=== PATIENT | male | born 1960 | race Two or more races ===

== ENCOUNTER 2019-07-19 23:07 | Inpatient (IN) | payer MEDICAID, OTHER ==
[~2019-07-19] VITALS: Ht 177.8 cm; Wt 88.0 kg
[2019-07-19 23:49] LABS: APPEARANCE,URINE Cloudy (CLEAR); BILIRUBIN,URINE SMALL (NEGATIVE); BLOOD, URINE Large Ery/uL (NEGATIVE); COLOR,URINE Amber (YELLOW); KETONES,URINE Trace (NEGATIVE); LEUKOCYTE ESTERASE ,URINE Negative (NEGATIVE); NITRITE, URINE Negative (NEGATIVE); PROTEIN,URINE >=300 mg/dl (NEGATIVE); UGLUCOSE Negative (NEGATIVE)
[2019-07-19 23:56] LABS: BASOPHILS # (AUTO) 0.1 /CMM (0.0-0.2); BASOPHILS % (AUTO) 0.9 % (0.0-2.0); EOSINOPHILS % (AUTO) 2.3 % (0.0-6.0); HEMATOCRIT 44 % (39-51); HEMOGLOBIN 15.1 g/dL (13.5-17.5); LYMPHOCYTES # (AUTO) 2.4 /CMM (0.8-4.8); LYMPHOCYTES % (AUTO) 23.4 % (20.0-44.0); MEAN CORPUSCULAR HGB CONC 34 g/dl (31.0-36.0); MEAN CORPUSCULAR VOLUME 81 fL (80-96); MONOCYTES % (AUTO) 9.7 % (2.0-12.0); NEUTROPHILS # (AUTO) 6.4 /CMM (1.8-8.9); NEUTROPHILS % (AUTO) 63.7 % (43.0-81.0); PLATELET COUNT (AUTO) 269 /CMM (150-450); RED BLOOD CELL COUNT(AUTO) 5.49 MIL/uL (4.5-6.0); WHITE BLOOD COUNT (AUTO) 10.1 K/uL (4.3-11.0)
[2019-07-20] MEDS ORDERED: LIDOCAINE 2% JEL UROJET 10 ML MM ONE
--- NOTE | 2019-07-20 00:04 | NUR ---
f/c was flushed w/ 100cc of NS. f/c patent . draining pink urine .,
[2019-07-20 00:05] LABS: CALCIUM, SERUM 10.1 mg/dL (8.5-10.1); CARBON DIOXIDE 28 mmol/L (21-32); CHLORIDE 103 mmol/L (98-107); CREATININE 0.9 mg/dL (0.6-1.3); GLUCOSE 121 mg/dL (74-106); POTASSIUM 3.7 mmol/L (3.5-5.1); SODIUM SERUM 139 mmol/L (136-145); UREA NITROGEN, BLOOD 11 mg/dL (7-18)
[2019-07-20 00:22] LABS: ALANINE AMINOTRANSFERASE 22 U/L (12-78); ALBUMIN 3.7 g/dL (3.4-5.0); ALKALINE PHOSPHATASE 120 U/L (46-116); ASPARTATE AMINOTRANSFERASE 16 U/L (15-37); BILIRUBIN,DIRECT 0.1 mg/dL (0.0-0.2); BILIRUBIN,TOTAL 0.6 mg/dL (0.2-1.0); LIPASE 66 U/L (73-393)
[2019-07-20 00:26] LABS: BACTERIA,URINE Few /HPF (None Seen); RBC,URINE TOO NUMEROUS TO COUN /HPF (0-2); SQUAMOUS EPITHELIAL CELL,UR Rare /HPF (None Seen)
[2019-07-20] MEDS ORDERED: CT SWABBABLE VALVE TRANS SET 1 EA INFUS.SET MC ONE (00:28)
[2019-07-20] MEDS ORDERED: IOHEXOL-300 100 ML VIAL IV ONE (00:28)
[2019-07-20] MEDS ORDERED: IV NS 0.9% 500 ML BAG IV ONE (00:30)
--- NOTE | 2019-07-20 03:22 | NUR ---
Patient is resting comfortably in bed with eyes closed. Easily aroused. VSS
[2019-07-20] MEDS ORDERED: ONDANSETRON HCL/PF 4 MG/2 ML VIAL IVP PRN (04:00)
[2019-07-20] MEDS ORDERED: ACETAMINOPHEN 325 MG TABLET PO PRN (04:00)
[2019-07-20] MEDS ORDERED: Z GUARD REMEDY 2 OZ OINT TP PRN (04:00)
[2019-07-20] MEDS ORDERED: HYDROCODONE/APAP 5/325MG 1 EACH TABLET PO PRN (04:00)
[2019-07-20] MEDS ORDERED: MAG HYDROX/AL HYDROX/SIMETH 30 ML UDC PO PRN (04:00)
[2019-07-20] MEDS ORDERED: MORPHINE SULFATE INJ 2 MG/ML DISP.SYRIN IV PRN (04:00)
[2019-07-20] MEDS ORDERED: MAGNESIUM HYDROXIDE 30 ML UDC PO PRN (04:00)
[2019-07-20] MEDS ORDERED: ZOLPIDEM TARTRATE 5 MG TABLET PO PRN (04:00)
[2019-07-20] MEDS ORDERED: ASPI-1152 PO (04:02)
[2019-07-20] MEDS ORDERED: ATOR40TA PO (04:03)
[2019-07-20] MEDS ORDERED: APIX5TAB PO (04:03)
[2019-07-20] MEDS ORDERED: FAMO20TA8 PO (04:04)
[2019-07-20] MEDS ORDERED: MULT1TAB73 PO (04:04)
[2019-07-20] MEDS ORDERED: GABA-534 PO (04:04)
[2019-07-20] MEDS ORDERED: TAMS-12 PO (04:05)
[2019-07-20] MEDS ORDERED: BISA-79 PO (04:05)
[2019-07-20] MEDS ORDERED: NAPR-1192 PO (04:06)
--- NOTE | 2019-07-20 04:06 | NUR ---
PT IS GOING TO [facility] 326-2.
--- NOTE | 2019-07-20 04:25 | NUR ---
report given to paul on third floor
[2019-07-20 05:50] VITALS: BP 106/75
--- NOTE | 2019-07-20 05:57 | NUR ---
pt was transferred to third floor in stable condition.
[2019-07-20] MEDS: IV D5/0.45 NACL 1,000 ML IV PRN (06:00)
--- NOTE | 2019-07-20 06:00 | NUR ---
MS BILL RECAPITULATION CLERK NOTES RECEIVED PATIENT VIA GURNEY ACCOMPANIED BY 2 ER STAFF. ADMITTED TO MS 326-2 DUE TO HEMATURIA. ADMISSION ROUTINE DONE. PATIENT'S BELONGINGS INVENTORY COMPLETED BY THE ASSIGNED TIN FLIPPER. PERINEAL CARE DONE. INDWELLING CATHETER ATTACHED TO URINARY BAG, 225 BRIGHT RED URINE WITH SOME CLOTS NOTED. KEPT PATIENT CLEAN, DRY AND COMFORTABLE. CALL LIGHT WITHIN EASY REACH. ON FALL AND ASPIRATION PRECAUTIONS. WILL CONTINUE TO MONITOR ACCORDINGLY.
--- NOTE | 2019-07-20 07:24 | NUR ---
RN NOTES ALL NEEDS ANTICIPATED, KEPT CLEAN DRY AND COMFORTABLE. INITIAL ADMISSION PROCESS DONE, ENDORSED TO AM NURSE FOR FOR CONTINUITY OF CARE. NO SIGNS OF ACUTE DISTRESS. NPO MAINTAINED.
[2019-07-20 08:00] VITALS: BP 113/56
--- NOTE | 2019-07-20 08:00 | NUR ---
m/s french binder: initial assessment received pt in bed awake, a/ox3. f/c draining well to gravity, still with hematuria (pink). no c/o pain or any discomfort. in no apparent distress noted. will continue to monitor.
[2019-07-20] MEDS: PANTOPRAZOLE 40 MG VIAL IV SCH (08:30)
--- NOTE | 2019-07-20 09:30 | NUR ---
m/s ore feeder: md visit seen by dr. stern and received verbal order to start pt on puree diet. order read back and carried out.
--- NOTE | 2019-07-20 12:56 | NUR ---
m/s flight operations engineer: notes dr. stern notified re: home medications with orders to continue home meds and to hold aspirin, eliquis, and naproxen. orders read back and carried out.
[2019-07-20] MEDS ORDERED: BISACODYL (5 MG) 5 MG TABLET.DR PO PRN (13:00)
--- NOTE | 2019-07-20 14:00 | NUR ---
m/s support associate: notes resting comfortable in bed. no distress noted. will monitor.
[2019-07-20] MEDS: GABAPENTIN 300 MG CAPSULE PO SCH ×2 (14:11→17:20)
[2019-07-20 16:00] VITALS: BP 112/50
[2019-07-20] MEDS: FAMOTIDINE (20 MG) 20 MG TABLET PO SCH (17:20)
[2019-07-20] MEDS: ATORVASTATIN 40 MG TABLET PO SCH (17:20)
--- NOTE | 2019-07-20 18:00 | NUR ---
m/s barrel plater: notes having dinner with hob elevated. no distress noted. needs attended. instructed to call for assistance.
--- NOTE | 2019-07-20 19:25 | NUR ---
RN OPEN NOTES RECEIVED PATIENT AWAKE IN BED. A/OX3. NO SIGNS OF DISTRESS OR DISCOMFORT. BREATHING EVEN AND UNLABORED. IV ACCESS IN RAC WITH D51/2 NS INFUSING, PATENT AND INTACT, NO SIGNS OF REDNESS OR INFILTRATION. HAS F/C INTACT DRAINING PINKISH SEDIMENT FLUID. BED IN LOW LOCKED POSITION WITH SIDE RAILS X2. CALL LIGHT WITHIN REACH. WILL CONTINUE TO MONITOR.
[2019-07-20 20:00] VITALS: BP 118/70
[2019-07-20] MEDS: TAMSULOSIN 0.4 MG CAP.SR.24H PO SCH (21:56)
[2019-07-21] MEDS: IV D5/0.45 NACL 1,000 ML IV PRN ×2 (02:04→22:48)
[2019-07-21 06:46] LABS: BASOPHILS % (AUTO) 0.5 % (0.0-2.0); EOSINOPHILS % (AUTO) 4.2 % (0.0-6.0); HEMATOCRIT 40 % (39-51); HEMOGLOBIN 13.6 g/dL (13.5-17.5); LYMPHOCYTES # (AUTO) 2.1 /CMM (0.8-4.8); LYMPHOCYTES % (AUTO) 25.9 % (20.0-44.0); MEAN CORPUSCULAR HGB CONC 34 g/dl (31.0-36.0); MEAN CORPUSCULAR VOLUME 81 fL (80-96); MONOCYTES # (AUTO) 0.8 /CMM (0.1-1.30); MONOCYTES % (AUTO) 10.3 % (2.0-12.0); NEUTROPHILS # (AUTO) 4.7 /CMM (1.8-8.9); NEUTROPHILS % (AUTO) 59.1 % (43.0-81.0); PLATELET COUNT (AUTO) 220 /CMM (150-450); RED BLOOD CELL COUNT(AUTO) 4.94 MIL/uL (4.5-6.0)
--- NOTE | 2019-07-21 06:55 | NUR ---
RN CLOSING NOTES PATIENT RESTING COMFORTABLY IN BED, EASILY AROUSABLE. A/OX3. NO SIGNS OF DISTRESS OR DISCOMFORT. BREATHING EVEN AND UNLABORED. IV ACCESS IN RAC WITH D51/2 NS INFUSING, PATENT AND INTACT, NO SIGNS OF REDNESS OR INFILTRATION. HAS F/C INTACT DRAINING PINKISH SEDIMENT FLUID. ALL NEEDS MET. NO SIGNIFICANT CHANGES THROUGH THE NIGHT. BED IN LOW LOCKED POSITION WITH SIDE RAILS X2. CALL LIGHT WITHIN REACH. WILL ENDORSE TO AM SHIFT FOR AMRIK.
[2019-07-21 06:56] LABS: CALCIUM, SERUM 9.1 mg/dL (8.5-10.1); CREATININE 0.8 mg/dL (0.6-1.3); MAGNESIUM 2.1 mg/dL (1.8-2.4); PHOSPHORUS 3.9 mg/dL (2.5-4.9); POTASSIUM 3.7 mmol/L (3.5-5.1)
[2019-07-21 07:10] LABS: THYROID STIMULATING HORMONE 1.838 uIU/mL (0.358-3.74)
--- NOTE | 2019-07-21 07:30 | NUR ---
MS/RN Opening note Patient received resting in bed A/O x3, showing no signs of acute distress or SOB, saturating well on RA. Michael catheter noted with output light pink colored. IV on the RAC 18g is clean and running at 75ml/hr. Patient complains of no pain at this time. Bed is in lowest position, side rails x2 in upright position, safety and aspiration precautions initiated. Will continue with current plan of care.
[2019-07-21 08:00] VITALS: BP 96/66
[2019-07-21] MEDS: GABAPENTIN 300 MG CAPSULE PO SCH ×3 (08:11→16:17)
[2019-07-21] MEDS: FAMOTIDINE (20 MG) 20 MG TABLET PO SCH ×2 (08:12→16:17)
[2019-07-21] MEDS: PANTOPRAZOLE 40 MG VIAL IV SCH (08:12)
--- NOTE | 2019-07-21 10:44 | NUR ---
WOUND CARE CONSULT: PT PRESENTS WITH MURRAY CATH AND BLANCHABLE REDNESS TO SACRAL AREA, PRESENT ON ADMISSION. RECOMMENDATIONS MADE FOR SKIN PROTECTION. DISCUSSED WITH NURSING STAFF. WILL SEE PRN. CAIN IN AGREEMENT WITH PLAN OF CARE. Addendum: 07/21/19 at 1045 by DOMITILA PLUNKETT WNDNU Amended: Links added.
[2019-07-21 16:00] VITALS: BP 116/73
[2019-07-21] MEDS: ATORVASTATIN 40 MG TABLET PO SCH (17:00)
--- NOTE | 2019-07-21 18:02 | NUR ---
MS/RN Closing note Patient is resting in bed, A/O x3, showing no signs of acute distress or SOB. Vital signs WNL and is saturating well on RA. Iv line on the RAC 18g is running at 75ml/hr. All patient needs met, all due meds given. Bed is in lowest position, side rails x2 in upright position, call light is within reach and patient is aware of how to call for assistance when needed. Fall, safety, and aspiration precautions enforced. Will endorse to rx specialist.
--- NOTE | 2019-07-21 19:30 | NUR ---
MS RN NOTES: RECEIVED PATIENT IN BED, RESTING AND ALERT. PATIENT IS A/OX3, VERBALLY RESPONSIVE AND ABLE TO MAKE NEEDS KNOWN. NO SOB NOTED, NO S/S OF ACUTE DISTRESS. ON ROOM AIR. BREATHING EVEN AND UNLABORED. PATIENT HAS NO COMPLAINS OF PAIN AT THIS TIME. MURRAY CATHETER NOTED WITH LIGHT PINK COLORED OUTPUT. IV ACCESS ON THE RIGHT AC #18G INTACT AND PATENT. SAFETY AND ASPIRATION PRECAUTION ARE IN PLACE. BED IS IN LOW LOCKED POSITION WITH SIDE RAILS UP X2. WILL CONTINUE TO MONITOR ACCORDINGLY.
[2019-07-21 20:00] VITALS: BP 108/70
[2019-07-21] MEDS: TAMSULOSIN 0.4 MG CAP.SR.24H PO SCH (21:53)
--- NOTE | 2019-07-22 06:23 | NUR ---
MS RN CLOSING NOTES: PATIENT IS AWAKE IN BED. STABLE AND VERBALLY RESPONSIVE. ABLE TO MAKE NEEDS KNOWN. A/O X 3. NO SOB NOTED. NO S/S OF ACUTE DISTRESS. ON ROOM AIR, BREATHING EVEN AND UNLABORED. NO COMPLAINS OF PAIN OR DISCOMFORT AT THIS TIME. VITAL SIGNS WITHIN NORMAL LIMITS. IV LINE ON RIGHT RIGHT AC #18G IS RUNNING AT 75ML/HR. INTACT AND PATENT. MURRAY CATHETER IN PLACE NOTED WITH OUTPUT OF 1450 LIGHT PINK IN COLOR. ALL DUE MEDICATION GIVEN ORDERED. TOLERATED WELL. KEPT PATIENT CLEAN AND DRY AT ALL TIMES. ALL NURSING NEEDS MET AND PROVIDED. FALL AND ASPIRATION PRECAUTIONS ENFORCED. SAFETY MEASURES KEPT IN PLACE. BED IS IN LOW LOCKED POSITION WITH SIDE RAILS UP X2. CALL LIGHT WITHIN EASY REACH OF THE PATIENT. WILL ENDORSE TO DAY SHIFT NURSE FOR AMRIK.
[2019-07-22 07:03] LABS: BASOPHILS % (AUTO) 0.6 % (0.0-2.0); HEMATOCRIT 41 % (39-51); HEMOGLOBIN 13.4 g/dL (13.5-17.5); LYMPHOCYTES # (AUTO) 2.2 /CMM (0.8-4.8); LYMPHOCYTES % (AUTO) 28.9 % (20.0-44.0); MEAN CORPUSCULAR HGB CONC 33 g/dl (31.0-36.0); MEAN CORPUSCULAR VOLUME 82 fL (80-96); MONOCYTES # (AUTO) 0.8 /CMM (0.1-1.30); MONOCYTES % (AUTO) 10.7 % (2.0-12.0); NEUTROPHILS # (AUTO) 4.3 /CMM (1.8-8.9); NEUTROPHILS % (AUTO) 55.8 % (43.0-81.0); PLATELET COUNT (AUTO) 208 /CMM (150-450); RED BLOOD CELL COUNT(AUTO) 4.94 MIL/uL (4.5-6.0); WHITE BLOOD COUNT (AUTO) 7.7 K/uL (4.3-11.0)
[2019-07-22 07:18] LABS: CALCIUM, SERUM 9.2 mg/dL (8.5-10.1); CREATININE 0.8 mg/dL (0.6-1.3); MAGNESIUM 2.1 mg/dL (1.8-2.4); PHOSPHORUS 3.7 mg/dL (2.5-4.9); POTASSIUM 3.8 mmol/L (3.5-5.1)
--- NOTE | 2019-07-22 07:48 | NUR ---
M/S RN OPENING NOTES PATIENT CURRENTLY RESTING IN BED A/O x3. ABLE TO RESPOND AND LISTEN TO COMMANDS. NO SIGNS OF ACUTE DISTRESS AND NO CURRENT COMPLAINTS OF PAIN. IV LOCATED ON R AC #18 INTACT AND PATENT RUNNING D5. MURRAY IN PLACE WITH SLIGHT LIGHT PINK/ YELLOW OUTPUT. SAFETY PRECAUTIONS ARE IN PLACE WITH BED IN LOWEST POSITION, BREAKS ON, AND CALL LIGHT WITHIN REACH. WILL CONTINUE TO MONITOR.
[2019-07-22 08:00] VITALS: BP 108/74
[2019-07-22] MEDS: GABAPENTIN 300 MG CAPSULE PO SCH ×3 (08:11→17:08)
[2019-07-22] MEDS: PANTOPRAZOLE 40 MG VIAL IV SCH (08:11)
[2019-07-22] MEDS: FAMOTIDINE (20 MG) 20 MG TABLET PO SCH ×2 (08:11→17:08)
[2019-07-22] MEDS ORDERED: TAMSULOSIN 0.4 MG CAP.SR.24H PO SCH (11:30)
--- NOTE | 2019-07-22 13:40 | NUR ---
M/S MEDICAL RECORDS MEDICAL RECORDS FROM [facility].
[2019-07-22] MEDS: IV D5/0.45 NACL 1,000 ML IV PRN (14:49)
--- NOTE | 2019-07-22 15:02 | NUR ---
Jennifer NAGEL MURRAY CATH MURRAY CATHETER REMOVED. 1200 CC OF YELLOW CLEAR URINE. Addendum: 07/22/19 at 1744 by EMELI GANDARA RN CORRECTION TO ABOVE NOTE MURRAY CATHETER REMOVED ORDERED. TOTAL URINE OUTPUT 2100 OF YELLOW, SLIGHTLY PINK URINE OUTPUT. PATIENT DENIES PAIN UPON REMOVAL. TRIAL VOID INITIATED.
[2019-07-22 16:00] VITALS: BP 124/73
[2019-07-22] MEDS: ATORVASTATIN 40 MG TABLET PO SCH (17:09)
--- NOTE | 2019-07-22 17:44 | NUR ---
M/S RN CLOSING NOTES PATIENT CURRENTLY RESTING IN BED, A/O x3. ABLE TO MAKE NEEDS KNOWN. NO SIGNS OF ACUTE DISTRESS AND NO CURRENT COMPLAINTS OF PAIN. PATIENT DENIES BLADDER PAIN. NO BLADDER FULLNESS NOTED. BLADDER SCAN TO BE PERFORMED AROUND 0800 PM ORDERED. PATIENT KEPT CLEAN AND DRY THROUGHOUT SHIFT. IV LOCATED ON R AC #18 RUNNING D5 1/2 NS @ 7ML/HR. SAFETY PRECAUTIONS IN PLACE WITH BED IN LOWEST POSITION, BREAKS ON, SIDE RAILS UP x2, AND CALL LIGHT WITHIN REACH. WILL ENDORSE TO ONCOMING SHIFT ABOUT AMRIK.
--- NOTE | 2019-07-22 19:35 | NUR ---
MS RN OPENING NOTES: RECEIVED PATIENT AWAKE IN BED. A/O X3. VERBALLY RESPONSIVE AND ABLE TO MAKE NEEDS KNOWN. NO SOB NOTED. ON ROOM AIR. BREATHING EVEN AND UNLABORED. NO S/S OF ACUTE DISTRESS. IV ACCESS LOCATED ON THE RIGHT AC #18G INTACT AND PATENT, RUNNING D5 1/2 NS @ 75 MLS/HR. NO BLADDER FULLNESS NOTED, BLADDER SCAN TO BE DONE AT 2000 ORDERED. PATIENT DENIES BLADDER PAIN. NO COMPLAINS OF PAIN OR DISCOMFORT AT THIS TIME. SAFETY PRECAUTIONS ARE IN PLACE. BED IS IN LOW, LOCKED POSITION WITH SIDE RAILS UP X2. CALL LIGHT WITHIN REACH. WILL CONTINUE TO MONITOR ACCORDINGLY.
[2019-07-22 20:00] VITALS: BP 99/64
--- NOTE | 2019-07-22 20:00 | NUR ---
MS RN NOTES: BLADDER SCAN PERFORMED AT [address] HARPER. PVR READING OF 240 ML. TO BE ASSESSED [id number]. PATIENT STATED HE URINATED 4X. NO COMPLAINS OF BLADDER PAIN AT THIS TIME. WILL CONTINUE TO MONITOR PATIENT FOR CHANGES.
[2019-07-22] MEDS: TAMSULOSIN 0.4 MG CAP.SR.24H PO SCH (21:10)
--- NOTE | 2019-07-23 02:00 | NUR ---
MS RN NOTES: BLADDER SCAN PERFORMED AT 0200. PVR READING OF 194 ML APPEARING IN LIGHT YELLOW COLOR. TO BE ASSESSED [id number]. PATIENT STATED HE IS URINATING WELL WITH NO BLADDER PAIN. WILL CONTINUE TO MONITOR PATIENT FOR CHANGES.
[2019-07-23] MEDS: IV D5/0.45 NACL 1,000 ML IV PRN (04:36)
--- NOTE | 2019-07-23 06:45 | NUR ---
MS RN CLOSING NOTES: PATIENT IS AWAKE IN BED. STABLE AND VERBALLY RESPONSIVE. ABLE TO MAKE NEEDS KNOWN. A/O X 3. NO SOB NOTED. NO S/S OF ACUTE DISTRESS. ON ROOM AIR, BREATHING EVEN AND UNLABORED. NO COMPLAINS OF PAIN OR DISCOMFORT AT THIS TIME. VITAL SIGNS WITHIN NORMAL LIMITS. IV LINE ON RIGHT RIGHT AC #18G IS RUNNING AT 75ML/HR. INTACT AND PATENT. BLADDER SCAN ORDER [id number]. PVR OF 240ML AT 2000, AND PVR OF 194ML AT 0200. NO STRAIGHT CATH NEEDED. PATIENT URINATED TWICE DURING SHIFT WITH NO COMPLAINS OF BLADDER PAIN. URINE APPEARING IN YELLOW COLOR. ALL DUE MEDICATION GIVEN ORDERED. TOLERATED WELL. KEPT PATIENT CLEAN AND DRY AT ALL TIMES. ALL NURSING NEEDS MET AND PROVIDED. KEPT PT WARM AND COMFORTABLE THROUGHOUT THE SHIFT. FALL AND ASPIRATION PRECAUTIONS ENFORCED. SAFETY MEASURES KEPT IN PLACE. HOB ELEVATED. BED IS IN LOW LOCKED POSITION WITH SIDE RAILS UP X2. CALL LIGHT WITHIN EASY REACH OF THE PATIENT. WILL ENDORSE TO DAY SHIFT NURSE FOR AMRIK.
--- NOTE | 2019-07-23 07:31 | NUR ---
MS RN NOTES PATIENT IS IN BED AWAKE, ALERT AND ORIENTED X 4. PATIENT IS STABLE AND VERBALLY RESPONSIVE. DENIES PAIN, AND DENIES ACUTE DISTRESS. BREATHING EVENLY WITH UNLABORED RESPIRATIONS. IV IS RAC #18G RUNNING 75ML/HR D5 1/2 NS. THE IV IS CLEAN, DRY AND INTACT. SHOWS NO SIGNS OF INFILTRATION, AND NO REDNESS. SAFETY PRECAUTIONS IN PLACE. BED IN LOWEST POSITION, LOCKED, AND CALL LIGHT KEPT WITHIN REACH. WILL CONTINUE TO MONITOR.
[2019-07-23 08:00] VITALS: BP 113/73
[2019-07-23 08:09] LABS: BASOPHILS % (AUTO) 0.5 % (0.0-2.0); EOSINOPHILS % (AUTO) 3.8 % (0.0-6.0); HEMATOCRIT 39 % (39-51); LYMPHOCYTES % (AUTO) 27.1 % (20.0-44.0); MEAN CORPUSCULAR HGB CONC 34 g/dl (31.0-36.0); MEAN CORPUSCULAR VOLUME 81 fL (80-96); MONOCYTES # (AUTO) 0.7 /CMM (0.1-1.30); MONOCYTES % (AUTO) 10.2 % (2.0-12.0); NEUTROPHILS # (AUTO) 4.3 /CMM (1.8-8.9); NEUTROPHILS % (AUTO) 58.4 % (43.0-81.0); PLATELET COUNT (AUTO) 215 /CMM (150-450); RED BLOOD CELL COUNT(AUTO) 4.82 MIL/uL (4.5-6.0); WHITE BLOOD COUNT (AUTO) 7.4 K/uL (4.3-11.0)
[2019-07-23 08:36] LABS: CALCIUM, SERUM 9.1 mg/dL (8.5-10.1); CREATININE 0.8 mg/dL (0.6-1.3); POTASSIUM 3.7 mmol/L (3.5-5.1)
[2019-07-23] MEDS: PANTOPRAZOLE 40 MG VIAL IV SCH (09:12)
[2019-07-23] MEDS: FAMOTIDINE (20 MG) 20 MG TABLET PO SCH (09:12)
[2019-07-23] MEDS: GABAPENTIN 300 MG CAPSULE PO SCH ×3 (09:12→12:40)
--- NOTE | 2019-07-23 16:00 | NUR ---
MS RN NOTES PATIENT IS MEDICALLY STABLE. PATIENT SHOWS NO SIGNS OF ACUTE DISTRESS, NO ACUTE PAIN. BREATHING EVEN AND UNLABORED. IV IS CLEAN, DRY AND INTACT. TAKEN OUT WITH CATHETER INTACT. ID TAKEN OFF. PATIENT LEFT WITH AMBULANCE TO NURSING CARE FACILITY. PATIENT TAUGHT DISCHARGE INSTRUCTORS AND DEMONSTRATED UNDERSTANDING. NO NEW SKIN BREAKDOWNS. NO MISSING BELONGINGS. DOC IS AWARE OF DISCHARGE.
== END 2019-07-23 16:15 | DRG 468 ==
LOC: ER 23:08 → MED 07-20 05:32
DX: R31.9 Hematuria, unspecified (principal); I31.3 Pericardial effusion (noninflammatory); N40.1 Benign prostatic hyperplasia with lower urinary tract symptoms; R33.8 Other retention of urine; I69.354 Hemiplegia and hemiparesis following cerebral infarction affecting left non-dominant side; E78.5 Hyperlipidemia, unspecified; N40.0 Benign prostatic hyperplasia without lower urinary tract symptoms; K59.00 Constipation, unspecified; I10 Essential (primary) hypertension
CPT/HCPCS: 36415; 80048-TC; 80061-TC; 80076-TC; 81000-TC; 83690-TC; 83735-TC; 84100-TC; 84443-TC; 84484-TC; 85025-TC; 87081-TC; 87086-TC; 97112-TC; 97530-TC; C9113; G0378; J3490; J7040; Q9967

== ENCOUNTER 2020-03-27 09:56 | Emergency (ER) | payer MEDICAID, OTHER ==
[~2020-03-27] VITALS: Ht 177.8 cm; Wt 91.2 kg
[~2020-03-27 09:56] MED LIST: APIX5TAB PO; ASPI-1152 PO; ATOR40TA PO; BISA-79 PO; FAMO20TA8 PO; GABA-534 PO; MULT-754 PO; NAPR-1192 PO; TAMS-12 PO
--- NOTE | 2020-03-27 10:05 | NUR ---
patient bibra from care facility. c/o bloody drainage from the castro. On room, air, breathing evenly and unlabored. connected to the monitor and pulse ox. kept comfortable, will continue to monitor accordingly.
[2020-03-27] MEDS ORDERED: LIDOCAINE 2% JEL UROJET 10 ML MM ONE (10:12)
[2020-03-27 10:19] LABS: BASOPHILS # (AUTO) 0.1 /CMM (0.0-0.2); BASOPHILS % (AUTO) 0.8 % (0.0-2.0); EOSINOPHILS % (AUTO) 3.9 % (0.0-6.0); HEMATOCRIT 45 % (39-51); HEMOGLOBIN 14.8 g/dL (13.5-17.5); LYMPHOCYTES # (AUTO) 1.6 /CMM (0.8-4.8); LYMPHOCYTES % (AUTO) 19.5 % (20.0-44.0); MEAN CORPUSCULAR HGB CONC 33 g/dl (31.0-36.0); MEAN CORPUSCULAR VOLUME 83 fL (80-96); MONOCYTES # (AUTO) 0.6 /CMM (0.1-1.30); MONOCYTES % (AUTO) 7.6 % (2.0-12.0); NEUTROPHILS # (AUTO) 5.7 /CMM (1.8-8.9); NEUTROPHILS % (AUTO) 68.2 % (43.0-81.0); PLATELET COUNT (AUTO) 209 /CMM (150-450); RED BLOOD CELL COUNT(AUTO) 5.44 MIL/uL (4.5-6.0); WHITE BLOOD COUNT (AUTO) 8.3 K/uL (4.3-11.0)
[2020-03-27] MEDS ORDERED: IV NS 0.9% 500 ML BAG IV ONE (10:30)
[2020-03-27 10:33] LABS: APPEARANCE,URINE Turbid (CLEAR); BILIRUBIN,URINE SMALL (NEGATIVE); BLOOD, URINE Large Ery/uL (NEGATIVE); COLOR,URINE Amber (YELLOW); KETONES,URINE Negative (NEGATIVE); LEUKOCYTE ESTERASE ,URINE Negative (NEGATIVE); NITRITE, URINE Negative (NEGATIVE); PH,URINE 5.5 (5.0-8.0); PROTEIN,URINE >=300 mg/dl (NEGATIVE); UGLUCOSE Negative (NEGATIVE)
[2020-03-27 10:34] LABS: ALBUMIN 3.6 g/dL (3.4-5.0); BILIRUBIN,DIRECT 0.1 mg/dL (0.0-0.2); BILIRUBIN,TOTAL 0.5 mg/dL (0.2-1.0); CALCIUM, SERUM 9.5 mg/dL (8.5-10.1); CREATININE 0.9 mg/dL (0.6-1.3); POTASSIUM 3.8 mmol/L (3.5-5.1); TOTAL PROTEIN, SERUM 7.9 g/dL (6.4-8.2)
[2020-03-27 10:36] LABS: RBC,URINE TOO NUMEROUS TO COUN /HPF (0-2)
[2020-03-27 10:38] LABS: BACTERIA,URINE Few /HPF (None Seen); SQUAMOUS EPITHELIAL CELL,UR Rare /HPF (None Seen)
--- NOTE | 2020-03-27 12:04 | NUR ---
CALLED TRANSPORT [phone]. ETA 1330 PER SILVA.
[2020-03-27 13:52] VITALS: BP 120/80
--- NOTE | 2020-03-27 13:53 | NUR ---
patient picked up by private ambulance in no distress. Denies any pain or discomfort.
[2020-03-28] MEDS ORDERED: SULF1TAB48 PO (11:32)
[2020-03-28] MEDS ORDERED: PANT40TA2 PO (11:32)
[2020-03-28] MEDS ORDERED: CEPH500C2 PO (11:32)
== END 2020-03-27 13:53 | disposition home or self-care (01) ==
LOC: ER 10:03
DX: R31.9 Hematuria, unspecified (principal); I10 Essential (primary) hypertension; E78.5 Hyperlipidemia, unspecified; Z86.73 Personal history of transient ischemic attack (TIA), and cerebral infarction without residual deficits; Z79.899 Other long term (current) drug therapy; Z79.82 Long term (current) use of aspirin
CPT/HCPCS: 36415; 51702; 74176; 80048; 80076; 81001; 85025; 85730; 87086; 99284; A4217 ×2; J3490; J7040; 81000-TC

== ENCOUNTER 2020-03-28 09:29 | Inpatient (IN) | payer MEDICAID ==
[~2020-03-28] VITALS: Ht 177.8 cm; Wt 95.7 kg
--- NOTE | 2020-03-28 10:00 | NUR ---
patient bibprivate ambulance, from [facility], c/o hematuria. On room air, breathing evenly and unlabored. connected to the monitor and pulse ox. kept comfortable, will continue to monitor accordingly.
[2020-03-28 10:07] LABS: BASOPHILS # (AUTO) 0.1 /CMM (0.0-0.2); BASOPHILS % (AUTO) 0.7 % (0.0-2.0); EOSINOPHILS % (AUTO) 3.4 % (0.0-6.0); HEMATOCRIT 44 % (39-51); HEMOGLOBIN 14.7 g/dL (13.5-17.5); LYMPHOCYTES # (AUTO) 1.7 /CMM (0.8-4.8); LYMPHOCYTES % (AUTO) 19.5 % (20.0-44.0); MEAN CORPUSCULAR HGB CONC 33 g/dl (31.0-36.0); MEAN CORPUSCULAR VOLUME 83 fL (80-96); MONOCYTES # (AUTO) 0.8 /CMM (0.1-1.30); NEUTROPHILS # (AUTO) 5.7 /CMM (1.8-8.9); NEUTROPHILS % (AUTO) 67.4 % (43.0-81.0); PLATELET COUNT (AUTO) 227 /CMM (150-450); RED BLOOD CELL COUNT(AUTO) 5.35 MIL/uL (4.5-6.0); WHITE BLOOD COUNT (AUTO) 8.5 K/uL (4.3-11.0)
[2020-03-28 10:13] LABS: CALCIUM, SERUM 9.4 mg/dL (8.5-10.1); CREATININE 0.8 mg/dL (0.6-1.3); POTASSIUM 3.9 mmol/L (3.5-5.1)
--- NOTE | 2020-03-28 10:23 | NUR ---
PAGED [facility].
--- NOTE | 2020-03-28 10:30 | NUR ---
CALLED NURSING SUP FOR M/S BED.
--- NOTE | 2020-03-28 10:53 | NUR ---
PAGED EPIC SECOND ATTEMPT.
[2020-03-28] MEDS ORDERED: CEPH500C2 PO (11:32)
[2020-03-28] MEDS ORDERED: SULF1TAB48 PO (11:32)
[2020-03-28] MEDS ORDERED: PANT40TA2 PO (11:32)
--- NOTE | 2020-03-28 11:40 | NUR ---
NURSING SUP GAVE [id number].
--- NOTE | 2020-03-28 11:43 | NUR ---
report given to Ghazal NAGEL for michael
--- NOTE | 2020-03-28 13:11 | NUR ---
COVID RESULT: NEGATIVE
--- NOTE | 2020-03-28 13:35 | NUR ---
wheeled patient via gurney accompanied by EMT in no distress. RN at bedside to assume care.
--- NOTE | 2020-03-28 14:12 | NUR ---
MS/sewer line repairer New admission from emergency room with diagnosis of hematuria. Fully admitted, skin assessment carried out. Patient noted to have rash/discoloration to buttocks, picture taken and placed in chart. 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 Awaiting admitting orders from Dr Pedraza.
[2020-03-28 16:00] VITALS: BP 143/95
[2020-03-28] MEDS ORDERED: Z GUARD REMEDY 2 OZ OINT TP PRN (16:30)
[2020-03-28] MEDS ORDERED: HYDROCODONE/APAP 5/325MG 1 EACH TABLET PO PRN (16:30)
[2020-03-28] MEDS ORDERED: ONDANSETRON HCL/PF 4 MG/2 ML VIAL IVP PRN (16:30)
[2020-03-28] MEDS ORDERED: MAG HYDROX/AL HYDROX/SIMETH 30 ML UDC PO PRN (16:30)
[2020-03-28] MEDS ORDERED: ZOLPIDEM TARTRATE 5 MG TABLET PO PRN (16:30)
[2020-03-28] MEDS ORDERED: ACETAMINOPHEN 325 MG TABLET PO PRN (16:30)
[2020-03-28] MEDS ORDERED: MAGNESIUM HYDROXIDE 30 ML UDC PO PRN (16:30)
--- NOTE | 2020-03-28 17:24 | NUR ---
MS/RN Orders Orders entered by Dr Pedraza. Urine ordered for UA and culture, specimen collected in ER on patient's visit yesterday.
--- NOTE | 2020-03-28 18:12 | NUR ---
MS/RN End note Patient remains in stable condition, all orders noted and carried out. Denies pain or discomfort, castro catheter remains with chase hematuria, no clots noted. All questions and concerns addressed. Call light within reach, bed in low setting, side rails X3 in upright position. Will continue to monitor and endorse to night monitor.
--- NOTE | 2020-03-28 19:23 | NUR ---
MS RN OPENING NOTES PATIENT AWAKE IN BED. A/OX3. ON RA. NO C/O SOB OR PAIN. BREATHING IS EVEN AND UNLABORED. IV PRESENT ON RIGHT AC, SIZE 18, INTACT & PATENT, HEP LOCKED. MURRAY CATH PRESENT, 50 CC URINE WITH HEMATURIA PRESENT. SAFETY MEASURES IN PLACE AND PATIENT'S NEEDS MET. BED LOCKED, ALARM ON, SIDE RAILS X2, CALL LIGHT WITHIN REACH. WILL CONTINUE TO MONITOR.
[2020-03-28 20:00] VITALS: BP 115/71
[2020-03-28 20:53] VITALS: BP 115/71
[2020-03-29 06:31] LABS: BASOPHILS # (AUTO) 0.1 /CMM (0.0-0.2); BASOPHILS % (AUTO) 0.8 % (0.0-2.0); EOSINOPHILS % (AUTO) 3.2 % (0.0-6.0); HEMATOCRIT 43 % (39-51); HEMOGLOBIN 14.2 g/dL (13.5-17.5); LYMPHOCYTES # (AUTO) 1.9 /CMM (0.8-4.8); LYMPHOCYTES % (AUTO) 20.4 % (20.0-44.0); MEAN CORPUSCULAR HGB CONC 33 g/dl (31.0-36.0); MEAN CORPUSCULAR VOLUME 81 fL (80-96); MONOCYTES % (AUTO) 10.4 % (2.0-12.0); NEUTROPHILS % (AUTO) 65.2 % (43.0-81.0); PLATELET COUNT (AUTO) 227 /CMM (150-450); WHITE BLOOD COUNT (AUTO) 9.3 K/uL (4.3-11.0)
[2020-03-29 06:38] LABS: CALCIUM, SERUM 9.2 mg/dL (8.5-10.1); CREATININE 0.8 mg/dL (0.6-1.3); MAGNESIUM 2.2 mg/dL (1.8-2.4); PHOSPHORUS 4.1 mg/dL (2.5-4.9); POTASSIUM 3.9 mmol/L (3.5-5.1)
[2020-03-29 06:48] LABS: THYROID STIMULATING HORMONE 1.261 uIU/mL (0.358-3.74)
--- NOTE | 2020-03-29 07:37 | NUR ---
MS RN CLOSING NOTES PATIENT AWAKE IN BED. REMAINED STABLE DURING SHIFT. NO C/O SOB OR PAIN. IV ON RIGHT AC, SIZE 18, INTACT & PATENT, HEP LOCKED. MURRAY CATH REMAINS INTACT & PATENT. SAFETY MEASURES IN PLACE AND PATIENT'S NEEDS MET. BED LOCKED, ALARM ON, SIDE RAILS X2, CALL LIGHT WITHIN REACH. ENDORSED TO DAY SHIFT RN PLAN OF CARE.
[2020-03-29 08:00] VITALS: BP 115/80
[2020-03-29] MEDS ORDERED: GABA600T12 PO (09:31)
--- NOTE | 2020-03-29 10:21 | NUR ---
WOUND CARE CONSULT; PT PRESENTS WITH LEFT BUTTOCK SCRATCHES/IRRITATION, PRESENT ON ADMISSION. PT ABLE TO ASSIST WITH TURNING AND REPOSITIONING IN BED. TERRI MCCOLLUM NOTED. RECOMMENDATIONS MADE FOR SKIN PROTECTION. DISCUSSED WITH NURSING STAFF. WILL SEE PRN. CAIN IN AGREEMENT WITH PLAN OF CARE. CURRENT JUSTIN SCORE IS 15. PT IS ON [facility]OST[facility] LOW AIRLOSS BED. Addendum: 03/29/20 at 1023 by DOMITILA PLUNKETT WNDNU Amended: Links added.
[2020-03-29] MEDS ORDERED: Medication Not On Formulary EA (Multivitamins 1 TAB) PO SCH (12:30)
[2020-03-29] MEDS: MULTIVITAMINS,THERAGRAN 1 UDTAB TABLET PO SCH (12:36)
[2020-03-29] MEDS: PANTOPRAZOLE 40 MG TABLET.DR PO SCH (12:36)
[2020-03-29] MEDS: GABAPENTIN 300 MG CAPSULE PO SCH ×3 (12:36→21:32)
[2020-03-29] MEDS ORDERED: Medication Not On Formulary EA (Gabapentin 600 MG) PO SCH (13:00)
--- NOTE | 2020-03-29 18:15 | NUR ---
RN END OF SHIFT SUMMARY PT IS A/OX4, AFEBRILE. NON-MONITORED, VSS. TOLERATING RA. RESPIRATIONS ARE EVEN AND UNLABORED, NOT IN ANY ACUTE DISTRESS NOTED. DENIES ANY CHEST PAIN, SOB, N/V. +FLATUS, BMX1. MURRAY CATH IN PLACE. IRRIGATED MURRAY 60CC X1. NO HEMATURIA NOTED. YELLOW URINE DRAINING W/ SEDIMENTS NOTED. DENIES ANY BLADDER DISCOMFORT. SKIN CDI. ALL NEEDS MET AND RENDERED. SAFETY MEASURES ARE IN PLACE. CALL LIGHT IS LEFT WITHIN REACH. WILL MONITOR AND CONTINUE POC.
--- NOTE | 2020-03-29 19:35 | NUR ---
MS RN OPENING NOTES PATIENT SLEEPING IN BED, EASY TO AWAKEN. A/OX3. ON RA. NO S/S OF ACUTE RESPIRATORY DISTRESS; BREATHING IS EVEN AND UNLABORED. NO S/S OF PAIN NOTED. IV PRESENT ON RIGHT AC, SIZE 18, INTACT & PATENT, HEP LOCKED. MURRAY CATH PRESENT AND DRAINING WELL WITH SLIGHT HEMATURIA PRESENT. SAFETY MEASURES IN PLACE AND PATIENT'S NEEDS MET. BED LOCKED, ALARM ON, SIDE RAILS X2, CALL LIGHT WITHIN REACH. WILL CONTINUE TO MONITOR.
[2020-03-29 21:30] VITALS: BP 97/69
[2020-03-29] MEDS: TAMSULOSIN 0.4 MG CAP.SR.24H PO SCH (21:32)
[2020-03-29] MEDS: ATORVASTATIN 40 MG TABLET PO SCH ×3 (21:32→22:00)
--- NOTE | 2020-03-29 22:09 | NUR ---
MS RN NOTES DUPLICATE SCHEDULED ATORVASTATIN 40MG PO HS NOTED ON EMAR FOR 2100 AND 2200. ADMINISTERED MEDICATION ONCE AT 2135 PER MD ORDERS.
[2020-03-30 06:26] LABS: BASOPHILS # (AUTO) 0.1 /CMM (0.0-0.2); BASOPHILS % (AUTO) 0.7 % (0.0-2.0); EOSINOPHILS % (AUTO) 4.1 % (0.0-6.0); HEMATOCRIT 45 % (39-51); HEMOGLOBIN 14.6 g/dL (13.5-17.5); LYMPHOCYTES # (AUTO) 2.1 /CMM (0.8-4.8); LYMPHOCYTES % (AUTO) 25.7 % (20.0-44.0); MEAN CORPUSCULAR HGB CONC 33 g/dl (31.0-36.0); MEAN CORPUSCULAR VOLUME 83 fL (80-96); MONOCYTES # (AUTO) 0.9 /CMM (0.1-1.30); MONOCYTES % (AUTO) 10.6 % (2.0-12.0); NEUTROPHILS # (AUTO) 4.8 /CMM (1.8-8.9); NEUTROPHILS % (AUTO) 58.9 % (43.0-81.0); PLATELET COUNT (AUTO) 220 /CMM (150-450); RED BLOOD CELL COUNT(AUTO) 5.41 MIL/uL (4.5-6.0); WHITE BLOOD COUNT (AUTO) 8.1 K/uL (4.3-11.0)
--- NOTE | 2020-03-30 06:30 | NUR ---
MS RN CLOSING NOTES PATIENT AWAKE IN BED. NO C/O SOB OR PAIN. IV ON RIGHT AC, SIZE 18, INTACT & PATENT, HEP LOCKED. MURRAY CATH REMAINS INTACT & PATENT; 700 CC OF CLEAR YELLOW URINE EMPTIED. SAFETY MEASURES IN PLACE AND PATIENT'S NEEDS MET. BED LOCKED, ALARM ON, SIDE RAILS X2, CALL LIGHT WITHIN REACH. WILL ENDORSE TO DAY SHIFT RN PLAN OF CARE.
[2020-03-30 06:37] LABS: CALCIUM, SERUM 9.3 mg/dL (8.5-10.1); CREATININE 0.8 mg/dL (0.6-1.3); MAGNESIUM 2.4 mg/dL (1.8-2.4); PHOSPHORUS 4.1 mg/dL (2.5-4.9); POTASSIUM 3.6 mmol/L (3.5-5.1)
[2020-03-30] MEDS: PANTOPRAZOLE 40 MG TABLET.DR PO SCH (07:30)
[2020-03-30 08:00] VITALS: BP 110/71
--- NOTE | 2020-03-30 08:00 | NUR ---
MS RN NOTES PATIENT IN BED RESTING NO SOB OR ACUTE DISTRESS NOTED. PATIENT ALERT, ORIENTED X3. BED IN LOW LOCKED POSITION. CALL LIGHT WITHIN REACH. MURRAY INTACT PATENT, DRAINING YELLOW URIN. WILL CONTINUE TO MONITOR.
[2020-03-30] MEDS: MULTIVITAMINS,THERAGRAN 1 UDTAB TABLET PO SCH (08:13)
[2020-03-30] MEDS: GABAPENTIN 300 MG CAPSULE PO SCH ×3 (08:13→16:29)
[2020-03-30] MEDS ORDERED: ASPIRIN EC 81 MG TABLET.DR PO SCH (09:00)
--- NOTE | 2020-03-30 15:00 | NUR ---
ORDERED MURRAY CATH REMOVED WILL MONITOR FOR RETENTION.
[2020-03-30 16:00] VITALS: BP 113/70
[2020-03-30] MEDS: TAMSULOSIN 0.4 MG CAP.SR.24H PO SCH (16:51)
--- NOTE | 2020-03-30 18:00 | NUR ---
MS RN NOTES TRANSFORATION HERE AT BEDSIDE PATIENT HAS NOT URINATED. DR. ELDRIDGE MADE AWARE ORDERS TO RESCHEDULE TRANSPORTATION FOR 9PM IF PATIENT HAS NOT URINATED REINSERT MURRAY AND DISCHARGE WITH MURRAY. ORDERS NOTED. CASE MANAGENT MADE AWARE TO RESCHEDULE TRANSPORTATION FOR 9PM.
--- NOTE | 2020-03-30 19:00 | NUR ---
MS RN NOTES RECEIVED PT IN BED AWAKE AND ABLE TO MAKE NEEDS KNOWN. PT A/O X3. RESPIRATIONS EVEN AND UNLABORED WITH NO S/S OF ACUTE DISTRESS OR SOB NOTED. NO COMPLAINTS OF PAIN AT THIS TIME. PT NOTED WITH RAC #18G PATENT AND INTACT AND SL. PT PENDING DC. SAFETY MEASURES IN PLACE WITH BED IN LOWEST LOCKED POSITION WITH SIDE RAILS UP X2. CALL LIGHT WITHIN REACH. WILL CONTINUE TO MONITOR.
--- NOTE | 2020-03-30 19:28 | NUR ---
MS RN NOTES PATIENT IN BED RESTING. NOTED 100ML OF URINE. ALL DUE MEDICATIONS ADMINISTERED. ALL NEEDS MET. ENDORSED DISCHARGE FOR PM SHIFT.
[2020-03-30 20:10] VITALS: BP 105/63
--- NOTE | 2020-03-30 21:30 | NUR ---
MS RN NOTES ATTEMPTED TO INSERT FC INTO PT PRIOR TO DISCHARGE, PT REFUSED. PT STATED "ILL URINATE WHEN I GET THERE, THIS HURTS." WILL CONTINUE TO MONITOR.
--- NOTE | 2020-03-30 21:45 | NUR ---
MS PIPE LAYER HELPER NOTES PT DC BACK TO FACILITY VIA AMBULANCE IN STABLE CONDITION. PT A/O X3. RESPIRATIONS EVEN AND UNLABORED WITH NO S/S OF ACUTE DISTRESS OR SOB NOTED. NO COMPLAINTS OF PAIN AT THIS TIME. PT RAC #18G REMOVED WELL ID BAND. DISCHARGE INSTRUCTIONS WENT OVER WITH PT AND PT VERBALIZED UNDERSTANDING. PT DC PAPERS GIVEN TO AMBULANCE. PT NOT DC WITH FC PT REFUSED.
== END 2020-03-30 21:40 | DRG 501 ==
LOC: ER 09:32 → MED 13:14
PROVIDERS: ADMIT Student in an Organized Health Care Education/Training Program; ATTEND Student in an Organized Health Care Education/Training Program
DX: N40.1 Benign prostatic hyperplasia with lower urinary tract symptoms (principal); N39.0 Urinary tract infection, site not specified; R31.9 Hematuria, unspecified; R33.8 Other retention of urine; I31.3 Pericardial effusion (noninflammatory); K59.00 Constipation, unspecified; E78.5 Hyperlipidemia, unspecified; I69.354 Hemiplegia and hemiparesis following cerebral infarction affecting left non-dominant side; D68.59 Other primary thrombophilia; I10 Essential (primary) hypertension; Z79.82 Long term (current) use of aspirin; Z79.899 Other long term (current) drug therapy
CPT/HCPCS: 36415; 80048-TC; 80061-TC; 83735-TC; 84100-TC; 84443-TC; 85025-TC; 87081-TC; G0378; J7030

== ENCOUNTER 2020-04-10 09:07 | Inpatient (IN) | payer MEDICAID ==
[~2020-04-10] VITALS: Ht 170.2 cm; Wt 87.5 kg
[~2020-04-10 09:07] MED LIST changes: -ASPI-1152 PO; +ASPI-1420 PO; -BISA-79 PO; -FAMO20TA8 PO; -GABA-534 PO; +GABA600T12 PO; -NAPR-1192 PO; +PANT40TA2 PO
--- NOTE | 2020-04-10 09:20 | NUR ---
BIB ems from home assisted living for hematuria. Resp is even and unlabored with nad noted. Awaiting md for eval.
[2020-04-10] MEDS ORDERED: LIDOCAINE 2% JEL UROJET 10 ML MM ONE (09:35)
[2020-04-10 09:39] LABS: BASOPHILS # (AUTO) 0.1 /CMM (0.0-0.2); BASOPHILS % (AUTO) 0.8 % (0.0-2.0); EOSINOPHILS % (AUTO) 4.2 % (0.0-6.0); HEMATOCRIT 44 % (39-51); HEMOGLOBIN 14.1 g/dL (13.5-17.5); LYMPHOCYTES # (AUTO) 1.7 /CMM (0.8-4.8); LYMPHOCYTES % (AUTO) 21.7 % (20.0-44.0); MEAN CORPUSCULAR HGB CONC 32 g/dl (31.0-36.0); MEAN CORPUSCULAR VOLUME 82 fL (80-96); MONOCYTES # (AUTO) 0.7 /CMM (0.1-1.30); MONOCYTES % (AUTO) 8.8 % (2.0-12.0); NEUTROPHILS # (AUTO) 5.1 /CMM (1.8-8.9); NEUTROPHILS % (AUTO) 64.5 % (43.0-81.0); PLATELET COUNT (AUTO) 212 /CMM (150-450); RED BLOOD CELL COUNT(AUTO) 5.29 MIL/uL (4.5-6.0); WHITE BLOOD COUNT (AUTO) 7.9 K/uL (4.3-11.0)
[2020-04-10 09:51] LABS: CALCIUM, SERUM 9.1 mg/dL (8.5-10.1); CREATININE 0.8 mg/dL (0.6-1.3); POTASSIUM 3.9 mmol/L (3.5-5.1)
[2020-04-10 10:12] LABS: APPEARANCE,URINE Turbid (CLEAR); BILIRUBIN,URINE LARGE (NEGATIVE); BLOOD, URINE Large Ery/uL (NEGATIVE); COLOR,URINE Red (YELLOW); KETONES,URINE 80 (NEGATIVE); LEUKOCYTE ESTERASE ,URINE Large (NEGATIVE); NITRITE, URINE Positive (NEGATIVE); PROTEIN,URINE >=300 mg/dl (NEGATIVE); UGLUCOSE 250 MG/DL mg/dL (NEGATIVE); UROBILINOGEN,URINE >=8.0 EU/dL (0.2)
[2020-04-10 10:14] LABS: PH,URINE >9.0 (5.0-8.0)
--- NOTE | 2020-04-10 10:17 | NUR ---
CALLED OFFICE OF KOMAL ROSE MD
[2020-04-10 10:22] LABS: BACTERIA,URINE Many /HPF (None Seen); RBC,URINE TOO NUMEROUS TO COUN /HPF (0-2); SQUAMOUS EPITHELIAL CELL,UR Few /HPF (None Seen); WBC,URINE TOO NUMEROUS TO COUN /HPF (0-3)
[2020-04-10] MEDS ORDERED: PIPERACILLIN /TAZOBACTAM 3.375 G in IV D5W 50 ML IV ONE (10:30)
--- NOTE | 2020-04-10 11:03 | NUR ---
called Dr. Ascencio's office for admission and awaiting to call back
--- NOTE | 2020-04-10 11:26 | NUR ---
DR MOCK PAGED THRU CELL AND OFFICE
--- NOTE | 2020-04-10 12:15 | NUR ---
COVID SWAB DONE AND SENT TO LAB
--- NOTE | 2020-04-10 15:35 | NUR ---
wheeled patient via gurney accompanied by EMT in no distress. RN at bedside to assume care.
[2020-04-10] MEDS ORDERED: IV NS 0.9% 1,000 ML IV PRN (16:25)
[2020-04-10] MEDS ORDERED: Z GUARD REMEDY 2 OZ OINT TP PRN (16:30)
[2020-04-10] MEDS ORDERED: CEFTRIAXONE 1 G in IV D5W 50 ML IV SCH (17:30)
[2020-04-10] MEDS: ATORVASTATIN 40 MG TABLET PO SCH (17:40)
[2020-04-10] MEDS: GABAPENTIN 300 MG CAPSULE PO SCH ×3 (17:40→21:00)
[2020-04-10] MEDS: APIXABAN 5 MG TABLET PO SCH (17:40)
--- NOTE | 2020-04-10 18:30 | NUR ---
RN Closing note Patient in bed, remains AO x 4, informed MD DVT score 3, but no new order at this time. Skin is warm to touch, keep clean/dry, intact IV site, no fever. Noticed blood in urine, provided castro catheter care, 1,300ml out put. Kept bed in locked in with elevated HOB, for ensure airway and aspiration precaution. Call light within reach, will endorse night nurse.
--- NOTE | 2020-04-10 19:40 | NUR ---
MS RN OPENING NOTES PATIENT RECEIVED RESTING IN BED COMFORTABLY; A/OX3; BREATHING EVEN AND UNLABORED; TOLERATING ROOM AIR WELL; NO SOB NOTED; R AC # 18 INTACT AND PATENT, INFUSING NS @ 75ML/HR; TOLERATING IVF WELL; NO S/S OF REDNESS OR INFILTRATION NOTED; MURRAY CATH IN PLACE, HEMATURIA NOTED; MD AWARE; PATIENT ABLE TO MAKE NEEDS KNOWN; SAFETY PRECAUTIONS IMPLEMENTED; BED LOCKED IN LOW POSITION; SIDE RAILSX2; CALL LIGHT WITHIN REACH; WILL CONT TO MONITOR
[2020-04-10 20:00] VITALS: BP 140/97
--- NOTE | 2020-04-10 20:45 | NUR ---
MS RN NOTES PATIENT COMPLAINING OF ABDOMINAL PAIN AND REQUESTING TYLENOL WITH DUE MEDICATION; VITALS 140/97; PATIENT A/OX3-4; WILL ADMINISTER TYLENOL PER MD ORDER; WILL CONT TO MONITOR
[2020-04-10] MEDS: ACETAMINOPHEN 325 MG TABLET PO PRN (20:54)
[2020-04-10] MEDS: TAMSULOSIN 0.4 MG CAP.SR.24H PO SCH (21:06)
[2020-04-10] MEDS: ONDANSETRON HCL/PF 4 MG/2 ML VIAL IVP PRN (23:26)
--- NOTE | 2020-04-10 23:38 | NUR ---
MS RN NOTES PATIENT MURRAY CLOGGED, CHARGE NURSE AWARE; MURRAY IRRIGATED, CHARGE NURSE AT BEDSIDE DURING IRRIGATION; MD MADE AWARE; DURING IRRIGATION PATIENT COMPLAINT OF NAUSEA; ADMINISTERED ZOFRAN PER MD ORDER; PATIENT ALSO COMPLAINING OF ABDOMINAL PAIN; MD MADE AWARE; AWAITING FOR ORDERS; CHARGE NURSE AWARE; R AC # 18 PULLED OUT ON ACCIDENT; NEW IV LINE OBTAINED; R HAND #20; PATIENT REFUSING IVF; RISKS AND BENEFITS DISCUSSED; PATIENT STILL REFUSING; WILL CONT TO MONITOR
--- NOTE | 2020-04-11 | NUR ---
MS RN NOTES ABDOMINAL DISTENTION NOTED; PER CHARGE NURSE, ULTRASOUND OF BLADDER SHOULD BE DONE; US BLADDER ORDERED; AWAITING RESULTS
--- NOTE | 2020-04-11 01:20 | NUR ---
MS RN NOTES US BLADDER SCAN DONE; 900ML FOUND IN ABDOMEN; CHARGE NURSE AWARE; IRRIGATED MURRAY; PATIENT COMPLAINED OF ABDOMINAL PAIN; MURRAY OUTPUT HEMATURIA STILL NOTED, MORE CLEAR COMPARED TO START OF SHIFT; WILL CONT TO MONITOR
--- NOTE | 2020-04-11 01:39 | NUR ---
MS RN NOTES PATIENT REQUESTING STRONGER PAIN MEDICATION OTHER THAN TYLENOL FOR ABDOMINAL PAIN; MD MADE AWARE; CHARGE NURSE AWARE; PER MD, NOR[place]IES 3/325 Q6HR FOR SEVERE (8-10) PAIN; PER PATIENT; PAIN IS 10/10 IN ABDOMINAL AREA; WILL ADMINISTER PAIN MED PER MD ORDER; WILL CONT TO MONITOR
[2020-04-11] MEDS: HYDROCODONE/APAP 5/325MG TABLET PO PRN ×4 (01:52→20:55)
--- NOTE | 2020-04-11 06:48 | NUR ---
MS RN CLOSING NOTES PATIENT RESTING IN BED COMFORTABLY; A/OX3, BREATHING EVEN AND UNLABORED; NO SOB NOTED; PATIENT TOLERATING ROOM AIR WELL; MURRAY IN PLACE, WITH HEMATURIA NOTED; IRRIGATED MURRAY THROUGHOUT SHIFT, MD AWARE; R HAND #20 INTACT AND PATENT, FLUSHING WELL; PATIENT DOES NOT WANT TO HAVE FLUIDS THROUGHOUT NIGHT D/T PAIN IN ABDOMEN AREA, PATIENT KEEPS MOVING IN BED, PATIENT AWARE OF IMPORTANCE AND WILL AGREE FOR FLUIDS IN AM; WILL INFORM DAY SHIFT; PATIENT ABLE TO MAKE NEEDS KNOWN; ALL NEEDS RENDERED; SAFETY PRECAUTIONS IMPLEMENTED; BED LOCKED IN LOW POSITION; SIDE RAILSX2; CALL LIGHT WITHIN REACH; WILL ENDORSE AMRIK TO ONCOMING SHIFT
--- NOTE | 2020-04-11 07:30 | NUR ---
RN MED/SURG OPENING NOTES Received patient alert and oriented x 3-4. Encouraged and able to make needs known. Respiration is even and easy with no SOB. F/C is intact but with hematuria noted. Awaiting for urine culture/sensitivity and possible recommendations from MD. Will continue to monitor for any changes.
[2020-04-11 08:00] VITALS: BP 124/88
[2020-04-11 08:14] LABS: BASOPHILS % (AUTO) 0.1 % (0.0-2.0); HEMATOCRIT 40 % (39-51); HEMOGLOBIN 12.9 g/dL (13.5-17.5); LYMPHOCYTES # (AUTO) 0.6 /CMM (0.8-4.8); LYMPHOCYTES % (AUTO) 2.8 % (20.0-44.0); MEAN CORPUSCULAR HGB CONC 32 g/dl (31.0-36.0); MEAN CORPUSCULAR VOLUME 82 fL (80-96); MONOCYTES # (AUTO) 0.6 /CMM (0.1-1.30); MONOCYTES % (AUTO) 3.2 % (2.0-12.0); NEUTROPHILS % (AUTO) 93.9 % (43.0-81.0); PLATELET COUNT (AUTO) 317 /CMM (150-450); RED BLOOD CELL COUNT(AUTO) 4.85 MIL/uL (4.5-6.0); WHITE BLOOD COUNT (AUTO) 20.2 K/uL (4.3-11.0)
[2020-04-11 08:37] LABS: ALBUMIN 3.7 g/dL (3.4-5.0); BILIRUBIN,TOTAL 0.3 mg/dL (0.2-1.0); CALCIUM, SERUM 9.1 mg/dL (8.5-10.1); CREATININE 1.1 mg/dL (0.6-1.3); MAGNESIUM 2.2 mg/dL (1.8-2.4); PHOSPHORUS 3.7 mg/dL (2.5-4.9); POTASSIUM 4.2 mmol/L (3.5-5.1); TOTAL PROTEIN, SERUM 7.8 g/dL (6.4-8.2)
[2020-04-11] MEDS: ASPIRIN EC 81 MG TABLET.DR PO SCH ×2 (08:52→09:00)
[2020-04-11] MEDS: PANTOPRAZOLE 40 MG TABLET.DR PO SCH (08:52)
[2020-04-11] MEDS: GABAPENTIN 300 MG CAPSULE PO SCH ×5 (08:53→20:54)
[2020-04-11] MEDS: APIXABAN 5 MG TABLET PO SCH ×2 (09:00→16:26)
[2020-04-11] MEDS: PIPERACILLIN /TAZOBACTAM 3.375 G in IV D5W 100 ML IV SCH ×2 (10:36→17:11)
[2020-04-11] MEDS ORDERED: PIPERACILLIN /TAZOBACTAM 3.375 G in IV D5W 50 ML IV SCH (12:00)
--- NOTE | 2020-04-11 13:00 | NUR ---
INDUSTRIAL ECOLOGIST NOTES Patient remains alert oriented x3-4. Patient refused Gabapentin medication despite of explanation of risk and benefits of not taking it. Respiration is even and easy with no shortness of breath. Able to tolerate current diet. Will continue to monitor.
[2020-04-11 16:00] VITALS: BP 108/78
[2020-04-11] MEDS: ATORVASTATIN 40 MG TABLET PO SCH (17:12)
--- NOTE | 2020-04-11 19:12 | NUR ---
CHIEF CLERK CLOSING NOTES Patient remains alert, oriented x 3-4. Verbally responsive, and able to make needs known. Dr Jade with orders to D/C 16F Castro Catheter and change to 20F, but unavailable at this time. stated OK to use 22F F/C, but when attempted to insert 22F F/C, patient was not able to tolerate it. Inserted new 2 way F/C 16F, and connected to drainage bag. Patient able to tolerate procedure. Central supply staff stated they will send tubing for continous bladder irrigation. Patient was able to tolerate castro catheter change. Respiration is even and easy with no shortness of breath. Kept safe and comfortable at all times.
--- NOTE | 2020-04-11 19:30 | NUR ---
ms rn opening note received patient in bed. a/ox3-4. tolerating room air. respirations are even and unlabored. no s/s sob noted. no c/o pain at this time. in no apparent distress. iv access in right hand #20 patent running zosyn @25ml/hr. castro catheter is present, draining to gravity, urine is hematuria. bed i slow and locked hob elevated in semi fowlers, side rials up x2. call light within reach. will continue to monitor.
[2020-04-11 20:00] VITALS: BP 109/68
[2020-04-11 20:22] VITALS: BP 109/68
[2020-04-11] MEDS: TAMSULOSIN 0.4 MG CAP.SR.24H PO SCH (21:11)
--- NOTE | 2020-04-11 21:15 | NUR ---
ms rn note retrieved a bladder irrigation tubing from ER. hand irrigation with 40ml and connected patient to continuos bladder irrigation with a 16Fr [address] castro. will continue to monitor.
[2020-04-12] MEDS: PIPERACILLIN /TAZOBACTAM 3.375 G in IV D5W 100 ML IV SCH ×3 (01:22→17:08)
--- NOTE | 2020-04-12 06:57 | NUR ---
ms rn closing note patient in bed. a/ox3-4. tolerating room air. no respiratory distress noted. managed pain with norco 5. iv access maintained in right hand #20 running ns@75ml/hr. castro catheter is maintained, continous bladder irrigation, draining to gravity, urine is hematuria, amoutnt in is 4500 out amount 4700. bed remains slow and locked hob elevated in semi fowlers, side rials up x2. call light within reach. will endorse to next shift
[2020-04-12 07:07] LABS: BASOPHILS % (AUTO) 0.1 % (0.0-2.0); HEMATOCRIT 38 % (39-51); HEMOGLOBIN 12.1 g/dL (13.5-17.5); LYMPHOCYTES # (AUTO) 1.6 /CMM (0.8-4.8); MEAN CORPUSCULAR HGB CONC 32 g/dl (31.0-36.0); MEAN CORPUSCULAR VOLUME 83 fL (80-96); MONOCYTES # (AUTO) 2.8 /CMM (0.1-1.30); MONOCYTES % (AUTO) 10.6 % (2.0-12.0); NEUTROPHILS % (AUTO) 83.3 % (43.0-81.0); PLATELET COUNT (AUTO) 294 /CMM (150-450); RED BLOOD CELL COUNT(AUTO) 4.57 MIL/uL (4.5-6.0); WHITE BLOOD COUNT (AUTO) 26.4 K/uL (4.3-11.0)
--- NOTE | 2020-04-12 07:17 | NUR ---
MS RN OPENING NOTES RECEIVED PT AWAKE IN BED IN NO ACUTE SIGNS OF DISTRESS. A/OX3. ABLE TO MAKE NEEDS KNOWN, DENIES PAIN OR ANY DISCOMFORTS AT THIS TIME. ON ROOM AIR, BREATHING EVEN AND UNLABORED. IV ACCESS ON LEFT HAND G#20 INTACT AND PATENT, INFUSING NS @ 75ML/HR, NO S/S OF REDNESS OR INFILTRATION NOTED. MURRAY CATH IN PLACE, REMAINS WITH HEMATURIA, CONTINUOUS BLADDER IRRIGATION IN PROGRESS AND DRAINING VIA GRAVITY. SAFETY PRECAUTIONS IN PLACE; BED LOCKED AND IN IN LOW POSITION, SIDE RAILS X2 AND CALL LIGHT WITHIN REACH. WILL CONT TO MONITOR PT ACCORDINGLY.
[2020-04-12 07:38] LABS: CALCIUM, SERUM 9.4 mg/dL (8.5-10.1); CREATININE 3.1 mg/dL (0.6-1.3); MAGNESIUM 2.4 mg/dL (1.8-2.4); PHOSPHORUS 4.2 mg/dL (2.5-4.9); POTASSIUM 4.7 mmol/L (3.5-5.1)
[2020-04-12 08:00] VITALS: BP 100/64
[2020-04-12] MEDS: GABAPENTIN 300 MG CAPSULE PO SCH ×4 (08:16→21:23)
[2020-04-12] MEDS: PANTOPRAZOLE 40 MG TABLET.DR PO SCH (08:16)
[2020-04-12] MEDS: ASPIRIN EC 81 MG TABLET.DR PO SCH (08:39)
[2020-04-12] MEDS: APIXABAN 5 MG TABLET PO SCH ×2 (08:39→17:00)
--- NOTE | 2020-04-12 11:50 | NUR ---
RN NOTES RECEIVED CALL FROM LAB THAT PT'S HAS HIGH LACTIC ACID 5.3. MICHA DANIEL NOTIFIED WITH ORDER TO INFUSED 1 L OF NS THEN RECHECK LACTIC ACID AFTER. WILL CARRY OUT ORDER AND CONTINUE TO MONITOR PT.
[2020-04-12] MEDS ORDERED: IV NS 0.9% 1,000 ML IV ONE (12:00)
[2020-04-12] MEDS: IV NS 0.9% 1,000 ML IV PRN (15:00)
[2020-04-12 16:00] VITALS: BP 123/80
--- NOTE | 2020-04-12 16:34 | NUR ---
RN NOTES INFORMED DR JOSE OF PT'S US KIDNEYS RESULTS. DR JOSE HE CAME TO UNIT AND SEEN PT WITH ORDER TO REMOVED MURRAY CATHETER AND RE-INSERT NEW ONE. PT REMAINS WITH HEMATURIA AND BLOOD CLOTS. MURRAY CATHETER STILL LEAKING FROM URETHRA/PENIS. CBI CONTINUES. WILL CONTINUE TO MONITOR.
[2020-04-12] MEDS: ATORVASTATIN 40 MG TABLET PO SCH (17:07)
--- NOTE | 2020-04-12 18:50 | NUR ---
MS RN CLOSING NOTES PT IN BED AWAKE AND RESTING @ MODERATE HIGH BACKREST POSITION. A/OX3. ABLE TO MAKE NEEDS KNOWN. ON ROOM AIR, TOLERATING WELL WITH NO SOB NOTED THROUGHOUT THE DAY. IV ACCESS ON LEFT HAND G#20 INTACT AND PATENT, INFUSING ATB SOZYN AT 25ML/HR AT THIS TIME, NO S/S OF REDNESS OR INFILTRATION NOTED. [address] WAY MURRAY CATH IN PLACE, HEMATURIA PERSIST, CONTINUOUS BLADDER IRRIGATION IN PROGRESS AND DRAINING VIA GRAVITY. DR SRINIVASAN ON UNIT AT THIS TIME WITH ORDER TO DO BLADDER SCAN, 999 ML RESIDUALS NOTED AND REPORTED TO HIM. SAFETY PRECAUTIONS IN PLACE; BED LOCKED AND IN IN LOW POSITION, SIDE RAILS X2 AND CALL LIGHT WITHIN REACH. ALL NEEDS AND CARE ATTENDED WELL. WILL ENDORSE TO NIGHT MONITOR NURSE FOR AMRIK. .
[2020-04-12] MEDS ORDERED: IV NS 0.9% 1,000 ML IV PRN (19:00)
--- NOTE | 2020-04-12 19:09 | NUR ---
MS RN NOTES PATIENT IN BED, AWAKE, ALERT AND ORIENTED X 3. BREATHING EVEN AND UNLABORED ON ROOM AIR. SHOWS NO SIGNS OF ACUTE RESPIRATORY DISTRESS, NO ACUTE PAIN. WITH 3 WAY MURRAY FLOWING RED TINGED URINE WITH CONTINUOUS BLADDER IRRIGATION BY GRAVITY. R HAND 20G RUNNING ZOSYN. SHOWS NO SIGNS OF INFILTRATION, NO REDNESS. SAFETY PRECAUTIONS IN PLACE. BED IN LOWEST POSITION, LOCKED, AND CALL LIGHT KEPT WITHIN REACH. WILL CONTINUE TO MONITOR.
[2020-04-12 20:00] VITALS: BP 100/59
[2020-04-12] MEDS: TAMSULOSIN 0.4 MG CAP.SR.24H PO SCH (21:23)
[2020-04-13] VITALS (32 sets, daily range): BP systolic 50–170; BP diastolic 28–117
[2020-04-13 00:50] LABS: URINE SODIUM, RANDOM 153 mmol/l (40-220); URINE TOTAL PROTEIN 93.8 mg/dL (0-11.9)
[2020-04-13 00:55] LABS: APPEARANCE,URINE TURBID (CLEAR); BLOOD, URINE 3+ Ery/uL (NEGATIVE); COLOR,URINE RED (YELLOW); PROTEIN,URINE 1+ mg/dl (NEGATIVE); UGLUCOSE NEGATIVE (NEGATIVE)
[2020-04-13 00:56] LABS: BACTERIA,URINE Few /HPF (None Seen); BILIRUBIN,URINE NEGATIVE (NEGATIVE); KETONES,URINE NEGATIVE (NEGATIVE); LEUKOCYTE ESTERASE ,URINE 1+ (NEGATIVE); NITRITE, URINE NEGATIVE (NEGATIVE); RBC,URINE TOO NUMEROUS TO COUN /HPF (0-2); SQUAMOUS EPITHELIAL CELL,UR Rare /HPF (None Seen); UROBILINOGEN,URINE 0.2 EU/dL (0.2)
[2020-04-13 01:22] LABS: EOSINOPHIL,URINE None Seen
[2020-04-13 01:31] LABS: CREATININE, URINE < 5.0 MG/DL (30.0-125.0)
[2020-04-13] MEDS: PIPERACILLIN /TAZOBACTAM 3.375 G in IV D5W 100 ML IV SCH ×2 (02:18→09:52)
--- NOTE | 2020-04-13 06:38 | NUR ---
MS RN NOTES PATIENT IN BED, ASLEEP, ALERT AND ORIENTED X 3. BREATHING EVEN AND UNLABORED ON ROOM AIR. SHOWS NO SIGNS OF ACUTE RESPIRATORY DISTRESS, NO ACUTE PAIN. WITH 3 WAY MURRAY FLOWING RED TINGED URINE WITH CONTINUOUS BLADDER IRRIGATION BY GRAVITY. R HAND 20G RUNNING NS AT 100ML/HR. SHOWS NO SIGNS OF INFILTRATION, NO REDNESS. ALL DUE MEDICATIONS GIVEN. SAFETY PRECAUTIONS IN PLACE. BED IN LOWEST POSITION, LOCKED, AND CALL LIGHT KEPT WITHIN REACH. WILL ENDORSE TO ONCOMING NURSE.
--- NOTE | 2020-04-13 07:20 | NUR ---
MS RN NOTES RECEIVED PATIENT IN BED, ALERT AND AWAKE ORIENTED X3. HOB ELEVATED. NO SOB. DENIES ANY C/O PAIN NOR DISCOMFORT AT THIS TIME. MURRAY CATH INTACT DRAINING FREELY VIA BED SIDE WITH HEMATURIA, CLOTS AND SEDIMENTS OBSERVED. REMAIN ON CONTINUOUS BLADDER IRRIGATION WITH LEAKING STILL NOTED ON PENILE OPENING. RIGHT HAND # 20 INTACT AND PATENT. BED IN LOWEST POSITION, LOCKED. BED ALARM ON. CALL LIGHT WITHIN REACH.
[2020-04-13] MEDS: APIXABAN 5 MG TABLET PO SCH (08:14)
[2020-04-13] MEDS: PANTOPRAZOLE 40 MG TABLET.DR PO SCH (08:14)
[2020-04-13] MEDS: GABAPENTIN 300 MG CAPSULE PO SCH ×5 (08:14→21:23)
[2020-04-13] MEDS: ASPIRIN EC 81 MG TABLET.DR PO SCH (08:15)
--- NOTE | 2020-04-13 08:15 | NUR ---
MS RN NOTES HELD ELIQUIS AND ASA D/T HEMATURIA.
[2020-04-13 08:24] LABS: HEMATOCRIT 29 % (39-51); HEMOGLOBIN 9.4 g/dL (13.5-17.5); LYMPHOCYTES # (AUTO) 1.1 /CMM (0.8-4.8); LYMPHOCYTES % (AUTO) 4.3 % (20.0-44.0); MEAN CORPUSCULAR HGB CONC 32 g/dl (31.0-36.0); MEAN CORPUSCULAR VOLUME 82 fL (80-96); MONOCYTES # (AUTO) 2.7 /CMM (0.1-1.30); MONOCYTES % (AUTO) 10.8 % (2.0-12.0); NEUTROPHILS % (AUTO) 84.9 % (43.0-81.0); PLATELET COUNT (AUTO) 268 /CMM (150-450); RED BLOOD CELL COUNT(AUTO) 3.55 MIL/uL (4.5-6.0); WHITE BLOOD COUNT (AUTO) 24.7 K/uL (4.3-11.0)
[2020-04-13 08:46] LABS: ALBUMIN 2.3 g/dL (3.4-5.0); BILIRUBIN,TOTAL 0.2 mg/dL (0.2-1.0); CALCIUM, SERUM 7.4 mg/dL (8.5-10.1); CREATININE 5.2 mg/dL (0.6-1.3); MAGNESIUM 1.9 mg/dL (1.8-2.4); PHOSPHORUS 4.3 mg/dL (2.5-4.9); POTASSIUM 3.9 mmol/L (3.5-5.1); TOTAL PROTEIN, SERUM 6.1 g/dL (6.4-8.2)
--- NOTE | 2020-04-13 13:02 | NUR ---
MS NAGEL NOTES NOTED PATIENT WITH CONGESTION AND EPISODE OF EMESIS X1. DR. GUZMAN MADE AWARE WITH ORDER FOR STAT CHEST X-RAY. Addendum: 04/13/20 at 1312 by CAIO WELLS RN [facility]
--- NOTE | 2020-04-13 13:44 | NUR ---
MS RN NOTE INFORMED DR. TAMAYO STILL AWAITING FOR DR. LEIGH AND PATIENT STILL LEAKS AROUND MURRAY CATHETER WITH BLOOD CLOTS PRESENT, DARK RED IN COLOR. PATIENT REMAINS ON CONTINUOUS BLADDER IRRIGATION.
--- NOTE | 2020-04-13 13:48 | NUR ---
MS RN NOTES INFORMED DR. TAMAYO THAT PATIENT'S BP TRENDING DOWN 79/52 WITH ORDER FOR NS 0.9% 1L BOLUS. ADMINISTERED.
[2020-04-13] MEDS ORDERED: IV NS 0.9% 1,000 ML IV ONE (14:00)
--- NOTE | 2020-04-13 14:00 | NUR ---
MS RN NOTES BP TRENDING UP 80/58.
--- NOTE | 2020-04-13 14:30 | NUR ---
MS RN NOTES BP 90/62. PATIENT TRANSFERRED TO ICU, BEDISDE REPORT GIVEN TO NOMAN.
--- NOTE | 2020-04-13 15:00 | NUR ---
RN/ICU RECEIVED PATIENT IN BED. PATIENT ALERT & ORIENTED X3, BUT SPEECH IS UNCLEAR. PATIENT HYPOTENSIVE WITH BLOOD PRESSURE OF 83/33. PATIENT ON 3L OXYGEN VIA NASAL CANNULA, SATURATING WELL AT 97%. PATIENT ON DATA PROCESSING EQUIPMENT REPAIRER, SINUS TACHYCARDIA NOTED. PATIENT RIGHT HAND IV ACCESS INTACT, PATENT, FLUSHED WELL. PATIENT 3-WAY MURRAY CATHETER IN PLACE FOR HEMATURIA, HOWEVER IT IS OCCLUDED. PATIENT SAFETY MAINTAINED. CALL LIGHT WITHIN REACH. WILL CONTINUE TO MONITOR CLOSELY.
--- NOTE | 2020-04-13 15:35 | NUR ---
RN/ICU DR. TAMAYO NOTIFIED REGARDING THIS PATIENT. PATIENT HYPOTENSIVE WITH BLOOD PRESSURE OF 83/33. PER DR. KOTHARI ORDERED, AND PICC LINE ORDER PLACED. DR. WOOD NOTIFIED REGARDING THIS PATIENT. PATIENT 3-WAY MURRAY CATHETER (16 AMHARIC) OCCLUDED. IRRIGATION NOT EFFECTIVE. DR. WOOD TO SEE PATIENT TO REPLACE 3-WAY MURRAY CATHETER.
[2020-04-13] MEDS ORDERED: IV NS 0.9% 500 ML IV ONE (16:00)
[2020-04-13] MEDS: ATORVASTATIN 40 MG TABLET PO SCH (17:38)
[2020-04-13] MEDS: PIPERACILLIN /TAZOBACTAM 2.25 G in IV D5W 50 ML IV SCH ×2 (17:38→20:17)
[2020-04-13] MEDS: IV NS 0.9% 1,000 ML IV PRN (17:48)
[2020-04-13] MEDS: NOREPINEPHRINE 8 MG in IV NS 0.9% 242 ML IV PRN (18:17)
--- NOTE | 2020-04-13 18:48 | NUR ---
RN/ICU PATIENT IN BED. PATIENT ALERT & ORIENTED X3, BUT SPEECH IS UNCLEAR. NO ACUTE DISTRESS NOTED. PATIENT ON 3L OXYGEN VIA NASAL CANNULA, SATURATING WELL AT 98%. PATIENT ON GENERATING PLANT SUPERINTENDENT, SINUS TACHYCARDIA NOTED. PATIENT RIGHT UPPER ARM PICC LINE IN PLACE, INTACT, PATENT, FLUSHED WELL. RIGHT HAND IV ACCESS INTACT, PATENT, FLUSHED WELL. PATIENT 3-WAY MURRAY CATHETER IN PLACE DRAINING TO GRAVITY (20 MONEGASQUE). PATIENT SAFETY MAINTAINED. CALL LIGHT WITHIN REACH. WILL ENDORSE PLAN OF CARE TO ONCOMING NURSE FOR CONTINUITY OF CARE
--- NOTE | 2020-04-13 19:15 | NUR ---
STORE CUSTODIAN NOTE RECEIVED PATIENT IN BED WITH HOB ELEVATED. PATIENT APPEARS DROWSY. BREATHING IS EVEN AND NON-LABORED. ON 02 2L VIA NC, O2 SAT IS 93% AT THIS TIME. ABLE TO MOVE EXTREMITIES WITH LIGHT PAIN STIMULATION. ABLE TO ANSWER YES OR NO QUESTIONS, SPEECH IS UNCLEAR. IV SITES ON RIGHT HAND GAUGE 20 AND RIGHT UPPER ARM PICC LINE ARE CLEAN, DRY, AND PATENT. IV FLUIDS RUNNING AT 100 ML/HR. ON LEVOPHED DRIP RUNNING AT 0.1 MCG/KG/MIN. NOTED PATIENT WITH SINUS TACHYCARDIA, HR IS >120 BPM VIA BEDSIDE MONITOR. PATIENT IS ON MURRAY CATH, URINE IS CLOUDY AND RED IN COLOR. ON MURRAY IRRIGATION S/P PROCEDURE. WILL CONTINUE TO MONITOR.
[2020-04-13] MEDS: TAMSULOSIN 0.4 MG CAP.SR.24H PO SCH (21:23)
[2020-04-14] VITALS (82 sets, daily range): BP systolic 83–132; BP diastolic 38–88
[2020-04-14] MEDS: NOREPINEPHRINE 8 MG in IV NS 0.9% 242 ML IV PRN ×3 (00:03→09:41)
[2020-04-14] MEDS: ACETAMINOPHEN 325 MG TABLET PO PRN (00:57)
--- NOTE | 2020-04-14 01:00 | NUR ---
TOOTH INSPECTOR NOTE PATIENT IS ASLEEP AT THIS TIME. VITALS WNL. STILL ON LEVOPHED @ 0.3 MCG/KG/MIN. FREQUENT VISUAL CHECKS IN PROGRESS. WILL CONTINUE TO MONITOR.
[2020-04-14] MEDS ORDERED: NOREPINEPHRINE 8MG/250ML RTU 250 ML IV ONE (03:49)
[2020-04-14] MEDS: PIPERACILLIN /TAZOBACTAM 2.25 G in IV D5W 50 ML IV SCH (04:34)
[2020-04-14 04:38] LABS: BASOPHILS % (AUTO) 0.1 % (0.0-2.0); HEMATOCRIT 25 % (39-51); HEMOGLOBIN 8.2 g/dL (13.5-17.5); LYMPHOCYTES # (AUTO) 1.7 /CMM (0.8-4.8); LYMPHOCYTES % (AUTO) 7.1 % (20.0-44.0); MEAN CORPUSCULAR HGB CONC 32 g/dl (31.0-36.0); MEAN CORPUSCULAR VOLUME 82 fL (80-96); MONOCYTES # (AUTO) 2.4 /CMM (0.1-1.30); MONOCYTES % (AUTO) 10.1 % (2.0-12.0); NEUTROPHILS # (AUTO) 19.5 /CMM (1.8-8.9); NEUTROPHILS % (AUTO) 82.7 % (43.0-81.0); PLATELET COUNT (AUTO) 300 /CMM (150-450); RED BLOOD CELL COUNT(AUTO) 3.11 MIL/uL (4.5-6.0); WHITE BLOOD COUNT (AUTO) 23.7 K/uL (4.3-11.0)
[2020-04-14] MEDS: IV NS 0.9% 1,000 ML IV PRN ×2 (05:15→15:32)
[2020-04-14 05:17] LABS: CALCIUM, SERUM 8.2 mg/dL (8.5-10.1); CREATININE 4.8 mg/dL (0.6-1.3); PHOSPHORUS 4.4 mg/dL (2.5-4.9); POTASSIUM 3.8 mmol/L (3.5-5.1)
--- NOTE | 2020-04-14 06:40 | NUR ---
STRAWHAT INSPECTOR AND PACKER NOTE PATIENT REMAINED STABLE THROUGHOUT THE NIGHT. NO SIGNIFICANT CHANGES NOTED. KEPT ON CONTINUOUS BLADDER IRRIGATION, OUTPUT STILL RED IN COLOR. ALL DUE MEDS GIVEN ORDERED AND TOLERATED WELL. LEVOPHED DRIP TITRATED PER PROTOCOL. PATIENT IS KEPT CLEAN, DRY, AND COMFORTABLE. NO BM NOTED. WILL ENDORSE TO AM SHIFT RN FOR CONTINUATION OF CARE.
[2020-04-14 08:07] LABS: PTH, INTACT 41 pg/mL (15-65)
[2020-04-14 08:38] LABS: FERRITIN 148 ng/mL (8-388)
[2020-04-14] MEDS: GABAPENTIN 300 MG CAPSULE PO SCH ×4 (08:55→21:17)
[2020-04-14] MEDS: HYDROCORTISONE SOD SUCCINATE 100 MG/2 ML VIAL IV SCH ×3 (08:56→21:17)
[2020-04-14] MEDS: PANTOPRAZOLE 40 MG TABLET.DR PO SCH (08:56)
[2020-04-14 12:47] LABS: IRON, SERUM 12 ug/dl (50-175); TOTAL IRON BINDING CAPACITY 336 ug/dl (250-450)
[2020-04-14] MEDS: PIPERACILLIN /TAZOBACTAM 3.375 G in IV D5W 100 ML IV SCH (15:24)
[2020-04-14] MEDS: ATORVASTATIN 40 MG TABLET PO SCH (17:31)
--- NOTE | 2020-04-14 19:37 | NUR ---
END OF SHIFT NOTE: PT HAD AN UNEVENTFUL SHIFT. LEVOPHED TITRATED OFF AT 1600 PER PROTOCOL. PT NEEDS PILLS CRUSHED IN APPLESAUCE. PER PT HE IS PARALYZED AND NEEDS HELP REPOSITIONING. NO BM THIS SHIFT. CONTINUOUS BLADDER IRRIGATION INFUSING AT 450ML/HR, URINE IS LIGHT DOWD WITH SMALL CLOTS. MURRAY NEEDED TO BE MANUALLY IRRIGATED X1 THIS SHIFT. AFTER RATE WAS INCREASED TO 450ML/HR MURRAY DRAINED WITHOUT DIFFICULTY. AFTER LUNCH PT HAD DIFFICULTY WITH DRINKING WATER. PT STARTED COUGHING AFTER DRINKING SMALL SIPS. ORDER FOR SPEECH THERAPY NOTED. PT INFORMED HE WILL PROBABLY NEED THICKENED LIQUIDS. PRIOR TO LUNCH PT HAD NO COUGHING NOTED AFTER DRINKING. PT CHECKED ON HOURLY AND PRN BY NURSING STAFF.
--- NOTE | 2020-04-14 19:45 | NUR ---
RN OPENING NOTE PT ALERT AND ORIENTED X 3 WITH PERIODS OF FORGETFULNESS. IN SEMI FOLWER'S POSITION ABLE TO MAKE NEEDS KNOWN. WITH CONTINUOUS BLADDER IRRIGATION IN PLACE NOTED TO BE LEAKING AROUND SITE. REMOVED AND REPLACED WITH NEW CATHETER DRAINING PINK TINGED URINE WITH MINIMAL AMOUNTS OF CLOTS. NS RUNNING VIA RIGHT UPPER ARM PICC LINE ORDERED AND WITHOUT COMPLICATIONS NOTED AT SITE. RESPIRATIONS EVEN AND UNLABORED WITH 4L OF O2 VIA NC. ALL NEEDS MET AND ATTENDED TO, CALL LIGHT WITHIN REACH, SAFETY MEASURES IN PLACE AT ALL TIMES, WILL MONITOR PATIENT.
[2020-04-14] MEDS: TAMSULOSIN 0.4 MG CAP.SR.24H PO SCH (21:17)
[2020-04-15] VITALS (23 sets, daily range): BP systolic 86–138; BP diastolic 54–78
[2020-04-15] MEDS: PIPERACILLIN /TAZOBACTAM 3.375 G in IV D5W 100 ML IV SCH ×2 (02:50→15:28)
[2020-04-15] MEDS: HYDROCORTISONE SOD SUCCINATE 100 MG/2 ML VIAL IV SCH ×3 (04:37→21:45)
[2020-04-15 05:18] LABS: CALCIUM, SERUM 8.1 mg/dL (8.5-10.1); CREATININE 2.1 mg/dL (0.6-1.3); MAGNESIUM 2.2 mg/dL (1.8-2.4); PHOSPHORUS 3.5 mg/dL (2.5-4.9); POTASSIUM 3.6 mmol/L (3.5-5.1)
--- NOTE | 2020-04-15 07:29 | NUR ---
RN CLOSING NOTE NO ACUTE CHANGES OBSERVED OVERNIGHT. ALL NEEDS MET AND ATTENDED TO. ONGOING BLADDER IRRIGATION IN PROGRESS, ENDORSED TO MORNING RN FOR CONTINUATION OF CARE.
[2020-04-15 08:25] LABS: BASOPHILS % (AUTO) 0.1 % (0.0-2.0); HEMATOCRIT 22 % (39-51); LYMPHOCYTES # (AUTO) 0.9 /CMM (0.8-4.8); LYMPHOCYTES % (AUTO) 5.4 % (20.0-44.0); MEAN CORPUSCULAR HGB CONC 33 g/dl (31.0-36.0); MEAN CORPUSCULAR VOLUME 82 fL (80-96); MONOCYTES # (AUTO) 1.3 /CMM (0.1-1.30); MONOCYTES % (AUTO) 7.7 % (2.0-12.0); NEUTROPHILS # (AUTO) 14.4 /CMM (1.8-8.9); NEUTROPHILS % (AUTO) 86.8 % (43.0-81.0); PLATELET COUNT (AUTO) 248 /CMM (150-450); RED BLOOD CELL COUNT(AUTO) 2.62 MIL/uL (4.5-6.0); WHITE BLOOD COUNT (AUTO) 16.6 K/uL (4.3-11.0)
[2020-04-15] MEDS: PANTOPRAZOLE 40 MG TABLET.DR PO SCH (08:54)
[2020-04-15] MEDS: GABAPENTIN 300 MG CAPSULE PO SCH ×4 (08:55→21:45)
[2020-04-15] MEDS ORDERED: ACETAMINOPHEN 325 MG TABLET PO PRN (09:30)
[2020-04-15] MEDS ORDERED: ACETAMINOPHEN 325 MG TABLET PO ONE (09:30)
[2020-04-15] MEDS: IV NS 0.9% 1,000 ML IV PRN (12:09)
[2020-04-15] MEDS: ATORVASTATIN 40 MG TABLET PO SCH (17:13)
--- NOTE | 2020-04-15 17:40 | NUR ---
[facility], REPORT GIVEN AT BEDSIDE TO BISHNU NAGEL. CONTINUOUS BLADDER IRRIGATION EXPLAINED TO BISHNU NAGEL. PT SETTLED IN ROOM, TELEMETRY HOOKED UP. PT HAD AN UNEVENTFUL DAY. PT CHANGED TO HONEY THICK LIQUIDS, PT TOLERATES HONEY THICK VERY WELL. 3WAY CATHETER NEEDED TO BE FLUSHED X1 TODAY FOR MEDIUM SIZED CLOT WHICH CLEARED EASILY. PT CHECKED ON HOURLY AND PRN BY NURSING STAFF.
--- NOTE | 2020-04-15 17:45 | NUR ---
TRANSFER FROM ICU NOTES PATIENT IS A/0 X 3 ALERT AND AWAKE VITALS WITHIN NORMAL LIMIT WITH NO SIGNS OF DISTRESS AND NO SOB IN 4L NASAL CANNULA. SR 87. R UA PICC LINE AND IV R HAND #20G NS AT 100 MLS/HR. GOT ORIENTED TO HIS ROOM, SAFETY MEASURES ARE APPLIED BED IS IN LOW POSITION AND LOCKED. SIDE RAILS UP X 2 FOR SAFETY. CALL LIGHT WITHIN REACH. WILL ENDORSE TO THE NEXT CRYSTAL GROWING TECHNICIAN NURSE.
[2020-04-15] MEDS: CEFTRIAXONE 1 G in IV D5W 50 ML IV SCH (19:19)
--- NOTE | 2020-04-15 20:00 | NUR ---
RN NOTES RECEIVED PATIENT IN BED, ALERT AND ORIENTED X3, FORGETFUL, STABLE ON ROOM AIR, NO COMPLAIN OF PAIN, HEMATURIA, ON 3WAY MURRAY IRRIGATION, DRAINING WELL, HONEY THICK LIQUID, PASSED NURSING BEDSIDE SWALLOW TEST, WILL CONTINUE TO MONITOR
[2020-04-15] MEDS: TAMSULOSIN 0.4 MG CAP.SR.24H PO SCH (21:45)
[2020-04-16] VITALS (12 sets, daily range): BP systolic 107–158; BP diastolic 71–107
[2020-04-16] MEDS: IV NS 0.9% 1,000 ML IV PRN ×2 (00:43→13:10)
[2020-04-16] MEDS: HYDROCORTISONE SOD SUCCINATE 100 MG/2 ML VIAL IV SCH ×3 (05:35→22:02)
--- NOTE | 2020-04-16 06:39 | NUR ---
RN NOTES ALERT AND ORIENTED X3, FORGETFUL, ROOM AIR, NO COMPLAIN OF PAIN, ON CONTINUOUS BLADDER IRRIGATION VIA 3WAY MURRAY, URINE OUTPUT IS PINK, MONITOR HGB, TRANSFUSE TO KEEP HGB > 7.0, BMP AND CBC IN AM
[2020-04-16 06:41] LABS: HEMATOCRIT 22 % (39-51); HEMOGLOBIN 7.3 g/dL (13.5-17.5); LYMPHOCYTES # (AUTO) 1.2 /CMM (0.8-4.8); LYMPHOCYTES % (AUTO) 8.3 % (20.0-44.0); MEAN CORPUSCULAR HGB CONC 33 g/dl (31.0-36.0); MEAN CORPUSCULAR VOLUME 83 fL (80-96); MONOCYTES # (AUTO) 1.6 /CMM (0.1-1.30); MONOCYTES % (AUTO) 11.1 % (2.0-12.0); NEUTROPHILS # (AUTO) 11.3 /CMM (1.8-8.9); NEUTROPHILS % (AUTO) 80.6 % (43.0-81.0); PLATELET COUNT (AUTO) 258 /CMM (150-450); RED BLOOD CELL COUNT(AUTO) 2.68 MIL/uL (4.5-6.0)
--- NOTE | 2020-04-16 07:43 | NUR ---
RN NOTES RECEIVED PATIENT IN BED RESTING COMFORTABLY IN MODERATE HIGH BACK REST. ALERT AND ORIENTED X3, FORGETFUL, ROOM AIR, NO SIGNS OF DISTRESS NOTED AT THIS TIME, NOTED WITH PICC LINE ON TO WITH NS RUNNING @100 ML/HR. PATENT AND INTACT, ON CONTINUOUS BLADDER IRRIGATION VIA 3WAY MURRAY, URINE OUTPUT IS PINK, SAFETY MEASURES IN PLACE, BED IN LOWEST LOCKED POSITION WITH SIDE RAILS UP X2. CALL LIGHT WITHIN REACH. WILL CONTINUE TO MONITOR.
[2020-04-16 08:13] LABS: CALCIUM, SERUM 8.5 mg/dL (8.5-10.1); CREATININE 2.2 mg/dL (0.6-1.3); POTASSIUM 3.4 mmol/L (3.5-5.1)
[2020-04-16] MEDS: PANTOPRAZOLE 40 MG TABLET.DR PO SCH (08:29)
[2020-04-16] MEDS: GABAPENTIN 300 MG CAPSULE PO SCH ×4 (08:29→21:51)
[2020-04-16] MEDS ORDERED: POTASSIUM CHLORIDE 10 MEQ TABLET.SA PO ONE (11:00)
[2020-04-16] MEDS: ATORVASTATIN 40 MG TABLET PO SCH (17:04)
[2020-04-16] MEDS: CEFTRIAXONE 1 G in IV D5W 50 ML IV SCH (17:04)
--- NOTE | 2020-04-16 18:50 | NUR ---
RN NOTES PATIENT IN BED RESTING COMFORTABLY IN MODERATE HIGH BACK REST. ALERT AND ORIENTED X3, FORGETFUL, ROOM AIR, NO SIGNS OF DISTRESS NOTED THROUGHOUT THE SHIFT, NOTED WITH PICC LINE ON TO WITH NS RUNNING @100 ML/HR. PATENT AND INTACT, ON CONTINUOUS BLADDER IRRIGATION VIA 3WAY MURRAY, URINE OUTPUT IS PINK, SAFETY MEASURES IN PLACE, BED IN LOWEST LOCKED POSITION WITH SIDE RAILS UP X2. CALL LIGHT WITHIN REACH. WILL ENDORSE TO MATERIALS BRANCH CHIEF NURSE FOR AMRIK.
--- NOTE | 2020-04-16 19:36 | NUR ---
RN OPENING NOTE PT ALERT AND ORIENTED X 3 WITH PERIODS OF FORGETFULNESS. IN SEMI FOLWER'S POSITION ABLE TO MAKE NEEDS KNOWN. PT WITH CONTINUOUS BLADDER IRRIGATION IN PLACE NOTED INTACT. DRAINING LIGHT PINK TINGED URINE WITH MINIMAL AMOUNTS OF CLOTS. NS RUNNING VIA RIGHT UPPER ARM PICC LINE ORDERED AND WITHOUT COMPLICATIONS NOTED AT SITE. RESPIRATIONS EVEN AND UNLABORED. NO SOB. NO RESP DISTRESS. ALL NEEDS MET AND ATTENDED TO, CALL LIGHT WITHIN REACH. PT CURRENTLY WATCHING TV. SAFETY MEASURES IN PLACE AT ALL TIMES, WILL MONITOR PATIENT.
[2020-04-16] MEDS: TAMSULOSIN 0.4 MG CAP.SR.24H PO SCH (21:51)
--- NOTE | 2020-04-16 22:10 | NUR ---
GPS RN NOTES: UPON DOING ROUNDS PT C/ OF CONGESTION, AND ABDOMINAL GERD DISTENTION. VITALS TAKEN WITH BP 158/ 107 HR 135, O2 88- 90%, RESP 20. PT ALSO NOTED BROWN SPUTUM. PAGED TRACK REPAIRER HELPER MD FIGUEROA AND NOTIFIED REGARDING PT CHANGE OF CONDITION. ELEVATED THE HOB AND O2 NASAL CANULA 2 L GIVEN.
--- NOTE | 2020-04-16 23:22 | NUR ---
GPS RN NOTES: BIG 6 DEALER MELINA GAVE N.O. TO HOLD CURRENT IVF, CATAPRES 0.1MG PO PRN Q6 IF SBP > 160, CONTINUE 2 L O2 NASAL CANULA, ALBUTEROL Q6HRS PRN, MOM 30 ML PO DAILY, AND CHEST XRAY TODAY. ORDERED NOTED AND CARRIED OUT. NOTIFIED PT REGARDING NEW ORDER
[2020-04-16] MEDS ORDERED: ALBUTEROL FS 2.5 MG/3 ML VIAL.NEB NEB PRN (23:30)
[2020-04-16] MEDS ORDERED: CLONIDINE HCL 0.1 MG TABLET PO PRN (23:30)
[2020-04-17] MEDS: MAGNESIUM HYDROXIDE 30 ML UDC PO PRN ×2 (00:10→10:44)
--- NOTE | 2020-04-17 00:15 | NUR ---
GPS RN NOTES: CONSTIPATION PT C/O OF FEELING CONSTIPATED. PT REQUESTED MOM. TOLERATED MOM WELL ORDERED. CONTINUE TO MONITOR .
--- NOTE | 2020-04-17 01:01 | NUR ---
MS GABY: UPON DOING ROUNDS PT IN BED ASLEEP. NO S/S OF RESP DISTRESS. BREATHING EVEN AND UNLABORED. O2 AT 93% W/ 2 L O2 NASAL CANULA. CONTINUE TO MONITOR
--- NOTE | 2020-04-17 04:03 | NUR ---
MS NOTES: UPON DOING ROUNDS PT IN BED AWAKE. PT REQUESTED FLUID. FLUIDS PROVIDED. PT TOLERATED WELL. NO S/S OF RESP DISTRESS. BREATHING EVEN AND UNLABORED. NO SOB. NO PAIN AT THIS TIME O2 AT 93%-94% W/ 2 L O2 NASAL CANULA. CONTINUE TO MONITOR
[2020-04-17 04:52] VITALS: BP 129/81
[2020-04-17] MEDS: HYDROCORTISONE SOD SUCCINATE 100 MG/2 ML VIAL IV SCH ×3 (04:56→21:08)
[2020-04-17 06:11] LABS: *SPE A/G RATIO 0.8 (0.7-1.7); *SPE ALBUMIN 2.4 g/dL (2.9-4.4); *SPE ALPHA-1-GLOBULIN 0.4 g/dL (0.0-0.4); *SPE ALPHA-2-GLOBULIN 0.8 g/dL (0.4-1.0); *SPE BETA GLOBULIN 0.8 g/dL (0.7-1.3); *SPE GLOBULIN, TOTAL 2.9 g/dL (2.2-3.9); *SPE M-SPIKE Not Observed g/dL (Not Observed); *SPEGAMMA GLOBULIN 0.9 g/dL (0.4-1.8)
--- NOTE | 2020-04-17 06:34 | NUR ---
RN CLOSING NOTE NO ACUTE CHANGES OBSERVED OVERNIGHT. ALL NEEDS MET AND ATTENDED TO. ONGOING BLADDER IRRIGATION IN PROGRESS, ENDORSED TO MORNING RN FOR CONTINUATION OF CARE. PT ON 2L O2 NASAL CANULA WITH O2 OF 95. NO RESP DISTRESS. BREATHING EVEN. PT WAS ABLE TO HAVE X1 BM. CLEAN PT AND KEPT DRY. CONTINUE TO MONITOR.
[2020-04-17 06:54] LABS: BASOPHILS # (AUTO) 0.1 /CMM (0.0-0.2); BASOPHILS % (AUTO) 0.2 % (0.0-2.0); HEMATOCRIT 33 % (39-51); HEMOGLOBIN 10.7 g/dL (13.5-17.5); MEAN CORPUSCULAR HGB CONC 32 g/dl (31.0-36.0); MEAN CORPUSCULAR VOLUME 83 fL (80-96); MONOCYTES % (AUTO) 9.9 % (2.0-12.0); NEUTROPHILS # (AUTO) 17.3 /CMM (1.8-8.9); NEUTROPHILS % (AUTO) 84.9 % (43.0-81.0); PLATELET COUNT (AUTO) 356 /CMM (150-450); RED BLOOD CELL COUNT(AUTO) 3.95 MIL/uL (4.5-6.0); WHITE BLOOD COUNT (AUTO) 20.4 K/uL (4.3-11.0)
[2020-04-17 07:49] LABS: CALCIUM, SERUM 9.1 mg/dL (8.5-10.1); CREATININE 2.3 mg/dL (0.6-1.3); MAGNESIUM 2.5 mg/dL (1.8-2.4); PHOSPHORUS 4.6 mg/dL (2.5-4.9); POTASSIUM 3.1 mmol/L (3.5-5.1)
--- NOTE | 2020-04-17 08:00 | NUR ---
m/s software applications specialist: initial assessment received pt in bed awake, a/ox3. no c/o pain or any discomfort. still on 3 way castro irrigation at 450ml/hr. on hematuria or blood clots noted. still sounds congested, pt unable to bring up phlegm. on o2 at 2l/min via n/c. instructed to call for assistance. will continue to monitor.
[2020-04-17] MEDS: PANTOPRAZOLE 40 MG TABLET.DR PO SCH (08:35)
[2020-04-17] MEDS: GABAPENTIN 300 MG CAPSULE PO SCH ×4 (08:35→21:08)
[2020-04-17] MEDS ORDERED: POTASSIUM CHLORIDE 10 MEQ TABLET.SA PO ONE (10:00)
--- NOTE | 2020-04-17 10:00 | NUR ---
m/s heavy equipment sales manager: notes still on 3 way castro cath irrigation with no blood clots/hematuria noted. kept comfortable. no distress noted. will continue to monitor.
--- NOTE | 2020-04-17 10:25 | NUR ---
m/s cris: visit seen and examined by piedad aldana ([facility]) with verbal order to stop castro irrigation, give mom and dulcolax suppository. orders read back and carried out. Addendum: 04/17/20 at 1031 by JOHN NESBITT LVN castro irrigation stopped as ordered.
[2020-04-17] MEDS ORDERED: BISACODYL SUPP (10 MG) 10 MG/SUPP.RECT SUPP.RECT RC PRN (10:30)
[2020-04-17] MEDS: DOCUSATE SODIUM 250 MG CAPSULE PO SCH (13:08)
--- NOTE | 2020-04-17 13:50 | NUR ---
m/s blasting gang miner: notes noted with blood clots and hematuria in the castro bag and tubing. cn made aware. piedad ([facility]) notified and made aware with order to re start 3 way castro irrigation. order read back and carried out. re started 3 way castro irrigation as ordered. will continue to monitor.
[2020-04-17] MEDS: SOD FERRIC GLUC 125 MG in IV NS 0.9% 100 ML IV SCH (14:07)
--- NOTE | 2020-04-17 15:00 | NUR ---
m/s clinical study manager: notes [employer] assembly line worker accidently dislodged castro catheter. cn made aware. called central supply, left message and ordered 3 way catheter.
--- NOTE | 2020-04-17 16:00 | NUR ---
m/s leaf stamper: notes inserted 3way castro catheter, lex. well. irrigation resumed. instructed to call for assistance. will continue to monitor.
--- NOTE | 2020-04-17 17:00 | NUR ---
m/s people manager: notes resting comfortable in bed. no distress noted. still on 3 way f/c irrigation, still with hematuria. needs attended. call light within reach.
[2020-04-17] MEDS: ATORVASTATIN 40 MG TABLET PO SCH (17:39)
[2020-04-17] MEDS: CEFTRIAXONE 1 G in IV D5W 50 ML IV SCH (17:47)
[2020-04-17] MEDS: IV NS 0.9% 1,000 ML IV PRN (18:36)
--- NOTE | 2020-04-17 19:10 | NUR ---
m/s malthouse laborer: notes report given to zhang (rn) for continuity of care.
--- NOTE | 2020-04-17 19:30 | NUR ---
MS/RN OPENING NOTES RECEIVED PATIENT RESTING IN BED. PATIENT IS ALERT AND ORIENTED X 3. PATIENT IS ON 2 L OF OXYGEN VIA N/C TOLERATING WELL 94%. NO SIGNS OF SOB OR RESPIRATORY DISTRESS NOTED. BREATHING IS EVEN AND UNLABORED, MILD COUGH PRESENT, NO PHLEGM. PATIENT STATES NO PAIN AT THIS TIME. PATIENT HAS 3 WAY MURRAY IRRIGATION RUNNING, DRAIN HEMATURIA/YELLOW COLOR URINE. PATIENT HAS TO PICC IN PLACE RUNNING NS @ 50 ML/HR. SAFETY MEASURES ARE IN PLACE, BED IS LOCKED AND PLACED IN THE LOWEST POSITION. CALL LIGHT IS WITHIN REACH. WILL CONTINUE TO MONITOR THROUGH OUT SHIFT.
[2020-04-17 20:00] VITALS: BP 125/83
[2020-04-17] MEDS: TAMSULOSIN 0.4 MG CAP.SR.24H PO SCH (21:08)
[2020-04-18] MEDS: HYDROCORTISONE SOD SUCCINATE 100 MG/2 ML VIAL IV SCH ×2 (05:10→12:12)
--- NOTE | 2020-04-18 06:45 | NUR ---
MS/RN CLOSING NOTES PATIENT RESTING IN BED WATCHING TV. PATIENT IS ALERT AND ORIENTED X 3. PATIENT IS ON 2 L OF OXYGEN VIA N/C TOLERATING WELL 95%. NO SIGNS OF SOB OR RESPIRATORY DISTRESS NOTED. BREATHING IS EVEN AND UNLABORED. PATIENT STATES NO PAIN AT THIS TIME. PATIENT HAS 3 WAY MURRAY IRRIGATION RUNNING, DRAIN HEMATURIA/YELLOW COLOR URINE. PATIENT HAS TO PICC IN PLACE RUNNING NS @ 50 ML/HR. ALL OF PATIENTS NEEDS HAVE BEEN MET DURING SHIFT. SAFETY MEASURES ARE IN PLACE, BED IS LOCKED AND PLACED IN THE LOWEST POSITION. CALL LIGHT IS WITHIN REACH. WILL ENDORSE CARE TO DAY SHIFT.
[2020-04-18 06:48] LABS: EOSINOPHILS % (AUTO) 0.2 % (0.0-6.0); HEMATOCRIT 30 % (39-51); HEMOGLOBIN 9.6 g/dL (13.5-17.5); LYMPHOCYTES # (AUTO) 1.3 /CMM (0.8-4.8); LYMPHOCYTES % (AUTO) 9.4 % (20.0-44.0); MEAN CORPUSCULAR HGB CONC 33 g/dl (31.0-36.0); MEAN CORPUSCULAR VOLUME 83 fL (80-96); MONOCYTES # (AUTO) 1.5 /CMM (0.1-1.30); MONOCYTES % (AUTO) 10.9 % (2.0-12.0); NEUTROPHILS % (AUTO) 79.5 % (43.0-81.0); PLATELET COUNT (AUTO) 339 /CMM (150-450); RED BLOOD CELL COUNT(AUTO) 3.55 MIL/uL (4.5-6.0); WHITE BLOOD COUNT (AUTO) 13.8 K/uL (4.3-11.0)
[2020-04-18 07:27] LABS: BILIRUBIN,TOTAL 0.3 mg/dL (0.2-1.0); CALCIUM, SERUM 8.6 mg/dL (8.5-10.1); CREATININE 1.2 mg/dL (0.6-1.3); MAGNESIUM 1.9 mg/dL (1.8-2.4); PHOSPHORUS 2.8 mg/dL (2.5-4.9); TOTAL PROTEIN, SERUM 6.2 g/dL (6.4-8.2)
--- NOTE | 2020-04-18 07:40 | NUR ---
MS RN OPENING NOTE PATIENT IN BED RESTING COMFORTABLY. PATIENT IN NO ACUTE DISTRESS. NO SOB NOTED. PATIENT BREATHING IS EVEN AND UNLABORED. PATIENT WITH MURRAY CATHETER HANGING TO GRAVITY, DRAINING CLEAR YELLOW URINE. PATIENT BED ALARM IS ON. PATIENT SAFETY PRECAUTIONS IN PLACE. PATIENT BED IS LOCKED AND IN LOWEST POSITION. CALL LIGHT WITHIN REACH. WILL CONTINUE TO MONITOR.
[2020-04-18 08:00] VITALS: BP 131/84
[2020-04-18] MEDS: PANTOPRAZOLE 40 MG TABLET.DR PO SCH (08:15)
[2020-04-18] MEDS: DOCUSATE SODIUM 250 MG CAPSULE PO SCH (08:15)
[2020-04-18] MEDS: GABAPENTIN 300 MG CAPSULE PO SCH ×4 (08:15→21:39)
[2020-04-18 08:32] LABS: POTASSIUM 2.8 mmol/L (3.5-5.1)
[2020-04-18 08:33] LABS: LYMPHOCYTES % (MANUAL) 9 % (16-48); MONOCYTES % (MANUAL) 4 % (0-11.0); MYELOCYTES % 1 % (0-0); NEUTROPHILS % (MANUAL) 86 (42-76)
--- NOTE | 2020-04-18 08:40 | NUR ---
MS RN NOTE NOTIFIED HEATHER TAY OF POTASSIUM 2.8. PER HEATHER ACKNOWLEDGED AND MADE AWARE.
[2020-04-18] MEDS: POTASSIUM CHLORIDE 20 MEQ TAB.PRT.SR PO SCH ×2 (09:28→10:53)
--- NOTE | 2020-04-18 10:51 | NUR ---
MS RN NOTE SPOKE WITH HEATHER TAY NP REGARDING IF PATIENT IS TO BE CONTINUED ON FLUID IRRIGATION. INFORMED HER NO HEMATURIA NOTED, PATIENT TO BE DISCONTINUED OFF OF FLUID IRRIGATION PER HEATHER.
[2020-04-18] MEDS: LACTULOSE 10 G/15 ML UDC (PYXIS) PO SCH ×2 (12:12→17:31)
[2020-04-18] MEDS: SORBITOL SOLUTION 30 ML PO SCH (12:17)
[2020-04-18] MEDS: ALBUTEROL HALF STRENGTH 1.25 MG/3 ML VIAL.NEB NEB SCH ×4 (12:28→23:19)
[2020-04-18] MEDS: IPRATROPIUM NEB FS 0.5 MG/2.5 ML AMPUL.NEB NEB SCH ×4 (12:28→23:19)
[2020-04-18] MEDS: SOD FERRIC GLUC 125 MG in IV NS 0.9% 100 ML IV SCH (14:52)
[2020-04-18] MEDS: HYDROCODONE/APAP 5/325MG TABLET PO PRN (15:08)
[2020-04-18 16:00] VITALS: BP 97/60
[2020-04-18] MEDS: CEFTRIAXONE 1 G in IV D5W 50 ML IV SCH (17:31)
[2020-04-18] MEDS: ATORVASTATIN 40 MG TABLET PO SCH (17:31)
[2020-04-18 17:52] VITALS: BP 114/68
--- NOTE | 2020-04-18 18:40 | NUR ---
MS RN CLOSING NOTE PATIENT IN BED RESTING COMFORTABLY. PATIENT IN NO ACUTE DISTRESS. NO SOB NOTED. PATIENT BREATHING IS EVEN AND UNLABORED. PATIENT WITH MURRAY CATHETER HANGING TO GRAVITY, DRAINING CLOUDY YELLOW URINE. NO HEMATURIA NOTED. PATIENT KEPT CLEAN, DRY, AND COMFORTABLE THROUGHOUT SHIFT. PATIENT BED ALARM IS ON. NEEDS AND CONCERNS ADDRESSED. TURNED AND REPOSITIONED Q2H. PATIENT SAFETY PRECAUTIONS IN PLACE. PATIENT BED IS LOCKED AND IN LOWEST POSITION. CALL LIGHT WITHIN REACH. WILL ENDORSE CARE TO PM SHIFT FOR AMRIK.
--- NOTE | 2020-04-18 19:30 | NUR ---
MS/RN OPENING NOTES RECEIVED PATIENT RESTING IN BED. PATIENT IS ALERT AND ORIENTED X 3. PATIENT IS ON 2 L OF OXYGEN VIA N/C TOLERATING WELL 93%. NO SIGNS OF SOB OR RESPIRATORY DISTRESS NOTED. BREATHING IS EVEN AND UNLABORED. PATIENT STATES NO PAIN AT THIS TIME. PATIENT HAS [address] IN [address]. PATIENT HAS TO PICC IN PLACE. SAFETY MEASURES ARE IN PLACE, BED IS LOCKED AND PLACED IN THE LOWEST POSITION. CALL LIGHT IS WITHIN REACH. WILL CONTINUE TO MONITOR THROUGH OUT SHIFT.
[2020-04-18 20:00] VITALS: BP 100/63
[2020-04-18] MEDS: TAMSULOSIN 0.4 MG CAP.SR.24H PO SCH (21:38)
[2020-04-19] MEDS: LACTULOSE 10 G/15 ML UDC (PYXIS) PO SCH ×2 (00:11→05:39)
[2020-04-19] MEDS: ALBUTEROL HALF STRENGTH 1.25 MG/3 ML VIAL.NEB NEB SCH ×6 (03:36→22:32)
[2020-04-19] MEDS: IPRATROPIUM NEB FS 0.5 MG/2.5 ML AMPUL.NEB NEB SCH ×6 (03:36→22:32)
--- NOTE | 2020-04-19 06:45 | NUR ---
MS/RN CLOSING NOTES PATIENT RESTING IN BED. PATIENT IS ALERT AND ORIENTED X 3. PATIENT IS ON 2 L OF OXYGEN VIA N/C TOLERATING WELL 94%. NO SIGNS OF SOB OR RESPIRATORY DISTRESS NOTED. BREATHING IS EVEN AND UNLABORED. PATIENT STATES NO PAIN AT THIS TIME. PATIENT HAS [address] MURRAY IN PLACE OUTPUT 1200CC. PATIENT HAS TO PICC IN PLACE. ALL PATIENTS NEEDS HAVE BEEN MET DURING SHIFT. SAFETY MEASURES ARE IN PLACE, BED IS LOCKED AND PLACED IN THE LOWEST POSITION. CALL LIGHT IS WITHIN REACH. WILL ENDORSE CARE TO DAY SHIFT.
[2020-04-19 06:55] LABS: BASOPHILS % (AUTO) 0.1 % (0.0-2.0); EOSINOPHILS % (AUTO) 0.1 % (0.0-6.0); HEMATOCRIT 27 % (39-51); HEMOGLOBIN 8.8 g/dL (13.5-17.5); LYMPHOCYTES # (AUTO) 1.3 /CMM (0.8-4.8); LYMPHOCYTES % (AUTO) 9.5 % (20.0-44.0); MEAN CORPUSCULAR HGB CONC 33 g/dl (31.0-36.0); MEAN CORPUSCULAR VOLUME 82 fL (80-96); MONOCYTES # (AUTO) 1.4 /CMM (0.1-1.30); MONOCYTES % (AUTO) 9.9 % (2.0-12.0); NEUTROPHILS # (AUTO) 11.2 /CMM (1.8-8.9); NEUTROPHILS % (AUTO) 80.4 % (43.0-81.0); PLATELET COUNT (AUTO) 296 /CMM (150-450); RED BLOOD CELL COUNT(AUTO) 3.25 MIL/uL (4.5-6.0); WHITE BLOOD COUNT (AUTO) 13.9 K/uL (4.3-11.0)
[2020-04-19 07:06] LABS: ALBUMIN 1.9 g/dL (3.4-5.0); BILIRUBIN,TOTAL 0.3 mg/dL (0.2-1.0); CALCIUM, SERUM 8.4 mg/dL (8.5-10.1); CREATININE 1.2 mg/dL (0.6-1.3); MAGNESIUM 1.8 mg/dL (1.8-2.4); PHOSPHORUS 2.5 mg/dL (2.5-4.9); TOTAL PROTEIN, SERUM 5.9 g/dL (6.4-8.2)
[2020-04-19 07:25] LABS: POTASSIUM 2.7 mmol/L (3.5-5.1)
--- NOTE | 2020-04-19 07:30 | NUR ---
MS RN OPENING NOTES PATIENT IS AWAKE A/O X 3 WITH NO SIGNS OF DISTRESS AND NO SOB ON 2L OF NASAL CANNULA. IV R HAND SL AND R UA PICC LINE SL. MURRAY CATHETER INTACT WITH ROSE MARIE COLOR URINE. NO COMPLAIN OF PAIN AT THIS TIME. SAFETY MEASURES ARE APPLIED BED IS IN LOW POSITION, LOCKED, SIDE RAILS X 2 UP FOR SAFETY. CALL LIGHT WITHIN REACH. WILL CONTINUE TO MONITOR.
--- NOTE | 2020-04-19 07:34 | NUR ---
INFORMED DR. TAY ABOUT THE POTASSIUM CRITICAL VALUE.
--- NOTE | 2020-04-19 07:54 | NUR ---
PT REFUSED RESP TX ATT. NO S/S OF SOB NOTED. BENEFITS AND CONTRAINDICATIONS EXPLAINED. WILL CONT TO MONITOR Addendum: 04/19/20 at 0754 by FILIPPO GARCIA RT Amended: Links added.
[2020-04-19 08:00] VITALS: BP 107/66
[2020-04-19] MEDS: POTASSIUM CHLORIDE 20 MEQ TAB.PRT.SR PO SCH ×2 (08:44→10:38)
[2020-04-19] MEDS: DOCUSATE SODIUM 250 MG CAPSULE PO SCH (08:44)
[2020-04-19] MEDS: SORBITOL SOLUTION 30 ML PO SCH (08:44)
[2020-04-19] MEDS: GABAPENTIN 300 MG CAPSULE PO SCH ×5 (08:44→21:00)
[2020-04-19] MEDS: PANTOPRAZOLE 40 MG TABLET.DR PO SCH (08:44)
--- NOTE | 2020-04-19 14:33 | NUR ---
PT REFUSED RESP TX ATT. NO S/S OF SOB NOTED. BENEFITS AND CONTRAINDICATIONS EXPLAINED. WILL CONT TO MONITOR Addendum: 04/19/20 at 1434 by FILIPPO GARCIA RT Amended: Links added.
[2020-04-19] MEDS: SOD FERRIC GLUC 125 MG in IV NS 0.9% 100 ML IV SCH (14:36)
[2020-04-19] MEDS: Z GUARD REMEDY 2 OZ OINT TP SCH (14:36)
--- NOTE | 2020-04-19 15:00 | NUR ---
PATIENT REFUSED MEDICATION AFTER EXPLAINING THE RISKS OF NOT TAKING THE MEDICATION, HE STILL REFUSED TO TAKE IT. WILL CONTINUE TO MONITOR.
[2020-04-19 16:00] VITALS: BP 119/77
[2020-04-19] MEDS: ATORVASTATIN 40 MG TABLET PO SCH (18:00)
--- NOTE | 2020-04-19 18:00 | NUR ---
PATIENT REFUSED MEDICATION AFTER EXPLAINING THE RISKS OF NOT TAKING THE MEDICATION, HE STILL REFUSED TO TAKE IT. WILL CONTINUE TO MONITOR.
[2020-04-19] MEDS: CEFTRIAXONE 1 G in IV D5W 50 ML IV SCH (18:25)
--- NOTE | 2020-04-19 19:15 | NUR ---
MS RN CLOSING NOTES PATIENT IS AWAKE A/O X 3 WITH NO SIGNS OF DISTRESS AND NO SOB ON 2L OF NASAL CANNULA. IV R HAND SL AND R UA PICC LINE SL. MURRAY CATHETER INTACT WITH ROSE MARIE COLOR URINE. NO COMPLAIN OF PAIN AT THIS TIME. PATIENT REMAINED STABLE THROUGH OUT SHIFT. PATIENT KEPT CLEAN AND DRY. ALL NEEDS, CARE, TREATMENT AND MEDICATIONS ADMINISTERED ANTICIPATED PER ORDER. SAFETY MEASURES ARE APPLIED BED IS IN LOW POSITION, LOCKED, SIDE RAILS X 2 UP FOR SAFETY. CALL LIGHT WITHIN REACH. WILL ENDORSE TO THE NEXT PHYSICIST SOLID EARTH.
[2020-04-19 20:00] VITALS: BP 107/72
--- NOTE | 2020-04-19 20:02 | NUR ---
MS/RN OPENING NOTES RECEIVED PATIENT IN BED, AWAKE, ALERT X3,ABLE TO VERBALIZE NEEDS, ON ROOM AIR, RESPIRATIONS EVEN AND UNLABORED, BED LOCKED, CALL LIGHTS WITHIN REACH. PATIENT ALERT, ORIENTED X3, REPORTED REFUSED AM MEDS WAS MADE AWARE REGARDING IMPORTANCE OF TAKING MEDICATION, ON BREATHING TX FOR ANY SOB AND WITH MURRAY DRAINING ROSE MARIE COLORED URINE, REQUIRE REPOSITIONING FOR SACRAL REDNESS, ON CARDIAC DIET, FEEDER, WITH TO PICC LINE HEP LOCK, TO MONITOR,
[2020-04-19] MEDS: TAMSULOSIN 0.4 MG CAP.SR.24H PO SCH (21:04)
[2020-04-19] MEDS: ONDANSETRON HCL/PF 4 MG/2 ML VIAL IVP PRN (22:27)
--- NOTE | 2020-04-19 22:42 | NUR ---
MS/RN NOTES MD WHIPPER ANDONIAN MADE AWARE REGARDING PATIENT COFFEE GROUND EMESIS, DISTENDED ABDOMEN HARBOUND AND MURRAY DRAINING BLOOD COLOR URINE WITH URINE. MD ORDER FOR CULTURE OG GASTRIC FLUID EMESIS AND STAT ORDER KUB. TO FOLLOW UP.
--- NOTE | 2020-04-20 00:27 | NUR ---
MS/RN NOTES RECEIVED MD ORDER FOR RESULT OF KUB WITH SIGNIFICANT DILATION OF STOMACH, SMALL BOWEL / RIGHT COLON PARTIAL OBSTRUCTION, RECOMMEND CT ABDOMEN, THE LAST CT WAS DATED 03/27. MD ORDER FOR CT ABDOMEN IN AM AND NPO AT THIS TIME.
[2020-04-20 01:53] VITALS: BP 125/69
[2020-04-20] MEDS: ALBUTEROL HALF STRENGTH 1.25 MG/3 ML VIAL.NEB NEB SCH ×6 (02:28→23:35)
[2020-04-20] MEDS: IPRATROPIUM NEB FS 0.5 MG/2.5 ML AMPUL.NEB NEB SCH ×6 (02:28→23:35)
[2020-04-20] MEDS: ONDANSETRON HCL/PF 4 MG/2 ML VIAL IVP PRN (04:55)
--- NOTE | 2020-04-20 05:07 | NUR ---
MS/RN NOTES PATIENT VOMITING AND UPSET STOMACH. NEEDED ZOFRAN GIVEN IVP. MONITORED FOR RELIEF.
[2020-04-20 06:48] LABS: BASOPHILS % (AUTO) 0.1 % (0.0-2.0); EOSINOPHILS % (AUTO) 0.4 % (0.0-6.0); HEMATOCRIT 32 % (39-51); HEMOGLOBIN 10.4 g/dL (13.5-17.5); LYMPHOCYTES # (AUTO) 1.5 /CMM (0.8-4.8); LYMPHOCYTES % (AUTO) 8.5 % (20.0-44.0); MEAN CORPUSCULAR HGB CONC 32 g/dl (31.0-36.0); MEAN CORPUSCULAR VOLUME 81 fL (80-96); NEUTROPHILS # (AUTO) 14.7 /CMM (1.8-8.9); PLATELET COUNT (AUTO) 395 /CMM (150-450); RED BLOOD CELL COUNT(AUTO) 3.94 MIL/uL (4.5-6.0); WHITE BLOOD COUNT (AUTO) 17.2 K/uL (4.3-11.0)
--- NOTE | 2020-04-20 07:12 | NUR ---
326-1 MS/RN NOTES PATIENT ABLE TO SLEEP DURING THE NIGHT, RESPIRATIONS EVEN AND UNLABORED, MONITORED FOR ANY CHANGES, REPORTED TO MD REGARDING VOMITTING WITH COLOE COFFEE GROUNF, ABDOMINAL DISTENTION HARD BOUND AND RED COLORED URINE IN MURRAY. PROCEDURE TEST FOR CT OF ABDOMEN. WILL MONITOR. BED LOCKED, CALL LIGHTS WITHIN REACH. IV PICC LINE ON TO.
[2020-04-20 07:14] LABS: BILIRUBIN,TOTAL 0.2 mg/dL (0.2-1.0); CALCIUM, SERUM 8.8 mg/dL (8.5-10.1); CREATININE 0.8 mg/dL (0.6-1.3); MAGNESIUM 1.7 mg/dL (1.8-2.4); PHOSPHORUS 2.5 mg/dL (2.5-4.9); POTASSIUM 2.9 mmol/L (3.5-5.1); TOTAL PROTEIN, SERUM 6.6 g/dL (6.4-8.2)
[2020-04-20] MEDS: PANTOPRAZOLE 40 MG TABLET.DR PO SCH (07:30)
--- NOTE | 2020-04-20 07:40 | NUR ---
RT PT REF BREATHING TX AT THE MOMENT. NO RESP DISTRESS OR SOB NOTED.
[2020-04-20 08:00] VITALS: BP 129/79
--- NOTE | 2020-04-20 08:00 | NUR ---
MS RN OPENING NOTES Received Patient resting in bed. A/O x 2-3 with episodes of confusion. VS stable with no acute distress. Breathing even and unlabored on 3LPM via NC with no respiratory distress. Denies pain. No signs and symptoms of pain. TO PICC Line intact, patent and flushing well. 20g PIV on right hand intact, patent and flushing well. Safety precautions in place. Bed locked and set to lowest position with side rails x 2 up. All needs rendered at this time. Call light within reach. Will continue to monitor.
[2020-04-20] MEDS: Z GUARD REMEDY 2 OZ OINT TP SCH (08:28)
[2020-04-20] MEDS: DOCUSATE SODIUM 250 MG CAPSULE PO SCH (08:28)
[2020-04-20] MEDS: GABAPENTIN 300 MG CAPSULE PO SCH ×4 (08:28→20:43)
[2020-04-20] MEDS ORDERED: IOHEXOL 50 ML IV ONE (10:00)
--- NOTE | 2020-04-20 10:50 | NUR ---
MS RN NOTES Inserted NG tube on left nares. Patient tolerated well. Noted 1400cc coffee ground output. Maggie MUSE aware.
[2020-04-20] MEDS ORDERED: Magnesium 1GM/D5W 100ML PREMIX 100 ML IV SCH (10:53)
[2020-04-20] MEDS: Magnesium 1GM/D5W 100ML PREMIX 100 ML IV SCH ×2 (11:19→12:49)
--- NOTE | 2020-04-20 11:20 | NUR ---
MS RN NOTES Patient pulled out NG-Tube. Maggie STAFF TOXICOLOGIST aware. Will reinsert again. STAFF TOXICOLOGIST ordered bilateral soft wrist restraints. Order noted and carried out.
[2020-04-20 11:44] LABS: EOSINOPHILS % (AUTO) 0.1 % (0.0-6.0); HEMATOCRIT 33 % (39-51); HEMOGLOBIN 10.5 g/dL (13.5-17.5); LYMPHOCYTES # (AUTO) 0.9 /CMM (0.8-4.8); LYMPHOCYTES % (AUTO) 3.3 % (20.0-44.0); MEAN CORPUSCULAR HGB CONC 32 g/dl (31.0-36.0); MEAN CORPUSCULAR VOLUME 84 fL (80-96); MONOCYTES % (AUTO) 3.6 % (2.0-12.0); NEUTROPHILS # (AUTO) 25.1 /CMM (1.8-8.9); PLATELET COUNT (AUTO) 398 /CMM (150-450); RED BLOOD CELL COUNT(AUTO) 3.93 MIL/uL (4.5-6.0)
[2020-04-20 11:58] LABS: BILIRUBIN,TOTAL 0.3 mg/dL (0.2-1.0); CALCIUM, SERUM 8.6 mg/dL (8.5-10.1); CREATININE 0.8 mg/dL (0.6-1.3); TOTAL PROTEIN, SERUM 6.5 g/dL (6.4-8.2)
[2020-04-20] MEDS: POTASSIUM CL. PREMIX PERIPHER. 50 ML IV SCH ×6 (12:18→20:47)
[2020-04-20] MEDS: SOD FERRIC GLUC 125 MG in IV NS 0.9% 100 ML IV SCH (15:18)
[2020-04-20 16:00] VITALS: BP 111/64
[2020-04-20] MEDS ORDERED: IOHEXOL-300 100 ML VIAL IV ONE (16:07)
[2020-04-20] MEDS ORDERED: IV NS 0.9% 250 ML IV ONE (16:08)
[2020-04-20] MEDS ORDERED: CT SWABBABLE VALVE TRANS SET 1 EA INFUS.SET MC ONE (16:08)
--- NOTE | 2020-04-20 17:10 | NUR ---
MS RN NOTES Reinserted NG-Tube on left nares at this time. Patient tolerated well.
--- NOTE | 2020-04-20 17:30 | NUR ---
MS RN NOTES Patient pulled out NG tube at this time. Notified Maggie MUSE. Per POKE IN, need to reinsert again d/t risk for aspiration.
[2020-04-20] MEDS: CEFTRIAXONE 1 G in IV D5W 50 ML IV SCH (17:56)
[2020-04-20] MEDS: ATORVASTATIN 40 MG TABLET PO SCH (17:56)
--- NOTE | 2020-04-20 19:38 | NUR ---
XRAY CONTACTED 19:30 HRS SPOKE WITH NURSE (ERASMO) REGARDING SMALL BOWEL EXAM. NURSE (ERASMO) STATED THAT THE PT'S NGT TUBE IS COILED, TO POSTPONE EXAM UNTIL AM TOMORROW 08:00 HRS.
--- NOTE | 2020-04-20 19:53 | NUR ---
MS RN CLOSING NOTES Patient resting in bed. A/O x 2-3 with episodes of confusion. VS stable with no acute distress. Breathing even and unlabored on 3LPM via NC with no respiratory distress. Denies pain. No signs and symptoms of pain. TO PICC Line intact, patent and flushing well. 20g PIV on right hand intact, patent and flushing well. Safety precautions in place. Bilateral soft wrist restraints in place with clean, warm skin noted. Bed locked and set to lowest position with side rails x 2 up. All needs rendered at this time. Call light within reach. Will endorse to oncoming shift.
[2020-04-20 20:00] VITALS: BP 105/65
--- NOTE | 2020-04-20 20:00 | NUR ---
MS/RN OPENING NOTES RECEIVED PATIENT IN BED, AWAKE ALERT, ON OXYGEN VIA NASAL CANULA AT 3 LITER, PATIENT WITH BUE AND WITH STRONG SUPERVISOR FINISHING ROOM, PULLING OUT NG TUBING TWICE AND HAD 1900 ML EMESIS OF DARK COFFEE GROUND EMESIS EMPTIED IN AM SHIFT. MD DINH MADE AWARE THAT NGT IS NOT INSERTED AT THIS TIME AND SMALL BOWEL FOLLOW THROUGH WAS NOT DONE YET UNTIL NGT IS INSERTED, MD DINH MADE AWARE FOLLOW UP TO MAKE SURE NGT WILL BE INSERTED FOR THE PROCEDURE AND WILL FOLOW UP. PATIENT HAD BREATHING TREATMENT AND POTASSIUM IS INFUSING.
[2020-04-20] MEDS: TAMSULOSIN 0.4 MG CAP.SR.24H PO SCH (21:46)
--- NOTE | 2020-04-20 22:15 | NUR ---
NGT INSERTION WAS DONE BY MD DINH WITH ORDER FOR KUB STAT ORDER.ORDERED CARRIED OUT,
--- NOTE | 2020-04-20 22:30 | NUR ---
PATIENT REFUSAL AND MORE AGITATED WITH NGT TUBE, REFUSAL OF RESTRAINTS GETTING MORE AGITATED, AND UNABLE TO COMPLY AND KEEP NGT AND PULLED OUT EVEN AFTER FREQUENT REMINDER AND MONITORING.
--- NOTE | 2020-04-20 22:45 | NUR ---
MS/RN NOTES PATIENT NGT WAS PLACED BY MD DINH, AND REPORTED FEELING COMFORTABLE AFTER INSERTION, WITH ORDER FOR KUB TO CHECK PLACEMENT, BUT PATIENT WAS REMOVE THE NGT TUBE UNABLE TO WAIT UNTIL SMALL BOWEL FOLLOW THROUGH IN AM, MD DINH CONTACTED AWAITING FOR CALL BACK, PATIENT REPORTED FEELING UNCOMFORTABLE AND MADE AWARE THE IMPORTANCE, VERBALIZE UNDERSTANDING, PROVIDED PROS AND CONS,BUT STILL WANTED TO HAVE INSERTION BE DONE IN AM. TO FOLLOW UP.
[2020-04-20 22:58] VITALS: BP 105/65
--- NOTE | 2020-04-20 23:14 | NUR ---
MD DINH MADE AWARE AND TO FOLLOW UP IN AM FOR REINSERTION OF NGT TO LET AM KNOW .
[2020-04-21] MEDS: IPRATROPIUM NEB FS 0.5 MG/2.5 ML AMPUL.NEB NEB SCH ×6 (03:20→23:53)
[2020-04-21] MEDS: ALBUTEROL HALF STRENGTH 1.25 MG/3 ML VIAL.NEB NEB SCH ×6 (03:20→23:53)
--- NOTE | 2020-04-21 06:21 | NUR ---
326-1 MS/RN NOTES PATIENT ALERT, ORIENTED X2, ABLE TO SLEEP FEW HOURS, ATTENDED ALL NEEDS, REFUSE TO HAVE NGT TUBE REINSERTED DURING THE NIGHT AND IN EARLY AM. PATIENT PULLED OUT AND MD AWARE TO FOLLOW UP WITH AM FOR REINSERTION AND TO OBTAIN SMALL BOWEL FOLLOW THROUGH. BED LOCKED, CALL LIGHTS WITHIN REACH WILL ENDORSE TO AM RN FOR AMRIK.
[2020-04-21 07:04] LABS: BASOPHILS % (AUTO) 0.1 % (0.0-2.0); EOSINOPHILS % (AUTO) 0.4 % (0.0-6.0); HEMATOCRIT 26 % (39-51); HEMOGLOBIN 8.4 g/dL (13.5-17.5); LYMPHOCYTES # (AUTO) 0.9 /CMM (0.8-4.8); LYMPHOCYTES % (AUTO) 5.4 % (20.0-44.0); MEAN CORPUSCULAR HGB CONC 33 g/dl (31.0-36.0); MEAN CORPUSCULAR VOLUME 83 fL (80-96); MONOCYTES # (AUTO) 0.9 /CMM (0.1-1.30); MONOCYTES % (AUTO) 5.3 % (2.0-12.0); NEUTROPHILS # (AUTO) 15.5 /CMM (1.8-8.9); NEUTROPHILS % (AUTO) 88.8 % (43.0-81.0); PLATELET COUNT (AUTO) 275 /CMM (150-450); RED BLOOD CELL COUNT(AUTO) 3.09 MIL/uL (4.5-6.0); WHITE BLOOD COUNT (AUTO) 17.4 K/uL (4.3-11.0)
[2020-04-21] MEDS: PANTOPRAZOLE 40 MG TABLET.DR PO SCH (07:30)
--- NOTE | 2020-04-21 07:35 | NUR ---
MS/RN OPENING NOTES RECEIVED PATIENT IN BED AWAKE ALERT X2-3. VERBALLY RESPONSIVE, DENIES PAIN, N & V OR ANY DISCOMFORTS AT THIS TIME. ON O2 VIA N/C @ 3 LPM, TOLERATING WELL WITH NO SOB NOTED. TRIPLE LUMEN PICC ON TO INTACT AND PATENT. NGT PULLED OUT BY PT FROM PREVIOUS SHIFT, WILL TRY TO INSERT NGT TODAY. MURRAY IN PLACE WITH CLEAR YELLOW OUTPUT, NO HEMATURIA NOTED AT THIS TIME. SAFETY MEASURES IN PLACE: HOB KEPT ELEVATED, BED IN LOW LOCKED POSITION WITH SR UP X2, BED ALARM ON AND CALL LIGHT WITHIN REACH. WILL CONTINUE TO MONITOR PT ACCORDINGLY.
[2020-04-21 08:00] VITALS: BP 139/85
[2020-04-21 08:02] LABS: CALCIUM, SERUM 8.1 mg/dL (8.5-10.1); CREATININE 0.8 mg/dL (0.6-1.3); MAGNESIUM 1.7 mg/dL (1.8-2.4); PHOSPHORUS 2.5 mg/dL (2.5-4.9); POTASSIUM 3.1 mmol/L (3.5-5.1)
[2020-04-21] MEDS ORDERED: DIATR MEGLU/DIATRIZOATE SODIUM 120 ML BOTTLE (GASTROGRAPHIN) ONE ×2 (08:55→14:59)
[2020-04-21] MEDS: GABAPENTIN 300 MG CAPSULE PO SCH ×4 (09:00→21:00)
[2020-04-21] MEDS: DOCUSATE SODIUM 250 MG CAPSULE PO SCH (09:00)
[2020-04-21] MEDS: Z GUARD REMEDY 2 OZ OINT TP SCH (09:06)
--- NOTE | 2020-04-21 09:48 | NUR ---
Spoke with RN Anastacio. Pt. Refused to swallow contrast for the SBFT study. Tech attempted 3 times and tried to convince pt. Pt. refused at the moment. Please call Radiology at ext. [phone] if patient would like to try again.
[2020-04-21] MEDS: Magnesium 1GM/D5W 100ML PREMIX 100 ML IV SCH ×2 (09:50→11:03)
[2020-04-21] MEDS ORDERED: POTASSIUM CHLORIDE 20 MEQ TAB.PRT.SR PO SCH (10:00)
[2020-04-21] MEDS: POTASSIUM CL. PREMIX PERIPHER. 50 ML IV SCH ×6 (10:11→16:09)
--- NOTE | 2020-04-21 10:12 | NUR ---
RN NOTES PT WENT FOR SMALL BOWEL FOLLOW THROUGH BUT WHEN HE WAS THERE, HE REFUSED TO SWALLOW AND DO THE TEST. PER RADIOLOGIST, PT JUST WANTED RO RETURNED TO UNIT. WHEN PT RETURNED TO UNIT, PT WAS EDUCATED AND EXPLAINED THE IMPORTANCE OF SAID PROCEDURE AND HE VERBALIZED UNDERSTANDING BUT STILL REFUSING TO GO AND HAD THE TEST DONE. DR TAY WAS INFORMED AND SHE SAID THAT SHE WILL COME AND TALK TO THE PT. WILL CONTINUE TO MONITOR
[2020-04-21] MEDS: SOD FERRIC GLUC 125 MG in IV NS 0.9% 100 ML IV SCH (15:02)
--- NOTE | 2020-04-21 15:19 | NUR ---
RT PATIENT NOT IN ROOM FOR SCHEDULED BREATHING TX
--- NOTE | 2020-04-21 15:39 | NUR ---
Third attempt on trying to have patient drink contrast for this exam @1500. Per MD Gauthier to not mix contrast solution with other liquids. Mixed contrast with contrast ice cubes and attempted to have patient drink it. Patient sipped the contast once and refused to drink contrast all together. MD Gauthier spoke with the patient to help patient drink contrast for the study, however patient still refused. RN Ray aware and will let ordering MD know.
--- NOTE | 2020-04-21 15:57 | NUR ---
RN NOTES PT WENT FOR SMALL BOWEL FOLLOW THROUGH AFTER HIS BROTHER CONVINCED HIM TO GO BUT WHEN HE WAS IN THE RADIOLOGY, PT IS UNCOOPERATIVE AND REFUSED TO DO THE PROCEDURE. DR TAY MADE AWARE WITH ORDER TO KEPT PT NPO. WILL CONTINUE TPO MONITOR.
[2020-04-21 16:00] VITALS: BP 144/92
[2020-04-21] MEDS: CEFTRIAXONE 1 G in IV D5W 50 ML IV SCH (17:10)
[2020-04-21] MEDS: ATORVASTATIN 40 MG TABLET PO SCH (17:11)
[2020-04-21 17:19] LABS: APPEARANCE,URINE CLOUDY (CLEAR); BILIRUBIN,URINE NEGATIVE (NEGATIVE); BLOOD, URINE LARGE Ery/uL (NEGATIVE); COLOR,URINE YELLOW (YELLOW); KETONES,URINE TRACE (NEGATIVE); LEUKOCYTE ESTERASE ,URINE MODERATE (NEGATIVE); NITRITE, URINE POSITIVE (NEGATIVE); PROTEIN,URINE 100 mg/dl (NEGATIVE); UGLUCOSE NEGATIVE (NEGATIVE); UROBILINOGEN,URINE 0.2 EU/dL (0.2)
[2020-04-21 17:20] LABS: BASOPHILS # (AUTO) 0.1 /CMM (0.0-0.2); BASOPHILS % (AUTO) 0.2 % (0.0-2.0); EOSINOPHILS % (AUTO) 0.2 % (0.0-6.0); HEMATOCRIT 29 % (39-51); HEMOGLOBIN 9.4 g/dL (13.5-17.5); LYMPHOCYTES # (AUTO) 0.8 /CMM (0.8-4.8); MEAN CORPUSCULAR HGB CONC 32 g/dl (31.0-36.0); MEAN CORPUSCULAR VOLUME 83 fL (80-96); MONOCYTES % (AUTO) 3.6 % (2.0-12.0); NEUTROPHILS # (AUTO) 25.8 /CMM (1.8-8.9); PLATELET COUNT (AUTO) 302 /CMM (150-450); RED BLOOD CELL COUNT(AUTO) 3.53 MIL/uL (4.5-6.0); WHITE BLOOD COUNT (AUTO) 27.7 K/uL (4.3-11.0)
[2020-04-21 18:12] LABS: BACTERIA,URINE 4+ /HPF (None Seen); RBC,URINE 51-80 /HPF (0-2); SQUAMOUS EPITHELIAL CELL,UR 0-2 /HPF (None Seen); WBC,URINE TOO NUMEROUS TO COUN /HPF (0-3)
[2020-04-21 18:17] LABS: LYMPHOCYTES % (MANUAL) 9 % (16-48); MONOCYTES % (MANUAL) 7 % (0-11.0); NEUTROPHILS % (MANUAL) 84 (42-76)
--- NOTE | 2020-04-21 18:40 | NUR ---
MS RN CLOSING NOTES PATIENT IN BED AWAKE AND LYING AT MODERATE HIGH BACKREST POSITION. ALERT X3, SAME VERBALLY RESPONSIVE. PT FOR EGD TOMORROW, NPO MAINTAINED AND ALL CONSENTS SIGNED BY PT AND FILED IN HIS CHART. ON O2 VIA N/C @ 3 LPM, TOLERATING WELL WITH NO SOB NOTED. TRIPLE LUMEN PICC ON TO INTACT AND PATENT. MURRAY IN PLACE WITH YELLOW PINKISH URINE OUTPUT NOTED, MURRAY CARE DONE. PT TURNED AND REPOSITIONED Q 2HRS AND PRN. SAFETY MEASURES IN PLACE: HOB KEPT ELEVATED, BED IN LOW LOCKED POSITION WITH SR UP X2, BED ALARM ON AND CALL LIGHT WITHIN REACH. WILL ENDORSE TO MULTI SHARE PROGRAM COORDINATOR NURSE FOR AMRIK.
[2020-04-21 20:14] VITALS: BP 145/107
[2020-04-21] MEDS: TAMSULOSIN 0.4 MG CAP.SR.24H PO SCH (21:23)
[2020-04-22] MEDS ORDERED: ZOSYN IVPB 3.375 G in IV D5W 50ml IV SCH ×2
[2020-04-22] MEDS ORDERED: PIPERACILLIN /TAZOBACTAM 3.375 G VIAL IV ONE (01:42)
[2020-04-22] MEDS: ALBUTEROL HALF STRENGTH 1.25 MG/3 ML VIAL.NEB NEB SCH ×5 (03:22→20:25)
[2020-04-22] MEDS: IPRATROPIUM NEB FS 0.5 MG/2.5 ML AMPUL.NEB NEB SCH ×5 (03:22→20:25)
[2020-04-22 04:27] VITALS: BP 145/107
--- NOTE | 2020-04-22 07:15 | NUR ---
MS RN OPENING NOTES PATIENT RECEIVED IN BED AWAKE AND LYING AT MODERATE HIGH BACKREST POSITION. A/O X3. VERBALLY RESPONSIVE, DENIES PAIN, N & V OR ANY DISCOMFORTS AT THIS TIME. ON O2 VIA N/C @ 3 LPM, TOLERATING WELL WITH NO SOB NOTED. TRIPLE LUMEN PICC ON TO INTACT AND PATENT. RAC PIV ON RAC G#20 SAME INTACT AND PATENT. PT MAINTAIN ON NPO STATUS. MURRAY IN PLACE WITH CLEAR YELLOW OUTPUT, NO HEMATURIA NOTED AT THIS TIME. SAFETY MEASURES IN PLACE: HOB KEPT ELEVATED, BED IN LOW LOCKED POSITION WITH SR UP X2, BED ALARM ON AND CALL LIGHT WITHIN REACH. WILL CONTINUE TO MONITOR PT ACCORDINGLY.
[2020-04-22] MEDS: PANTOPRAZOLE 40 MG TABLET.DR PO SCH (07:30)
[2020-04-22 07:47] LABS: BASOPHILS % (AUTO) 0.1 % (0.0-2.0); HEMATOCRIT 28 % (39-51); LYMPHOCYTES # (AUTO) 0.8 /CMM (0.8-4.8); LYMPHOCYTES % (AUTO) 3.5 % (20.0-44.0); MEAN CORPUSCULAR HGB CONC 32 g/dl (31.0-36.0); MEAN CORPUSCULAR VOLUME 84 fL (80-96); MONOCYTES # (AUTO) 0.9 /CMM (0.1-1.30); MONOCYTES % (AUTO) 3.8 % (2.0-12.0); NEUTROPHILS # (AUTO) 20.6 /CMM (1.8-8.9); NEUTROPHILS % (AUTO) 92.6 % (43.0-81.0); PLATELET COUNT (AUTO) 257 /CMM (150-450); RED BLOOD CELL COUNT(AUTO) 3.37 MIL/uL (4.5-6.0); WHITE BLOOD COUNT (AUTO) 22.3 K/uL (4.3-11.0)
[2020-04-22 08:00] VITALS: BP 147/89
[2020-04-22 08:01] LABS: CALCIUM, SERUM 8.4 mg/dL (8.5-10.1); CREATININE 1.1 mg/dL (0.6-1.3); MAGNESIUM 2.2 mg/dL (1.8-2.4); PHOSPHORUS 3.6 mg/dL (2.5-4.9); POTASSIUM 3.1 mmol/L (3.5-5.1)
[2020-04-22] MEDS: PIPERACILLIN /TAZOBACTAM 3.375 G in IV D5W 100 ML IV SCH ×2 (08:57→15:11)
[2020-04-22] MEDS: DOCUSATE SODIUM 250 MG CAPSULE PO SCH (09:00)
[2020-04-22] MEDS: GABAPENTIN 300 MG CAPSULE PO SCH ×4 (09:00→21:06)
[2020-04-22] MEDS: Z GUARD REMEDY 2 OZ OINT TP SCH (09:05)
[2020-04-22] MEDS: POTASSIUM CHLORIDE 20 MEQ TAB.PRT.SR PO SCH ×2 (11:49→12:34)
[2020-04-22 16:00] VITALS: BP 124/71
[2020-04-22] MEDS: ATORVASTATIN 40 MG TABLET PO SCH (17:21)
--- NOTE | 2020-04-22 18:53 | NUR ---
MS RN CLOSING NOTES PATIENT IN BED AWAKE AND WATCHING TV. A/O X3, SAME VERBALLY RESPONSIVE. PT FOR EGD TOMORROW, WILL ENFORCED NPO POST MIDNIGHT. ON O2 VIA N/C @ 3 LPM, TOLERATING WELL WITH NO SOB NOTED. TRIPLE LUMEN PICC ON TO INTACT AND PATENT. MURRAY IN PLACE WITH YELLOW PINKISH URINE OUTPUT NOTED, MURRAY CARE DONE. PT TURNED AND REPOSITIONED Q 2HRS AND PRN. SAFETY MEASURES IN PLACE: HOB KEPT ELEVATED, BED IN LOW LOCKED POSITION WITH SR UP X2, BED ALARM ON AND CALL LIGHT WITHIN REACH. WILL ENDORSE TO PUBLIC INFORMATION RELATIONS MANAGER NURSE FOR AMRIK.
--- NOTE | 2020-04-22 19:38 | NUR ---
MS RN OPENING NOTE: Patient in bed, awake and alert. Patient AOx3, able to make needs known. Patient denies pain or discomfort at this time. On nasal canula at 2L. Tolerating Oxygen well. No SOB and no respiratory distress noted. Breathing even and unlabored. Noted right upper arm PICC; intact, patent, no redness, or infiltration. Noted Michael Catheter, in place, draining clear pink output. Safety precaution in place, bed in the lowest setting, brakes are on, alarm is on, side rails x2 are up, and call light is within reach. Will continue to monitor.
[2020-04-22 20:00] VITALS: BP 119/74
[2020-04-22] MEDS: TAMSULOSIN 0.4 MG CAP.SR.24H PO SCH (21:06)
[2020-04-23] MEDS: IPRATROPIUM NEB FS 0.5 MG/2.5 ML AMPUL.NEB NEB SCH ×7 (00:09→23:09)
[2020-04-23] MEDS: ALBUTEROL HALF STRENGTH 1.25 MG/3 ML VIAL.NEB NEB SCH ×7 (00:09→23:09)
[2020-04-23] MEDS: PIPERACILLIN /TAZOBACTAM 3.375 G in IV D5W 100 ML IV SCH ×2 (00:34→07:46)
[2020-04-23 06:32] LABS: BASOPHILS % (AUTO) 0.2 % (0.0-2.0); EOSINOPHILS % (AUTO) 0.7 % (0.0-6.0); HEMATOCRIT 25 % (39-51); LYMPHOCYTES # (AUTO) 0.8 /CMM (0.8-4.8); LYMPHOCYTES % (AUTO) 5.5 % (20.0-44.0); MEAN CORPUSCULAR HGB CONC 32 g/dl (31.0-36.0); MEAN CORPUSCULAR VOLUME 84 fL (80-96); MONOCYTES # (AUTO) 0.9 /CMM (0.1-1.30); MONOCYTES % (AUTO) 6.3 % (2.0-12.0); NEUTROPHILS # (AUTO) 12.3 /CMM (1.8-8.9); NEUTROPHILS % (AUTO) 87.3 % (43.0-81.0); PLATELET COUNT (AUTO) 230 /CMM (150-450); RED BLOOD CELL COUNT(AUTO) 2.98 MIL/uL (4.5-6.0); WHITE BLOOD COUNT (AUTO) 14.1 K/uL (4.3-11.0)
--- NOTE | 2020-04-23 06:36 | NUR ---
MS RN CLOSING NOTE: Patient in bed sleeping but easily aroused. Patient on 3L nasal canula. No SOB, no distress noted. Michael output 1000mL tea colored cloudy. Patient NPO due to EGD procedure today. Safety precaution in place, bed in the lowest level, brakes are on, alarm is on, side rails x2 are up, and call light is within reach. Will endorse to next shift.
[2020-04-23 06:38] LABS: CALCIUM, SERUM 7.7 mg/dL (8.5-10.1); CREATININE 0.8 mg/dL (0.6-1.3)
[2020-04-23 06:39] LABS: POTASSIUM 2.5 mmol/L (3.5-5.1)
--- NOTE | 2020-04-23 06:49 | NUR ---
MS RN NOTE: Received critical lab. Potassium 2.5. Called [facility] to notify Dr. High of critical lab. Waiting for a call back, no orders at this time. Will monitor patient.
--- NOTE | 2020-04-23 07:14 | NUR ---
MS RN NOTE: Made Epic MD aware, Andonian, of patients potasium 2.5. Md ordered Potassium IV 60 Meq. Read order back and carried out. Will endorse to next shift.
[2020-04-23] MEDS ORDERED: POTASSIUM CHLORIDE 10 MEQ/50 ML PREMIXED IVPB FOR PERIPHERAL LINE IV ONE (07:30)
[2020-04-23] MEDS: PANTOPRAZOLE 40 MG TABLET.DR PO SCH ×2 (07:30→07:43)
[2020-04-23] MEDS: POTASSIUM CL. PREMIX PERIPHER. 50 ML IV SCH ×6 (07:31→17:27)
--- NOTE | 2020-04-23 07:57 | NUR ---
MS/RN OPENING NOTES RECEIVED PATENT ON BED ALERT ORIENTED X3. PATENT DENIES PAIN AT THIS TIME. NO APPARENT RESPIRATORY DISTRESS NOTED. BED IN LOWEST POSITION AND LOCKED. WILL CONTINUE TO MONITOR.
[2020-04-23] MEDS: GABAPENTIN 300 MG CAPSULE PO SCH ×4 (08:05→21:56)
[2020-04-23] MEDS: DOCUSATE SODIUM 250 MG CAPSULE PO SCH (08:05)
[2020-04-23] MEDS: Z GUARD REMEDY 2 OZ OINT TP SCH (08:06)
--- NOTE | 2020-04-23 08:09 | NUR ---
MS/RN NOTES PATIENT IS ON NPO, MORNING ORAL MEDS IS WITH HELD. WILL CONTINUE TO MONITOR.
[2020-04-23] MEDS ORDERED: ANESTHESIA TRAY IN PYXIS 1 EA TRAY MC ONE (09:03)
--- NOTE | 2020-04-23 10:03 | NUR ---
MS/RN NOTES PATIENT IS OUT IN THE UNIT, PATIENT IS STABLE, V/S TAKEN BP 110/67 P- 92 RR 18 TEMP 98.3 SAO2 93%. PATIENT IS ON 3L OXYGEN VIA NASAL CANNULA. PATIENT IN NO APPARENT RESPIRATORY DISTRESS. CHARGE MASTER COORDINATOR BY [employer]OKO OLERICULTURE TEACHER VIA MEDICAL BED.
--- NOTE | 2020-04-23 11:02 | NUR ---
MS/RN NOTES PATIENT CAME BACK FROM OR. PATIENT IN 3 L OXYGEN VIA NASAL CANNULA. PATIENT IN NO APPARENT RESPIRATORY DISTRESS NOTED. PATIENT V/S BP 117/77 P- 89 T- 98 SAO2 95% RR 18. NO NEW ORDER AT THIS TIME. WILL CONTINUE TO MONITOR. Addendum: 04/23/20 at 1113 by VIJAYA ORTEGA RN ERROR
--- NOTE | 2020-04-23 11:13 | NUR ---
MS/RN NOTES PATIENT CAME BACK FROM OR. PATIENT IN 3 L OXYGEN VIA NASAL CANNULA. PATIENT IN NO APPARENT RESPIRATORY DISTRESS NOTED. PATIENT V/S BP 117/77 P- 89 T- 98 SAO2 95% RR 18. NO NEW ORDER AT THIS TIME. WILL CONTINUE TO MONITOR.
[2020-04-23] MEDS: SUCRALFATE 1 G/10 ML UDC GT SCH ×3 (12:31→21:56)
[2020-04-23] MEDS: LEVOFLOXACIN 750 MG /D5W 150ML 750 MG in PREMIX 1 EA IV SCH (16:04)
[2020-04-23] MEDS: ATORVASTATIN 40 MG TABLET PO SCH (17:34)
[2020-04-23] MEDS: LINEZOLID RTU BAG 600 MG in PREMIX 1 EA IV SCH (17:35)
[2020-04-23 19:19] LABS: CHLORIDE,URINE RANDOM 140 mmol/L (55-125); POTASSIUM RNDM,URINE 36 mmol/L (25-125); URINE SODIUM, RANDOM 147 mmol/l (40-220)
--- NOTE | 2020-04-23 19:22 | NUR ---
MS/RN CLOSING NOTES PATIENT IS ON BED. ALERT AND ORIENTED X3. PATIENT DENIES PAIN AT THIS TIME. PATIENT IN NO APPARENT RESPIRATORY DISTRESS NOTED. IV ACCESS AT RIGHT UPPER ARM PICC LINE PATENT AND INTACT. SEEN AND EXAMINED BY MD WITH ORDERS MADE AND CARRIED OUT ALL DUE MEDICATION WAS GIVEN. SAFETY PRECAUTION IN PLACED. BED IN LOWEST POSITION AND LOCKED SIDE RAILS UP X2. CALL LIGHT WITHIN REACH. WILL ENDORSED TO SANDING MACHINE BUFFER FOR AMRIK.
[2020-04-23 19:36] LABS: OSMOLALITY,URINE 504 mOS/kg (340-1090)
--- NOTE | 2020-04-23 19:52 | NUR ---
MS RN NOTE: Received patient from morning nurse. Patient is in bed, awake and alert. Patient able to make needs known. Patient denies pain or discomfort at this time. On 3L nasal canula. Patient is breathing well, no signs of respiratory distress, no SOB. Noted right upper arm PICC line; dressing intact, patent, no redness or infiltration. Michael catheter intact, draining well. Safety precaution is in place, bed is in the lowest level, brake are on, alarm is on, side rails are up, and call light is within reach. Will continue to monitor.
[2020-04-23 20:42] VITALS: BP 144/63
[2020-04-23] MEDS: TAMSULOSIN 0.4 MG CAP.SR.24H PO SCH (21:56)
--- NOTE | 2020-04-23 23:10 | NUR ---
RT PATIENT REFUSED SCHEDULED BREATHING TX
--- NOTE | 2020-04-24 00:38 | NUR ---
MS RN NOTE: Endorsed patient to Stephie for continuity of care.
--- NOTE | 2020-04-24 00:38 | NUR ---
MS RN OPENING NOTE - TRANSFER OF CARE NOTE RECEIVED PATIENT IN BED, A/OX3. ON OXYGEN 3L/MIN VIA NASAL CANNULA. RESPIRATIONS ARE EVEN AND UNLABORED. NO S/S SOB NOTED. NO S/S OR C/O PAIN AT THIS TIME. IN NO APPARENT DISTRESS. IV ACCESS IN TO PICCLINE PATENT AND SALINE LOCKED. MURRAY CATHETER IS PRESENT DRAINING TO GRAVITY, URINE IS SLIGHTLY PINK. BED IS LOW AND LOCKED HOB EL ELEVATED IN HIGH FOWLERS, DOCUMENTATION CONSULTANT RAILS UP X2, CALL LIGHT WITHIN REACH. WILL CONTINUE TO MONITOR.
[2020-04-24] MEDS: ALBUTEROL HALF STRENGTH 1.25 MG/3 ML VIAL.NEB NEB SCH ×6 (03:24→22:56)
[2020-04-24] MEDS: IPRATROPIUM NEB FS 0.5 MG/2.5 ML AMPUL.NEB NEB SCH ×6 (03:24→22:56)
[2020-04-24] MEDS: LINEZOLID RTU BAG 600 MG in PREMIX 1 EA IV SCH ×2 (05:27→17:08)
--- NOTE | 2020-04-24 06:55 | NUR ---
MS RN CLOSING NOTE PATIENT IN BED, A/OX3. REMAINS ON OXYGEN 3L/MIN VIA NASAL CANNULA. RESPIRATIONS ARE EVEN AND UNLABORED. NO RESP DISTRESS NOTED. NO C/O PAIN T/O SHIFT.NO DISTRESS. IV ACCESS MAINTAINED IN TO PICCLINE CURRENTLY INFUSING ZYVOX. MURRAY CATHETER IS MAINTAINED, DRAINING TO GRAVITY, OUTPUT 1300ML . BED REMAINS LOW AND LOCKED HOB EL ELEVATED IN SEMI FOWLERS, SIZE MAKER RAILS UP X2, CALL LIGHT WITHIN REACH. WILL ENDORSE TO NEXT SHIFT.
[2020-04-24 06:56] LABS: BASOPHILS % (AUTO) 0.3 % (0.0-2.0); HEMATOCRIT 25 % (39-51); HEMOGLOBIN 8.2 g/dL (13.5-17.5); LYMPHOCYTES # (AUTO) 1.1 /CMM (0.8-4.8); LYMPHOCYTES % (AUTO) 9.3 % (20.0-44.0); MEAN CORPUSCULAR HGB CONC 33 g/dl (31.0-36.0); MEAN CORPUSCULAR VOLUME 83 fL (80-96); MONOCYTES % (AUTO) 7.9 % (2.0-12.0); NEUTROPHILS # (AUTO) 10.1 /CMM (1.8-8.9); NEUTROPHILS % (AUTO) 81.5 % (43.0-81.0); PLATELET COUNT (AUTO) 204 /CMM (150-450); RED BLOOD CELL COUNT(AUTO) 3.02 MIL/uL (4.5-6.0); WHITE BLOOD COUNT (AUTO) 12.3 K/uL (4.3-11.0)
[2020-04-24] MEDS ORDERED: PANTOPRAZOLE 40 MG TABLET.DR PO SCH (07:30)
[2020-04-24] MEDS: PANTOPRAZOLE 40 MG TABLET.DR PO SCH (07:35)
[2020-04-24] MEDS: SUCRALFATE 1 G/10 ML UDC GT SCH ×5 (07:35→21:37)
--- NOTE | 2020-04-24 07:36 | NUR ---
MS/RN OPENING NOTES RECEIVED PATIENT ON BED AWAKE, ALERT AND ORIENTED X3. PATIENT DENIES PAIN AT THIS TIME. PATIENT IN NO APPARENT RESPIRATORY DISTRESS NOTED. PATIENT WITH LIGHT REDDISH COLOR URINE OUTPUT AND SMALL AMOUNT OF SEDIMENTS NOTED IN THE MURRAY BAG. WILL CONTINUE TO MONITOR.
[2020-04-24 07:40] LABS: ALBUMIN 1.8 g/dL (3.4-5.0); BILIRUBIN,TOTAL 0.4 mg/dL (0.2-1.0); CALCIUM, SERUM 7.8 mg/dL (8.5-10.1); CREATININE 0.7 mg/dL (0.6-1.3); MAGNESIUM 1.6 mg/dL (1.8-2.4); PHOSPHORUS 1.8 mg/dL (2.5-4.9); TOTAL PROTEIN, SERUM 6.2 g/dL (6.4-8.2)
[2020-04-24 07:45] LABS: POTASSIUM 2.7 mmol/L (3.5-5.1)
--- NOTE | 2020-04-24 07:59 | NUR ---
MS/RN NOTES POTASSIUM 2.7 AND MAGNESIUM 1.6 MD IS AWARE. MD ORDER POTASSIUM 40 MEQ IV ONCE NOTED AND CARRIED OUT.
[2020-04-24 08:00] VITALS: BP 113/69
[2020-04-24] MEDS: DOCUSATE SODIUM 250 MG CAPSULE PO SCH (08:25)
[2020-04-24] MEDS: GABAPENTIN 300 MG CAPSULE PO SCH ×5 (08:25→21:37)
[2020-04-24] MEDS ORDERED: POTASSIUM CHLORIDE 10 MEQ/50 ML PREMIXED IVPB FOR PERIPHERAL LINE IV ONE (08:30)
[2020-04-24] MEDS: POTASSIUM CL. PREMIX PERIPHER. 50 ML IV SCH ×4 (09:15→14:49)
[2020-04-24] MEDS: Z GUARD REMEDY 2 OZ OINT TP SCH (09:29)
[2020-04-24] MEDS: Magnesium 1GM/D5W 100ML PREMIX 100 ML IV SCH ×2 (09:59→11:06)
[2020-04-24] MEDS ORDERED: POTASSIUM PHOSPHATE MM 7.5 MMOL in IV NS 0.9% 100 ML IV SCH (12:00)
--- NOTE | 2020-04-24 12:43 | NUR ---
MS/RN NOTES PATIENT REFUSED GABAPENTIN 300 MG 2 CAP P.O. AND SUCRALFATE 1GM P.O. EXPLAINED THE RISK AND BENEFITS PATIENT IS STILL REFUSING. WILL CONTINUE TO MONITOR.
[2020-04-24] MEDS: LEVOFLOXACIN 750 MG /D5W 150ML 750 MG in PREMIX 1 EA IV SCH (15:05)
[2020-04-24 16:00] VITALS: BP 127/71
[2020-04-24] MEDS: ATORVASTATIN 40 MG TABLET PO SCH (17:08)
--- NOTE | 2020-04-24 19:30 | NUR ---
MS/RN CLOSING NOTES PATIENT IS ON BED, ALERT AND ORIENTED X3. PATIENT DENIES PAIN AT THIS TIME. PATIENT IN NO APPARENT RESPIRATORY DISTRESS NOTED. IV ACCESS AT RIGHT UPPER ARM PICC LINE PATENT AND INTACT. SEEN AND EXAMINED BY MD WITH ORDERS MADE AND CARRIED OUT. ALL DUE MEDICATION WAS GIVEN. CHECKED PATIENT EVERY 2 HOURS. SAFETY PRECAUTION IN PLACED. BED IN LOWEST POSITION AND LOCKED, SIDERAILS UP X2. CALL LIGHT WITH IN REACH. WILL ENDORSED TO ERGONOMIST FOR AMRIK.
--- NOTE | 2020-04-24 19:50 | NUR ---
MS RN NOTE: PATIENT RESTING IN BED, NO ACUTE DISTRESS NOTED. BREATHING EVEN AND UNLABORED, NO SOB NOTED. PICC LINE TO TO IN PLACE. MURRAY CATHETER IN PLACE, EMPTY AT THIS TIME. BED LOCKED AND IN LOWEST POSITION, CALL LIGHT IN REACH, WILL CONTINUE TO MONITOR.
[2020-04-24 20:00] VITALS: BP 112/65
[2020-04-24] MEDS: TAMSULOSIN 0.4 MG CAP.SR.24H PO SCH (21:37)
--- NOTE | 2020-04-25 03:00 | NUR ---
MS RN NOTE: PATIENT RESTING IN BED, NO ACUTE DISTRESS NOTED. BREATHING EVEN AND UNLABORED, NO SOB NOTED. PICC LINE TO TO IN PLACE. MURRAY CATHETER IN PLACE, DRAINING ROSE MARIE URINE. BED LOCKED AND IN LOWEST POSITION, CALL LIGHT IN REACH, WILL CONTINUE TO MONITOR.
[2020-04-25] MEDS: IPRATROPIUM NEB FS 0.5 MG/2.5 ML AMPUL.NEB NEB SCH ×6 (03:30→23:30)
[2020-04-25] MEDS: ALBUTEROL HALF STRENGTH 1.25 MG/3 ML VIAL.NEB NEB SCH ×6 (03:30→23:30)
[2020-04-25] MEDS: LINEZOLID RTU BAG 600 MG in PREMIX 1 EA IV SCH (06:36)
--- NOTE | 2020-04-25 06:45 | NUR ---
MS RN NOTE: PATIENT RESTING IN BED, NO ACUTE DISTRESS NOTED. BREATHING EVEN AND UNLABORED, NO SOB NOTED. PICC LINE TO TO IN PLACE. MURRAY CATHETER IN PLACE, DRAINED 2500ML OF ROSE MARIE URINE. BED LOCKED AND IN LOWEST POSITION, CALL LIGHT IN REACH, WILL ENDORSE TO DAY NURSE TO CONTINUE WITH PLAN OF CARE.
--- NOTE | 2020-04-25 07:30 | NUR ---
RN Opening Received patient AO x 2-3, able to responds all stimuli. Does no appears pain or distress, skin is warm to touch, keep clean/dry, intact picc line with SL. Respiratory even and unlabored with oxygen at 3LPM. Keep bed in locked with elevated HOB for ensure airway and aspiration precaution. Call light within reach, will continue to monitor.
[2020-04-25 07:41] LABS: BASOPHILS # (AUTO) 0.1 /CMM (0.0-0.2); BASOPHILS % (AUTO) 0.5 % (0.0-2.0); EOSINOPHILS % (AUTO) 1.4 % (0.0-6.0); HEMATOCRIT 26 % (39-51); HEMOGLOBIN 8.6 g/dL (13.5-17.5); LYMPHOCYTES # (AUTO) 1.4 /CMM (0.8-4.8); LYMPHOCYTES % (AUTO) 14.1 % (20.0-44.0); MEAN CORPUSCULAR HGB CONC 33 g/dl (31.0-36.0); MEAN CORPUSCULAR VOLUME 82 fL (80-96); MONOCYTES % (AUTO) 10.5 % (2.0-12.0); NEUTROPHILS # (AUTO) 7.2 /CMM (1.8-8.9); NEUTROPHILS % (AUTO) 73.5 % (43.0-81.0); PLATELET COUNT (AUTO) 234 /CMM (150-450); RED BLOOD CELL COUNT(AUTO) 3.14 MIL/uL (4.5-6.0); WHITE BLOOD COUNT (AUTO) 9.8 K/uL (4.3-11.0)
[2020-04-25] MEDS: PANTOPRAZOLE 40 MG TABLET.DR PO SCH (07:51)
[2020-04-25] MEDS: SUCRALFATE 1 G/10 ML UDC GT SCH ×4 (07:51→21:23)
[2020-04-25 07:59] LABS: CALCIUM, SERUM 7.5 mg/dL (8.5-10.1); CREATININE 0.7 mg/dL (0.6-1.3); MAGNESIUM 1.6 mg/dL (1.8-2.4); PHOSPHORUS 1.6 mg/dL (2.5-4.9)
[2020-04-25 08:00] VITALS: BP 108/62
[2020-04-25 08:03] LABS: POTASSIUM 2.8 mmol/L (3.5-5.1)
[2020-04-25] MEDS: DOCUSATE SODIUM 250 MG CAPSULE PO SCH (09:08)
[2020-04-25] MEDS: Z GUARD REMEDY 2 OZ OINT TP SCH (09:08)
[2020-04-25] MEDS: GABAPENTIN 300 MG CAPSULE PO SCH ×4 (09:08→21:23)
[2020-04-25] MEDS: POTASSIUM CHLORIDE 20 MEQ TAB.PRT.SR PO SCH ×3 (09:49→11:35)
[2020-04-25] MEDS: Magnesium 1GM/D5W 100ML PREMIX 100 ML IV SCH ×2 (10:15→11:35)
[2020-04-25] MEDS: POTASSIUM PHOSPHATE MM 7.5 MMOL in IV NS 0.9% 100 ML IV SCH ×2 (13:38→16:49)
[2020-04-25] MEDS: LEVOFLOXACIN 750 MG /D5W 150ML 750 MG in PREMIX 1 EA IV SCH (14:50)
[2020-04-25 16:00] VITALS: BP 104/60
[2020-04-25] MEDS: ATORVASTATIN 40 MG TABLET PO SCH (17:56)
[2020-04-25] MEDS: LINEZOLID 600 MG TABLET PO SCH (17:57)
--- NOTE | 2020-04-25 18:50 | NUR ---
RN Closing NOte Patient is in bed, resting comfortably, no appears pain or distress, skin is warm to touch, keep clean/dry, given castro care, intact piccline. Respiratory even and unlabored on room air o2sat 96%, no distress observed, O2sat 100%. Keep bed in lock with elevated HOB for ensure airway and aspiration precaution. Call light within reach, will endorse police superintendent. I/O 1100ml castro, BM x 2.
--- NOTE | 2020-04-25 20:02 | NUR ---
MS/RN OPENING NOTE Patient awake in bed, A/O x2-3. HOB elevated. Breathing even, clear, unlabored, on room air. Skin warm, pink, dry, appropriate for ethnicity. Abdomen large, soft, round, non-distended. Bowel sounds normoactive in all quadrants. Sacral redness noted. Michael catheter in place, draining clear, ania urine. TO picc line clean, dry, intact. No signs of redness or infiltration. Bed in low position, wheels locked, side rails up x2, call light within reach.
[2020-04-25 20:49] VITALS: BP 119/67
[2020-04-25 21:00] LABS: CHLORIDE,URINE RANDOM 107 mmol/L (55-125); POTASSIUM RNDM,URINE 19 mmol/L (25-125); URINE SODIUM, RANDOM 110 mmol/l (40-220)
[2020-04-25 21:06] LABS: OSMOLALITY,URINE 494 mOS/kg (340-1090)
[2020-04-25] MEDS: TAMSULOSIN 0.4 MG CAP.SR.24H PO SCH (21:23)
[2020-04-25 22:54] VITALS: BP 119/67
[2020-04-26] MEDS: IPRATROPIUM NEB FS 0.5 MG/2.5 ML AMPUL.NEB NEB SCH ×6 (03:07→23:30)
[2020-04-26] MEDS: ALBUTEROL HALF STRENGTH 1.25 MG/3 ML VIAL.NEB NEB SCH ×6 (03:07→23:30)
[2020-04-26 06:39] LABS: CALCIUM, SERUM 7.5 mg/dL (8.5-10.1); CREATININE 0.7 mg/dL (0.6-1.3); MAGNESIUM 1.7 mg/dL (1.8-2.4); POTASSIUM 2.9 mmol/L (3.5-5.1)
--- NOTE | 2020-04-26 07:03 | NUR ---
MS/RN OPENING NOTE Patient awake in bed, A/O x2-3. HOB elevated. Patient has been non compliant with PO medications. Patient states it is too painful to swallow even with food. Breathing even, clear, unlabored, on room air. Skin warm, pink, dry, appropriate for ethnicity. Left sided weakness noted. Sacral redness noted. Michael catheter in place, draining clear, ania urine, some clots . TO picc line clean, dry, intact. No signs of redness or infiltration. Bed in low position, wheels locked, side rails up x2, call light within reach. Bed in low position, wheels locked, side rails up x2, call light within reach. Will endorse to oncoming nurse.
--- NOTE | 2020-04-26 07:08 | NUR ---
MS RN OPENING NOTE RECEIVED PT AWAKE IN BED AT THIS TIME. A/O X 2-3, NO SOB NOTED, NO S/S OF ANY ACUTE DISTRESS NOTED. NO C/O PAIN AT THIS TIME. RESPIRATIONS ARE EVEN AND UNLABORED WITH EQUAL RISE AND FALL IN CHEST. PT ABLE TO MAKE NEEDS KNOWN. TO PICC LINE PATENT, INTACT AND FLUSHING WELL. FC IN PLACE DRAINING TO GRAVITY RED URINE OUTPUT. FALL AND SAFETY PRECAUTION IN PLACE AND MAINTAINED AT ALL TIMES. BED IN LOWEST LOCKED POSITION, HOB ELEVATED, RAILS UP X 2, CALL LIGHT WITHIN REACH. WILL CONTINUE TO MONITOR
[2020-04-26 08:00] VITALS: BP 132/77
--- NOTE | 2020-04-26 08:03 | NUR ---
Patient not NPO per RN, unable to do small bowel exam
[2020-04-26] MEDS: DOCUSATE SODIUM 250 MG CAPSULE PO SCH (08:28)
[2020-04-26] MEDS: PANTOPRAZOLE 40 MG TABLET.DR PO SCH (08:28)
[2020-04-26] MEDS: GABAPENTIN 300 MG CAPSULE PO SCH ×4 (08:28→21:00)
[2020-04-26] MEDS: SUCRALFATE 1 G/10 ML UDC GT SCH ×4 (08:29→21:00)
[2020-04-26] MEDS: Z GUARD REMEDY 2 OZ OINT TP SCH (08:43)
[2020-04-26] MEDS: POTASSIUM CHLORIDE 20 MEQ TAB.PRT.SR PO SCH ×2 (09:53→10:00)
[2020-04-26] MEDS: Magnesium 1GM/D5W 100ML PREMIX 100 ML IV SCH ×2 (09:53→14:00)
[2020-04-26] MEDS ORDERED: POTASSIUM PHOSPHATE MM 15 MMOL in IV NS 0.9% 250 ML IV SCH (10:00)
--- NOTE | 2020-04-26 11:13 | NUR ---
PT REFUSED KDUR 20MEQ PO Q1HR AT THIS TIME. JOSHUA, CHARGE NURSE AND MICHA BECERRIL MADE AWARE. PER MICHA BECERRIL REQUEST, DC KDUR 20MEQ PO Q1HR. WILL CONTINUE TO MONITOR
--- NOTE | 2020-04-26 11:15 | NUR ---
PT'S LAB VALUE FOR POTASSIUM 2.6. MICHA BECERRIL AND JOSHUA, CHARGE NURSE MADE AWARE. RECEIVED ORDERS TO ADMINISTER KCL 10MEQ OVER 1HR X 6DOSES. ORDERS READ BACK AND CARRIED OUT. WILL CONTINUE TO MONITOR
[2020-04-26] MEDS ORDERED: POTASSIUM CL. PREMIX PERIPHER. 50 ML IV SCH (11:48)
--- NOTE | 2020-04-26 11:48 | NUR ---
PT REFUSED RESP TX ATT. NO S/S OF SOB NOTED. WILL CONT TO MONITOR Addendum: 04/26/20 at 1149 by FILIPPO GARCIA RT Amended: Links added.
[2020-04-26] MEDS ORDERED: POTASSIUM CHLORIDE 10 MEQ/50 ML PREMIXED IVPB FOR PERIPHERAL LINE IV ONE (12:30)
[2020-04-26] MEDS: POTASSIUM CL. PREMIX PERIPHER. 50 ML IV SCH ×6 (14:02→20:12)
--- NOTE | 2020-04-26 14:42 | NUR ---
PT REFUSED RESP TX ATT. NO S/S OF SOB NOTED. WILL CONT TO MONITOR Addendum: 04/26/20 at 1442 by FILIPPO GARCIA RT Amended: Links added.
[2020-04-26] MEDS: LEVOFLOXACIN 750 MG /D5W 150ML 750 MG in PREMIX 1 EA IV SCH (15:16)
[2020-04-26 16:00] VITALS: BP 107/61
[2020-04-26] MEDS: ATORVASTATIN 40 MG TABLET PO SCH (17:27)
[2020-04-26] MEDS: LINEZOLID 600 MG TABLET PO SCH (18:00)
--- NOTE | 2020-04-26 19:15 | NUR ---
MS RN CLOSING NOTES PT AWAKE IN BED AT THIS TIME. PT REMAINED STABLE THROUGHOUT SHIFT. PT KEPT CLEAN AND DRY. ALL CARE, NEEDS, MEDICATION AND TREATMENT ADMINISTERED ANTICIPATED PER ORDER. ASPIRATION AND SAFETY PRECAUTION IN PLACE. FC CARE PROVIDED. BED IN LOWEST LOCKED POSITION, HOB ELEVATED, RAILS UP X 2, CALL LIGHT WITHIN REACH. WILL ENDORSE TO HOGSHEAD ROLLER NURSE FOR AMRIK
[2020-04-26 20:00] VITALS: BP 134/69
--- NOTE | 2020-04-26 20:04 | NUR ---
MS/RN OPENING NOTE Patient awake in bed, A/O x2-3. HOB elevated. Patient denies pain. Afebrile. Breathing even, clear, unlabored, on room air. Skin warm, dry, appropriate for ethnicity. Abdomen large, soft, round, non-tender Bowel sounds normoactive in all quadrants. Sacral redness noted, covered with mepilex. Michael catheter in place, draining clear, bright red urine. TO picc line clean, dry, intact. No signs of redness or infiltration. Bed in low position, wheels locked, side rails up x2, call light within reach.
[2020-04-26] MEDS: TAMSULOSIN 0.4 MG CAP.SR.24H PO SCH (21:00)
--- NOTE | 2020-04-26 21:30 | NUR ---
MS/RN NOTE Patient refused to take medication. Attempted to give medications crushed in apple sauce, patient would not open his mouth.
[2020-04-26 23:00] VITALS: BP 134/69
[2020-04-27] MEDS: IPRATROPIUM NEB FS 0.5 MG/2.5 ML AMPUL.NEB NEB SCH ×6 (03:30→23:30)
[2020-04-27] MEDS: ALBUTEROL HALF STRENGTH 1.25 MG/3 ML VIAL.NEB NEB SCH ×6 (03:30→23:30)
--- NOTE | 2020-04-27 03:37 | NUR ---
MS/RN NOTE Patient refused 2 breathing treatments, per RT.
[2020-04-27] MEDS: LINEZOLID 600 MG TABLET PO SCH ×2 (05:16→17:24)
[2020-04-27] MEDS: SUCRALFATE 1 G/10 ML UDC GT SCH ×4 (06:46→21:42)
[2020-04-27] MEDS: PANTOPRAZOLE 40 MG TABLET.DR PO SCH (06:46)
--- NOTE | 2020-04-27 07:10 | NUR ---
MS/RN CLOSING NOTE Patient awake in bed, A/O x2. HOB elevated. Patient denies pain. Afebrile. Breathing even, clear, unlabored, on room air. Skin warm, dry, appropriate for ethnicity. Abdomen large, soft, round, non-tender Bowel sounds normoactive in all quadrants. Patient had 3 bowel movements, large, brown, soft. Sacral redness noted, covered with mepilex. Michael catheter in place, draining clear, bright red urine 1350 ml. TO picc line clean, dry, intact. No signs of redness or infiltration. Bed in low position, wheels locked, side rails up x2, call light within reach. Will endorse to oncoming nurse.
[2020-04-27 08:00] VITALS: BP 102/69
--- NOTE | 2020-04-27 08:00 | NUR ---
MS/RN OPENING NOTE Patient awake in bed, A/O x2-3. HOB elevated. Patient denies pain. Afebrile. Breathing even, clear, unlabored, on room air. Skin warm, dry, appropriate for ethnicity. Abdomen large, soft, round, non-tender Bowel sounds normoactive in all quadrants. Sacral redness noted, covered with mepilex. Michael catheter in place, draining clear, bright red urine. Seen by ID INTERACTIVE MEDIA MARKETING SPECIALIST and is aware of hematuria. TO picc line clean, dry, intact. No signs of redness or infiltration. Bed in low position, wheels locked, side rails up x2, call light within reach.
--- NOTE | 2020-04-27 08:14 | NUR ---
PT REFUSED RESP TX ATT. NO S/S OF SOB NOTED. BENEFITS AND CONTRAINDICATIONS EXPLAINED. WILL CONT TO MONITOR Addendum: 04/27/20 at 0815 by FILIPPO GARCIA RT Amended: Links added.
[2020-04-27 08:17] LABS: CREATININE 0.6 mg/dL (0.6-1.3); PHOSPHORUS 2.2 mg/dL (2.5-4.9); POTASSIUM 3.4 mmol/L (3.5-5.1)
[2020-04-27] MEDS: DOCUSATE SODIUM 250 MG CAPSULE PO SCH ×2 (09:00→09:08)
[2020-04-27] MEDS: GABAPENTIN 300 MG CAPSULE PO SCH ×5 (09:00→21:00)
[2020-04-27] MEDS: CALCIUM CARB 600MG /VIT D 1 EACH TABLET PO SCH ×2 (09:00→09:08)
[2020-04-27] MEDS: Z GUARD REMEDY 2 OZ OINT TP SCH (09:09)
[2020-04-27 10:08] LABS: BASOPHILS % (AUTO) 0.6 % (0.0-2.0); EOSINOPHILS % (AUTO) 1.7 % (0.0-6.0); HEMATOCRIT 27 % (39-51); HEMOGLOBIN 8.8 g/dL (13.5-17.5); LYMPHOCYTES # (AUTO) 1.1 /CMM (0.8-4.8); LYMPHOCYTES % (AUTO) 17.9 % (20.0-44.0); MEAN CORPUSCULAR HGB CONC 33 g/dl (31.0-36.0); MEAN CORPUSCULAR VOLUME 82 fL (80-96); MONOCYTES # (AUTO) 0.6 /CMM (0.1-1.30); MONOCYTES % (AUTO) 8.7 % (2.0-12.0); NEUTROPHILS # (AUTO) 4.5 /CMM (1.8-8.9); NEUTROPHILS % (AUTO) 71.1 % (43.0-81.0); PLATELET COUNT (AUTO) 269 /CMM (150-450); RED BLOOD CELL COUNT(AUTO) 3.25 MIL/uL (4.5-6.0); WHITE BLOOD COUNT (AUTO) 6.4 K/uL (4.3-11.0)
[2020-04-27] MEDS ORDERED: POTASSIUM PHOSPHATE MM 15 MMOL in IV NS 0.9% 250 ML IV SCH (10:30)
--- NOTE | 2020-04-27 10:44 | NUR ---
Speech therapist came and did swallow eval and the pt keeps spitting out thin liquids and meds with apple sauce and coughed as well. Will notify MD and recommended NPO except ice chips. HOB elevated.
--- NOTE | 2020-04-27 11:16 | NUR ---
PT REFUSED RESP TX ATT. PT FOUND OFF O2. O2 USAGE ENCOURAGED. NO S/S OF SOB NOTED. WILL CONT TO MONITOR Addendum: 04/27/20 at 1117 by FILIPPO GARCIA RT Amended: Links added.
[2020-04-27] MEDS: POTASSIUM PHOSPHATE MM 7.5 MMOL in IV NS 0.9% 100 ML IV SCH ×2 (12:25→14:30)
[2020-04-27] MEDS: PANTOPRAZOLE 40 MG VIAL IV SCH ×2 (12:27→20:34)
[2020-04-27] MEDS: LEVOFLOXACIN (250MG) 250 MG TABLET PO SCH (14:31)
--- NOTE | 2020-04-27 15:53 | NUR ---
PT REFUSED RESP TX ATT. NO S/S OF SOB NOTED. BENEFITS AND CONTRAINDICATIONS EXPLAINED. WILL CONT TO MONITOR Addendum: 04/27/20 at 1554 by FILIPPO GARCIA RT Amended: Links added.
[2020-04-27] MEDS: ATORVASTATIN 40 MG TABLET PO SCH (17:24)
--- NOTE | 2020-04-27 17:24 | NUR ---
PT IS UNABLE TO TAKE ALL PO MEDS AT THIS TIME DUE TO DYSPHAGIA. PT COUGHS EVEN WITH THIN LIQUIDS. GIVEN ICE CHIPS AND INSTRUCTED TO TAKE SMALL AMOUNT AT A TIME.ELEVATED HOB WITH ASPIRATION PRECAUTIONS. AWAITING GI CONSULT WITH DR RITTER FOR EGD AND PEG PLACEMENT PROCEDURE. CONSENT HAS BEEN SIGNED.
--- NOTE | 2020-04-27 17:45 | NUR ---
DR RITTER CALLED AND ORDERED TO OBTAIN CONSENT FOR EGD AND PEG PLACEMENT TOMORROW AND PUT PT NPO POST MIDNIGHT.
--- NOTE | 2020-04-27 19:30 | NUR ---
MS/RN OPENING NOTES RECEIVED PATIENT RESTING IN BED WATCHING TV. PATIENT IS ALERT AND ORIENTED X 3. PATIENT IS ON 3 L OF OXYGEN VIA N/C TOLERATING WELL 93%. NO SIGNS OF SOB OR RESPIRATORY DISTRESS NOTED. BREATHING IS EVEN AND UNLABORED PATIENT STATES NO PAIN AT THIS TIME. PATIENT HAS MURRAY CATH IN PLACE. PATIENT HAS TO PICC IN PLACE, INTACT. SAFETY MEASURES ARE IN PLACE, BED IS LOCKED AND PLACED IN THE LOWEST POSITION. CALL LIGHT IS WITHIN REACH. WILL CONTINUE TO MONITOR THROUGH OUT SHIFT.
[2020-04-27 20:00] VITALS: BP 120/77
--- NOTE | 2020-04-27 21:00 | NUR ---
MS/RN NOTES PATIENT NOT TOLERATING ORAL INTAKE WELL. PM PO MEDS HELD. IV MEDS ADMINISTERED. WILL CONTINUE TO MONITOR.
[2020-04-27] MEDS: TAMSULOSIN 0.4 MG CAP.SR.24H PO SCH (21:42)
[2020-04-28] MEDS: ALBUTEROL HALF STRENGTH 1.25 MG/3 ML VIAL.NEB NEB SCH ×6 (04:01→23:05)
[2020-04-28] MEDS: IPRATROPIUM NEB FS 0.5 MG/2.5 ML AMPUL.NEB NEB SCH ×6 (04:01→23:05)
[2020-04-28] MEDS: LINEZOLID 600 MG TABLET PO SCH ×2 (06:00→18:00)
[2020-04-28 06:36] LABS: BASOPHILS # (AUTO) 0.1 /CMM (0.0-0.2); BASOPHILS % (AUTO) 1.3 % (0.0-2.0); EOSINOPHILS % (AUTO) 2.7 % (0.0-6.0); HEMATOCRIT 27 % (39-51); HEMOGLOBIN 8.8 g/dL (13.5-17.5); LYMPHOCYTES # (AUTO) 1.1 /CMM (0.8-4.8); LYMPHOCYTES % (AUTO) 19.1 % (20.0-44.0); MEAN CORPUSCULAR HGB CONC 33 g/dl (31.0-36.0); MEAN CORPUSCULAR VOLUME 82 fL (80-96); MONOCYTES # (AUTO) 0.7 /CMM (0.1-1.30); MONOCYTES % (AUTO) 11.5 % (2.0-12.0); NEUTROPHILS # (AUTO) 3.7 /CMM (1.8-8.9); NEUTROPHILS % (AUTO) 65.4 % (43.0-81.0); PLATELET COUNT (AUTO) 272 /CMM (150-450); RED BLOOD CELL COUNT(AUTO) 3.23 MIL/uL (4.5-6.0); WHITE BLOOD COUNT (AUTO) 5.7 K/uL (4.3-11.0)
[2020-04-28 06:53] LABS: CALCIUM, SERUM 8.3 mg/dL (8.5-10.1); CREATININE 0.6 mg/dL (0.6-1.3); POTASSIUM 3.4 mmol/L (3.5-5.1)
--- NOTE | 2020-04-28 07:00 | NUR ---
MS/RN CLOSING NOTES PATIENT RESTING IN BED. PATIENT IS ALERT AND ORIENTED X 3. PATIENT IS ON 3 L OF OXYGEN VIA N/C TOLERATING WELL 94%. NO SIGNS OF SOB OR RESPIRATORY DISTRESS NOTED. BREATHING IS EVEN AND UNLABORED PATIENT STATES NO PAIN AT THIS TIME. PATIENT HAS MURRAY CATH IN PLACE OUTPUT 1500CC HEMATURIA. PATIENT HAS TO PICC IN PLACE, INTACT. PATIENT IS NOT TOLERATING ORAL INTAKE WELL, AM PO MED HELD. PATIENT HAS BEEN NPO SINCE MIDNIGHT. ALL PATIENT NEEDS HAVE BEEN MET DURING SHIFT. SAFETY MEASURES ARE IN PLACE, BED IS LOCKED AND PLACED IN THE LOWEST POSITION. CALL LIGHT IS WITHIN REACH. WILL ENDORSE CARE TO DAY SHIFT.
[2020-04-28] MEDS: SUCRALFATE 1 G/10 ML UDC GT SCH ×4 (07:30→21:32)
[2020-04-28 08:00] VITALS: BP 107/67
--- NOTE | 2020-04-28 08:00 | NUR ---
MS/RN OPEN NOTES PATIENT RESTING IN BED. PATIENT IS ALERT AND ORIENTED X 3. PATIENT IS ON 3 L OF OXYGEN VIA N/C TOLERATING WELL 95%. NO SIGNS OF SOB OR RESPIRATORY DISTRESS NOTED. BREATHING IS EVEN AND UNLABORED PATIENT STATES NO PAIN AT THIS TIME. PATIENT HAS MURRAY CATH WITH HEMATURIA. PATIENT HAS TO PICC IN PLACE, INTACT. PATIENT HAS BEEN NPO SINCE MIDNIGHT FOR EGD AND PEG PLACEMENT.CONSENTS HAS BEEN SIGNED. SAFETY MEASURES ARE IN PLACE, BED IS LOCKED AND PLACED IN THE LOWEST POSITION. CALL LIGHT IS WITHIN REACH.
[2020-04-28 08:41] VITALS: BP 168/87
[2020-04-28] MEDS: CALCIUM CARB 600MG /VIT D 1 EACH TABLET PO SCH (08:46)
[2020-04-28] MEDS: Z GUARD REMEDY 2 OZ OINT TP SCH (08:47)
[2020-04-28] MEDS: GABAPENTIN 300 MG CAPSULE PO SCH ×4 (08:47→21:00)
[2020-04-28] MEDS: DOCUSATE SODIUM 250 MG CAPSULE PO SCH (08:47)
[2020-04-28] MEDS: PANTOPRAZOLE 40 MG VIAL IV SCH ×2 (08:50→21:32)
--- NOTE | 2020-04-28 10:00 | NUR ---
SPEECH THERAPIST, FRANCIS DID SWALLOW EVAL WITH THE PT AFTER CHECKING WITH MICHA BECERRIL. NOTIFIED DR RITTER AND O.R. WITH ORDERS TO HOLD THE EGD AND PEG PLACEMENT. PT IS ABLE TO SWALLOW PUREED APPLE SAUCE IN SMALL AMOUNTS AT A TIME AND THIN LIQUID WITH STRAW-WITH ASPIRATION PRECAUTIONS. WILL CONTINUE TO MONITOR.
[2020-04-28] MEDS ORDERED: BARIUM SULFATE 98% 135 ML SUSP.RECON PO ONE (11:06)
--- NOTE | 2020-04-28 11:13 | NUR ---
PT WAS BROUGHT DOWN TO RADIOLOGY FOR ESOPHAGRAM PROCEDURE.
--- NOTE | 2020-04-28 11:26 | NUR ---
WILL ADMINISTER KCL IV WHEN PT COMES BACK FROM RADIOLOGY.
--- NOTE | 2020-04-28 11:53 | NUR ---
PT CAME BACK FROM RADIOLOGY AND ASPIRATED DURING THE ESOPHAGRAM PROCEDURE. NOTIFIED JERRICA JUAN NP AND MADE AWARE.
[2020-04-28] MEDS: POTASSIUM CL. PREMIX PERIPHER. 50 ML IV SCH ×2 (11:58→13:14)
--- NOTE | 2020-04-28 12:00 | NUR ---
NOTIFIED DR RITTER OF PT' ASPIRATING DURING THE ESOPHAGRAM PROCEDURE
[2020-04-28] MEDS: Potassium Chloride 20 MEQ in IV D5/ 0.9% NACL 1,000 ML IV PRN (12:20)
[2020-04-28] MEDS: LEVOFLOXACIN (250MG) 250 MG TABLET PO SCH (15:00)
[2020-04-28 16:00] VITALS: BP 107/62
[2020-04-28 16:02] LABS: HEMOGLOBIN 9.1 g/dL (13.5-17.5)
[2020-04-28] MEDS: ATORVASTATIN 40 MG TABLET PO SCH (18:00)
--- NOTE | 2020-04-28 18:00 | NUR ---
PT RESTING IN BED DENYING ANY Pain OR DISTRESS.WITH ONGOING IVF INFUSION. CALL LIGHT PLACED WITHIN REACH.
--- NOTE | 2020-04-28 19:30 | NUR ---
MS RN OPENING NOTES: RECEIVED PATIENT IN BED, AWAKE, A/O X4. NO SOB NOTED. NO COMPLAIN OF PAIN. CALL LIGHT WITHIN REACH. BED ALARM ON. BED IN LOWEST AND LOCKED POSITION. HOB ELEVATED AT ALL TIMES. NPO, PATIENT IS AWARE. COAL GASIFICATION TECHNICIAN AWARE.
[2020-04-28 20:00] VITALS: BP 110/70
[2020-04-28] MEDS: TAMSULOSIN 0.4 MG CAP.SR.24H PO SCH (21:33)
[2020-04-29] MEDS: Potassium Chloride 20 MEQ in IV D5/ 0.9% NACL 1,000 ML IV PRN ×2 (02:36→16:41)
[2020-04-29] MEDS: IPRATROPIUM NEB FS 0.5 MG/2.5 ML AMPUL.NEB NEB SCH ×6 (03:30→23:30)
[2020-04-29] MEDS: ALBUTEROL HALF STRENGTH 1.25 MG/3 ML VIAL.NEB NEB SCH ×6 (03:30→23:30)
[2020-04-29] MEDS: LINEZOLID 600 MG TABLET PO SCH ×2 (05:06→17:55)
--- NOTE | 2020-04-29 06:51 | NUR ---
MS RN CLOSING NOTES; PATIENT IN BED, ASLEEP, AROUSABLE. NO SOB NOTED. NO COMPLAIN OF PAIN. CALL LIGHT WITHIN REACH. BED ALARM ON. BED IN LOWEST AND LOCKED POSITION. HOB ELEVATED AT 45 DEGREES AT ALL TIMES. RESTED THROUGHOUT THE NIGHT. AFEBRILE. V/S WNL. NPO.WITH RIGHT UPPER ARM TRIPLE LUMEN PICC LINE, INTACT,PATENT, WITH GOOD BLOOD BRISK BLOOD RETURNED, 3 LUMENS FLUSHED WITH NS. WITH MURRAY CATHETER INTACT, DRAINING HEMATURIA.
[2020-04-29] MEDS: SUCRALFATE 1 G/10 ML UDC GT SCH ×4 (07:30→21:09)
--- NOTE | 2020-04-29 07:51 | NUR ---
MS OPENING NOTES PATIENT IS AWAKE A/O X 2. NPO. WITH HEAD OF BED ELEVATED WITH NO SIGNS OF DISTRESS AND NO SOB IN ROOM AIR. R UA PICC LINE INTACT RUNNING D5NS + 20 SCARLETT KCL AT 90 MLS/HR. MURRAY INTACT WITH URINE COLOR YELLOW AND PINK. SAFETY MEASURES ARE APPLIED, BED IN IS LOW POSITION, LOCKED SIDE RAILS UP X 2 FOR SAFETY. CALL LIGHT WITHIN REACH WILL CONTINUE TO MONITOR.
[2020-04-29 07:59] LABS: HEMOGLOBIN 9.5 g/dL (13.5-17.5)
[2020-04-29 08:00] VITALS: BP 106/67
[2020-04-29] MEDS: DOCUSATE SODIUM 250 MG CAPSULE PO SCH (09:00)
[2020-04-29] MEDS: CALCIUM CARB 600MG /VIT D 1 EACH TABLET PO SCH (09:00)
[2020-04-29] MEDS: GABAPENTIN 300 MG CAPSULE PO SCH ×4 (09:00→21:00)
[2020-04-29] MEDS: PANTOPRAZOLE 40 MG VIAL IV SCH ×2 (09:34→21:08)
[2020-04-29] MEDS: Z GUARD REMEDY 2 OZ OINT TP SCH ×2 (09:39→13:44)
--- NOTE | 2020-04-29 09:43 | NUR ---
HELD CARAFATE GT ROUTE PATIENT IS NPO AND NO G-TUBE IS INTACT. PROTONIX WAS GIVEN IV. WILL CONTINUE TO MONITOR.
[2020-04-29] MEDS ORDERED: [UNRECOGNIZED DRUG - OTHER] IV SCH (15:30)
[2020-04-29] MEDS ORDERED: LEVOFLOXACIN IV SCH (15:30)
[2020-04-29 16:00] VITALS: BP 110/71
[2020-04-29] MEDS: LEVOFLOXACIN 750 MG /D5W 150ML 750 MG in PREMIX 1 EA IV SCH (16:31)
[2020-04-29] MEDS: ATORVASTATIN 40 MG TABLET PO SCH (17:55)
--- NOTE | 2020-04-29 18:26 | NUR ---
MS RN CLOSING NOTES PATIENT IS AWAKE A/O X 3. WITH HEAD OF BED ELEVATED WITH NO SIGNS OF DISTRESS AND NO SOB IN ROOM AIR. R UA PICC LINE INTACT RUNNING D5NS + 20 SCARLETT KCL AT 90 MLS/HR. MURRAY INTACT. TOLERATED FOOD WELL. PATIENT REMAINED STABLE THROUGH OUT SHIFT. PATIENT KEPT CLEAN AND DRY. ALL NEEDS, CARE, TREATMENT AND MEDICATIONS ADMINISTERED ANTICIPATED PER ORDER. SAFETY MEASURES ARE APPLIED. BED IS IN LOWEST POSITION LOCKED WITH SIDE RAILS UP X 2 FOR SAFETY. NPO AFTER MIDNIGHT POSSIBLE PROCEDURE TOMORROW. WILL [id number] TO THE NEXT MACHINING ENGINEER.
--- NOTE | 2020-04-29 19:00 | NUR ---
RN MS OPENING NOTES RECEIVED PATIENT IN BED AWAKE ALERT AND ORIENTED X3 ,ABLE TO MAKE NEEDS KNOWN , RESPIRATION EVEN AND UNLABORED WITH EQUAL RISE AND FALL OF CHEST, DENIES ANY PAIN OR DISCOMFORT AT THIS TIME, MURRAY CATHETER INTACT AND DRAINING WELL, RIGHT UPPER ARM PICC LINE INTACT AND PATENT, NO REDNESS, NO INFILTRATION PRESENT, DRESSING IS C/D/I. IVF RUNNING ORDERED, ORIENTED TO STAFF AND CALL LIGHT AND KEPT WITHIN REACH, SAFETY PRECAUTIONS IN PLACE, LOW BED AND LOCKED, BED ALARM IN PLACE, PERINEAL CARE PROVIDED, PATIENT REPOSITIONED HEELS OFFLOADED, WILL CONTINUE TO MONITOR AND ATTEND TO NEEDS.
[2020-04-29 20:00] VITALS: BP 111/64
[2020-04-29] MEDS: TAMSULOSIN 0.4 MG CAP.SR.24H PO SCH (21:09)
[2020-04-30] MEDS: IPRATROPIUM NEB FS 0.5 MG/2.5 ML AMPUL.NEB NEB SCH ×6 (03:30→23:28)
[2020-04-30] MEDS: ALBUTEROL HALF STRENGTH 1.25 MG/3 ML VIAL.NEB NEB SCH ×6 (03:30→23:28)
--- NOTE | 2020-04-30 04:07 | NUR ---
RN MS NOTES PATIENT REFUSED RESPIRATORY TREATMENTS DESPITE EDUCATION PROVIDED, NO SOB, NO DISTRESS PRESENT, REMAINS COMFORTABLE WILL CONTINUE TO MONITOR. PATIENT ALSO REFUSED SCHEDULED PO MEDS PRIOR TO NPO STATUS, DESPITE EDUCATION.
[2020-04-30] MEDS: LINEZOLID 600 MG TABLET PO SCH (05:20)
[2020-04-30] MEDS: Potassium Chloride 20 MEQ in IV D5/ 0.9% NACL 1,000 ML IV PRN ×2 (05:33→22:21)
--- NOTE | 2020-04-30 06:39 | NUR ---
RN MS CLOSING NOTES PATIENT IN BED AWAKE ALERT AND ORIENTED X3 ,ABLE TO MAKE NEEDS KNOWN , RESPIRATION EVEN AND UNLABORED WITH EQUAL RISE AND FALL OF CHEST, DENIES ANY PAIN OR DISCOMFORT AT THIS TIME, MURRAY CATHETER INTACT AND DRAINING WELL, NOTED PINK TINGED, RIGHT UPPER ARM PICC LINE INTACT AND PATENT, NO REDNESS, NO INFILTRATION PRESENT, DRESSING IS C/D/I. IVF RUNNING ORDERED, CALL LIGHT KEPT WITHIN REACH, SAFETY PRECAUTIONS IN PLACE, LOW BED AND LOCKED, BED ALARM IN PLACE, PERINEAL CARE PROVIDED, BARRIER CREAM APPLIED TO SACRAL REDNESS AND ENCOURAGED OFFLOADING, REPOSITIONED HEELS OFFLOADED, WILL CONTINUE TO MONITOR AND ATTEND TO NEEDS AND ENDORSE TO NEXT SHIFT. REMAINS NPO ORDERED.
[2020-04-30 07:16] LABS: BASOPHILS # (AUTO) 0.1 /CMM (0.0-0.2); EOSINOPHILS % (AUTO) 1.9 % (0.0-6.0); HEMATOCRIT 26 % (39-51); HEMOGLOBIN 8.7 g/dL (13.5-17.5); LYMPHOCYTES # (AUTO) 1.4 /CMM (0.8-4.8); MEAN CORPUSCULAR HGB CONC 33 g/dl (31.0-36.0); MEAN CORPUSCULAR VOLUME 82 fL (80-96); MONOCYTES # (AUTO) 0.7 /CMM (0.1-1.30); NEUTROPHILS # (AUTO) 3.4 /CMM (1.8-8.9); NEUTROPHILS % (AUTO) 60.1 % (43.0-81.0); PLATELET COUNT (AUTO) 264 /CMM (150-450); RED BLOOD CELL COUNT(AUTO) 3.21 MIL/uL (4.5-6.0); WHITE BLOOD COUNT (AUTO) 5.7 K/uL (4.3-11.0)
[2020-04-30] MEDS: SUCRALFATE 1 G/10 ML UDC GT SCH ×5 (07:30→22:21)
--- NOTE | 2020-04-30 07:34 | NUR ---
MS OPENING NOTES PATIENT IS AWAKE A/O X 2. NPO. WITH HEAD OF BED ELEVATED WITH NO SIGNS OF DISTRESS AND NO SOB IN ROOM AIR. R UA PICC LINE INTACT RUNNING D5NS + 20 SCARLETT KCL AT 90 MLS/HR. MURRAY INTACT. NO COMPLAIN OF PAIN OR DISCOMFORT AT THIS MOMENT. SAFETY MEASURES ARE APPLIED, BED IN IS LOW POSITION, LOCKED SIDE RAILS UP X 2 FOR SAFETY. CALL LIGHT WITHIN REACH WILL CONTINUE TO MONITOR.
[2020-04-30 07:51] LABS: BILIRUBIN,TOTAL 0.2 mg/dL (0.2-1.0); CALCIUM, SERUM 7.7 mg/dL (8.5-10.1); CREATININE 0.7 mg/dL (0.6-1.3); MAGNESIUM 1.7 mg/dL (1.8-2.4); PHOSPHORUS 2.4 mg/dL (2.5-4.9); POTASSIUM 3.8 mmol/L (3.5-5.1); TOTAL PROTEIN, SERUM 6.5 g/dL (6.4-8.2)
[2020-04-30 08:00] VITALS: BP 106/67
[2020-04-30] MEDS: PANTOPRAZOLE 40 MG VIAL IV SCH ×2 (09:00→22:20)
[2020-04-30] MEDS: CALCIUM CARB 600MG /VIT D 1 EACH TABLET PO SCH (09:00)
[2020-04-30] MEDS: DOCUSATE SODIUM 250 MG CAPSULE PO SCH (09:00)
[2020-04-30] MEDS: GABAPENTIN 300 MG CAPSULE PO SCH ×5 (09:00→22:21)
--- NOTE | 2020-04-30 09:00 | NUR ---
PATIENT REFUSED ALL PO MEDS AND PROTONIX IVP WELL AFTER EXPLAINING THE BENEFITS AND RISK HE STILL REFUSED MEDICATIONS. WILL CONTINUE TO MONITOR.
[2020-04-30] MEDS: Z GUARD REMEDY 2 OZ OINT TP SCH ×2 (09:10)
[2020-04-30] MEDS ORDERED: POTASSIUM PHOSPHATE MM 15 MMOL in IV NS 0.9% 250 ML IV SCH (09:30)
[2020-04-30] MEDS ORDERED: Sodium Phosphate 15 MMOL in IV NS 0.9% 245 ML IV SCH (09:30)
[2020-04-30] MEDS: Magnesium 1GM/D5W 100ML PREMIX 100 ML IV SCH ×2 (09:45→11:03)
[2020-04-30] MEDS ORDERED: Sodium Phosphate 15 MMOL in IV NS 0.9% 95 ML IV SCH (10:00)
--- NOTE | 2020-04-30 10:30 | NUR ---
PATIENT REFUSED RT TREATMENT AFTER EXPLAINING THE BENEFITS AND RISK HE STILL REFUSED RT TREATMENT. WILL CONTINUE TO MONITOR.
--- NOTE | 2020-04-30 14:00 | NUR ---
JERRICA MUSE IS AWARE OF PATIENTS PO MED REFUSALS AND RT TREATMENT.
[2020-04-30] MEDS: LEVOFLOXACIN 750 MG /D5W 150ML 750 MG in PREMIX 1 EA IV SCH (15:45)
[2020-04-30 16:00] VITALS: BP 94/57
[2020-04-30] MEDS: ATORVASTATIN 40 MG TABLET PO SCH (18:00)
--- NOTE | 2020-04-30 19:20 | NUR ---
MS RN OPENING NOTES: RECEIVED PATIENT IN BED, AWAKE, A/O X3. HOB ELEVATED AT ALL TIMES. NO SOB NOTED, NO COMPLAIN OF PAIN. CALL LIGHT WITHIN REACH. BED ALARM ON. BED IN LOWEST AND LOCKED POSITION.WITH MURRAY CATHETER INTACT, SECURED WITH THE TAPE, WITH CLEAR YELLOW URINE OUTPUT. WITH RIGHT UPPER ARM PICC LINE 3LUMEN,INTACT. ON NPO EXCEPT MEDS. NPO POST MN FOR EGD AND POSSIBLE PEG PLACEMENT TOMORROW, CONSENT ALREADY SIGNED AND ATTACHED TO THE CHART. CONTACT ISOLATION FOR VRE OF THE URINE, OBSERVED AT ALL TIMES.
--- NOTE | 2020-04-30 19:27 | NUR ---
MS RN CLOSING NOTES PATIENT IS AWAKE A/O X 2. NPO. WITH HEAD OF BED ELEVATED WITH NO SIGNS OF DISTRESS AND NO SOB IN ROOM AIR. R UA PICC LINE INTACT RUNNING D5NS + 20 SCARLETT KCL AT 90 MLS/HR. MURRAY INTACT. NO COMPLAIN OF PAIN OR DISCOMFORT AT THIS MOMENT. PATIENT REMAINED STABLE THROUGH OUT SHIFT. PATIENT KEPT CLEAN AND DRY. ALL NEEDS, CARE, TREATMENT AND MEDICATIONS ADMINISTERED ANTICIPATED PER ORDER. SAFETY MEASURES ARE APPLIED, BED IS IN LOW POSITION WITH SIDE RAILS UP X 2 FOR SAFETY. CALL LIGHT WITHIN REACH. WILL ENDORSE TO THE ADVERTISING ANALYST NURSE. CONSENTS FOR PROCEDURE SIGNED AND ENDORSED TO ADVERTISING ANALYST NURSE.
[2020-04-30 20:00] VITALS: BP 106/69
[2020-04-30] MEDS: TAMSULOSIN 0.4 MG CAP.SR.24H PO SCH ×2 (22:00→22:21)
--- NOTE | 2020-04-30 22:40 | NUR ---
NOTED HEMATURIA AT THIS TIME. PATIENT REFUSED HIS PO MEDS, INFORMED DR ELDRIDGE.
--- NOTE | 2020-05-01 01:00 | NUR ---
PATIENT'S MURRAY CATH OUTPUT IS BECOMING PINKISH URINE OUTPUT. PATIENT IS ASLEEP AT THIS TIME. WILL MONITOR.
--- NOTE | 2020-05-01 02:30 | NUR ---
PATIENT'S MURRAY CATHETER HAS YELLOWISH URINE OUTPUT NOW.
[2020-05-01] MEDS: ALBUTEROL HALF STRENGTH 1.25 MG/3 ML VIAL.NEB NEB SCH ×6 (03:30→23:55)
[2020-05-01] MEDS: IPRATROPIUM NEB FS 0.5 MG/2.5 ML AMPUL.NEB NEB SCH ×6 (03:30→23:55)
--- NOTE | 2020-05-01 06:21 | NUR ---
MS RN CLOSING NOTES: PATIENT IN BED, ASLEEP, AROUSABLE. NO SOB NOTED. NO COMPLAIN OF PAIN. CALL LIGHT WITHIN REACH. BED ALARM ON. BED IN LOWEST AND LOCKED POSITION. HOB ELEVATED AT ALL TIMES. WITH MURRAY CATHETER INTACT, DRAINING CLEAR YELLOW URINE OUTPUT AT THIS TIME. NO HEMATURIA NOTED. NPO POST MN.
[2020-05-01 06:49] LABS: BASOPHILS # (AUTO) 0.1 /CMM (0.0-0.2); BASOPHILS % (AUTO) 1.3 % (0.0-2.0); EOSINOPHILS % (AUTO) 2.3 % (0.0-6.0); HEMATOCRIT 30 % (39-51); HEMOGLOBIN 9.6 g/dL (13.5-17.5); LYMPHOCYTES # (AUTO) 1.5 /CMM (0.8-4.8); LYMPHOCYTES % (AUTO) 30.8 % (20.0-44.0); MEAN CORPUSCULAR HGB CONC 32 g/dl (31.0-36.0); MEAN CORPUSCULAR VOLUME 82 fL (80-96); MONOCYTES # (AUTO) 0.7 /CMM (0.1-1.30); MONOCYTES % (AUTO) 13.7 % (2.0-12.0); NEUTROPHILS # (AUTO) 2.5 /CMM (1.8-8.9); NEUTROPHILS % (AUTO) 51.9 % (43.0-81.0); PLATELET COUNT (AUTO) 263 /CMM (150-450); RED BLOOD CELL COUNT(AUTO) 3.59 MIL/uL (4.5-6.0); WHITE BLOOD COUNT (AUTO) 4.9 K/uL (4.3-11.0)
--- NOTE | 2020-05-01 07:00 | NUR ---
MS RN OPENING NOTE RECEIVED PT AWAKE IN BED AT THIS TIME. A/O X 2-3, NO SOB NOTED, NO S/S OF ANY ACUTE DISTRESS NOTED. NO C/O PAIN AT THIS TIME. RESPIRATIONS ARE EVEN AND UNLABORED WITH EQUAL RISE AND FALL IN CHEST. PT ABLE TO VERBALIZE NEEDS. TO PICC LINE PATENT, INTACT AND FLUSHING WELL. FC IN PLACE DRAINING TO GRAVITY CLEAR YELLOW URINE OUTPUT. FALL AND SAFETY PRECAUTION IN PLACE AND MAINTAINED AT ALL TIMES. BED IN LOWEST LOCKED POSITION, HOB ELEVATED, RAILS UP X 2, CALL LIGHT WITHIN REACH. WILL CONTINUE TO MONITOR
[2020-05-01 07:07] LABS: CALCIUM, SERUM 8.4 mg/dL (8.5-10.1); CREATININE 0.7 mg/dL (0.6-1.3); POTASSIUM 3.8 mmol/L (3.5-5.1)
[2020-05-01] MEDS: SUCRALFATE 1 G/10 ML UDC GT SCH ×4 (07:30→21:21)
[2020-05-01 08:00] VITALS: BP 106/60
[2020-05-01] MEDS: PANTOPRAZOLE 40 MG VIAL IV SCH ×2 (08:04→21:21)
[2020-05-01] MEDS: GABAPENTIN 300 MG CAPSULE PO SCH ×4 (09:00→21:21)
[2020-05-01] MEDS: DOCUSATE SODIUM 250 MG CAPSULE PO SCH (09:00)
[2020-05-01] MEDS: CALCIUM CARB 600MG /VIT D 1 EACH TABLET PO SCH (09:00)
[2020-05-01] MEDS: Z GUARD REMEDY 2 OZ OINT TP SCH ×2 (10:15)
--- NOTE | 2020-05-01 12:56 | NUR ---
PT TRANSPORTED BY BED AT THIS TIME WITH O2 IN PLACE FOR EGD WITH PEG PLACEMENT. WILL CONTINUE WITH PLAN OF CARE
--- NOTE | 2020-05-01 14:10 | NUR ---
MS RN NOTES Patient returned from OR at this time. Patient in stable condition. VS stable with no acute distress. Breathing even and unlabored on 2LPM via NC. Denies pain. No signs and symptoms of pain. GTube in place. Will continue to monitor.
--- NOTE | 2020-05-01 14:15 | NUR ---
PT TRANSPORTED BY TO UNIT BY BED AT THIS TIME FROM [facility] WITH PEG PLACEMENT. PEG SITE. CLEAN AND DRY. VS WNL. PER DR RITTER, PEG CAN BE USED FOR WATER AND MEDS IN 4HOURS, PEG CAN BE USED FOR TUBE FEEDING TOMORROW AM AND RESUME PREVIOUS MEDS. WILL CARRY OUT ORDERS AND CONTINUE TO MONITOR Addendum: 05/01/20 at 1845 by SUNDAY MICHAUD RN PT TRANSPORTED BACK TO ROOM/UNIT BY BED AT THIS TIME FROM D WITH PEG PLACEMENT. PEG SITE. CLEAN AND DRY. VS WNL. PER DR RITTER, PEG CAN BE USED FOR WATER AND MEDS IN 4HOURS, PEG CAN BE USED FOR TUBE FEEDING TOMORROW AM AND RESUME PREVIOUS MEDS. WILL CARRY OUT ORDERS AND CONTINUE TO MONITOR
[2020-05-01] MEDS: LEVOFLOXACIN 750 MG /D5W 150ML 750 MG in PREMIX 1 EA IV SCH (15:56)
[2020-05-01 16:00] VITALS: BP 106/56
[2020-05-01 17:00] LABS: HEMOGLOBIN 9.5 g/dL (13.5-17.5)
[2020-05-01] MEDS: ATORVASTATIN 40 MG TABLET PO SCH (17:19)
--- NOTE | 2020-05-01 18:37 | NUR ---
MS RN CLOSING NOTES PT AWAKE IN BED AT THIS TIME. PT REMAINED STABLE THROUGHOUT SHIFT. PT KEPT CLEAN AND DRY. ALL CARE, NEEDS, MEDICATION AND TREATMENT ADMINISTERED ANTICIPATED PER ORDER. FC CARE PROVIDED. PT SUCTIONED NEEDED. PT REPOSITIONED PRN. ASPIRATION AND SAFETY PRECAUTION IN PLACE AND MAINTAINED AT ALL TIMES. BED IN LOWEST LOCKED POSITION, HOB ELEVATED, RAILS UP X 2, CALL LIGHT WITHIN REACH. WILL ENDORSE TO SOLAR INSTALLATION TECHNICIAN NURSE FOR AMRIK
[2020-05-01 20:00] VITALS: BP 111/59
--- NOTE | 2020-05-01 20:15 | NUR ---
MS/RN OPENING NOTE Patient awake in bed, A/O x2, bedbound. HOB elevated. Patient denies pain. Afebrile. Breathing even, clear, unlabored, on room air. Skin warm, dry, appropriate for ethnicity. Abdomen soft, round, non-tender. Bowel sounds normoactive in all quadrants. G-tube in place, site clean, dry, intact. Sacral redness noted, covered with mepilex. Michael catheter in place, draining clear, yellow urine. TO picc line clean, dry, intact and patent. No signs of redness or infiltration. Bed in low position, wheels locked, side rails up x2, call light within reach.
[2020-05-01] MEDS: TAMSULOSIN 0.4 MG CAP.SR.24H PO SCH (21:21)
[2020-05-01 21:42] VITALS: BP 111/59
[2020-05-01] MEDS: Potassium Chloride 20 MEQ in IV D5/ 0.9% NACL 1,000 ML IV PRN (23:14)
[2020-05-02] MEDS: IPRATROPIUM NEB FS 0.5 MG/2.5 ML AMPUL.NEB NEB SCH ×5 (03:30→15:07)
[2020-05-02] MEDS: ALBUTEROL HALF STRENGTH 1.25 MG/3 ML VIAL.NEB NEB SCH ×4 (03:30→15:07)
[2020-05-02] MEDS: SUCRALFATE 1 G/10 ML UDC GT SCH ×2 (06:52→14:22)
--- NOTE | 2020-05-02 07:04 | NUR ---
MS/RN CLOSING NOTE Patient awake in bed, A/O x2, bedbound. HOB elevated. Breathing even, clear, unlabored, on room air. Skin warm, dry, appropriate for ethnicity. Abdomen soft, round, non-tender. Bowel sounds normoactive in all quadrants. G-tube in place, site clean, dry, intact. Sacral redness noted. Michael catheter in place, draining clear, yellow urine, 1100 ml. TO picc line clean, dry, intact and patent. No signs of redness or infiltration. Bed in low position, wheels locked, side rails up x2, call light within reach.
--- NOTE | 2020-05-02 07:15 | NUR ---
ms rn received patient on bed, awake, alert,oriented x3,not in any form of distress, respirations even and unlabored,no sob noted, lungs are diminished,abdomen soft,positive bowel sounds, gtube intact,castro to gravity,denies pain at this time,all needs attended.will monitor patient's condition.
[2020-05-02 08:00] VITALS: BP 100/64
[2020-05-02] MEDS: GABAPENTIN 300 MG CAPSULE PO SCH ×2 (08:17→14:23)
[2020-05-02] MEDS: PANTOPRAZOLE 40 MG VIAL IV SCH (08:17)
[2020-05-02] MEDS: DOCUSATE SODIUM 250 MG CAPSULE PO SCH (08:17)
[2020-05-02] MEDS: CALCIUM CARB 600MG /VIT D 1 EACH TABLET PO SCH (08:17)
--- NOTE | 2020-05-02 09:20 | NUR ---
ms rn due meds given,via g tube, tolerated well w/o residual.
--- NOTE | 2020-05-02 11:00 | NUR ---
ms rn was seen by dr. mena w/ justina to be transferred to [facility] today.
[2020-05-02] MEDS ORDERED: JEVITY 1.2 CAL 1,000 ML BOTTLE GT PRN (12:00)
--- NOTE | 2020-05-02 12:10 | NUR ---
ms rn started g tube feeding of jevity 1.2 at 25ml/ hour, tolerated well.
--- NOTE | 2020-05-02 15:20 | NUR ---
ms rn patient was transferred to [facility], report given to karolina Atkinson, no distress noted,all needs attended.
[2020-05-02] MEDS: LEVOFLOXACIN 750 MG /D5W 150ML 750 MG in PREMIX 1 EA IV SCH (15:39)
[2020-05-02 16:00] VITALS: BP 99/60
== END 2020-05-02 17:15 | DRG 720 ==
LOC: ER 09:11 → MED 14:42 → ICU 04-13 14:38 → TELE 04-15 17:27 → MED 04-16 08:30
PROVIDERS: ADMIT Nurse Practitioner Acute Care; ATTEND Internal Medicine
PROC: 0DB98ZX Excision of Duodenum, Via Natural or Artificial Opening Endoscopic, Diagnostic (ICD-10-PCS; principal; 2020-04-10)
PROC: 0DB68ZX Excision of Stomach, Via Natural or Artificial Opening Endoscopic, Diagnostic (ICD-10-PCS; principal; 2020-04-10)
PROC: 02HV33Z Insertion of Infusion Device into Superior Vena Cava, Percutaneous Approach (ICD-10-PCS; 2020-04-13)
PROC: B548ZZA Ultrasonography of Superior Vena Cava, Guidance (ICD-10-PCS; 2020-04-13)
PROC: 30233N1 Transfusion of Nonautologous Red Blood Cells into Peripheral Vein, Percutaneous Approach (ICD-10-PCS; 2020-04-15)
PROC: 0DH63UZ Insertion of Feeding Device into Stomach, Percutaneous Approach (ICD-10-PCS; 2020-05-01)
DX: A41.9 Sepsis, unspecified organism (principal); N40.1 Benign prostatic hyperplasia with lower urinary tract symptoms; D68.59 Other primary thrombophilia; E78.5 Hyperlipidemia, unspecified; I25.10 Atherosclerotic heart disease of native coronary artery without angina pectoris; K21.9 Gastro-esophageal reflux disease without esophagitis; N40.0 Benign prostatic hyperplasia without lower urinary tract symptoms; N13.8 Other obstructive and reflux uropathy; I10 Essential (primary) hypertension; E87.1 Hypo-osmolality and hyponatremia; J18.9 Pneumonia, unspecified organism; G93.41 Metabolic encephalopathy; E87.2 Acidosis; R65.21 Severe sepsis with septic shock; R33.8 Other retention of urine; E87.6 Hypokalemia; D62 Acute posthemorrhagic anemia; K21.0 Gastro-esophageal reflux disease with esophagitis; K29.70 Gastritis, unspecified, without bleeding; K56.7 Ileus, unspecified; K56.609 Unspecified intestinal obstruction, unspecified as to partial versus complete obstruction; F03.90 Unspecified dementia, unspecified severity, without behavioral disturbance, psychotic disturbance, mood disturbance, and anxiety; F32.9 Major depressive disorder, single episode, unspecified; K44.9 Diaphragmatic hernia without obstruction or gangrene; R13.10 Dysphagia, unspecified; Z90.5 Acquired absence of kidney; Z87.440 Personal history of urinary (tract) infections; N17.0 Acute kidney failure with tubular necrosis; Z79.01 Long term (current) use of anticoagulants; K26.4 Chronic or unspecified duodenal ulcer with hemorrhage; Z79.82 Long term (current) use of aspirin; Z79.899 Other long term (current) drug therapy; I70.0 Atherosclerosis of aorta; I69.354 Hemiplegia and hemiparesis following cerebral infarction affecting left non-dominant side; N13.30 Unspecified hydronephrosis; G62.9 Polyneuropathy, unspecified; E87.0 Hyperosmolality and hypernatremia; J98.11 Atelectasis; J90 Pleural effusion, not elsewhere classified; N32.89 Other specified disorders of bladder; K31.4 Gastric diverticulum; B96.89 Other specified bacterial agents as the cause of diseases classified elsewhere; N30.91 Cystitis, unspecified with hematuria; N02.9 Recurrent and persistent hematuria with unspecified morphologic changes; K59.00 Constipation, unspecified; K63.9 Disease of intestine, unspecified; B95.2 Enterococcus as the cause of diseases classified elsewhere; Z74.09 Other reduced mobility
CPT/HCPCS: 31720; 36415; 43246; 71045-TC; 71270-TC; 74018; 74178; 74230-TC; 76770-TC; 76856-TC; 80048-TC; 80053-TC; 80061-TC; 81000-TC; 82248-TC; 82272-TC; 82436-TC; 82533; 82550-TC; 82570-TC; 82728-TC; 83540-TC; 83605-TC; 83735-TC; 83935-TC; 83970; 84100-TC; 84133-TC; 84155; 84155-TC; 84165; 84300-TC; 84484-TC; 85025-TC; 85027-TC; 85610-TC; 85730-TC; 86706; 86803; 86850-TC; 86921-TC; 87040-TC; 87070-TC; 87081-TC; 87086-TC; 87186-TC; 87340; 88305-TC; 88313-TC; 88342; 92521; 92526; 92611-TC; 93307-TC; 94799-TC; A4216; A4217; A6403; A9563; C1751; C9113; G0378; J0690; J0696; J1720; J1956; J2020; J2405; J2543; J2704; J2916; J3475; J3480; J3490; J7030; J7040; J7042; J7050; J7060; P9016-BL; Q9963; Q9967

== ENCOUNTER 2021-04-16 01:37 | Inpatient (IN) | payer MEDICAID ==
[~2021-04-16] VITALS: Ht 172.7 cm; Wt 74.4 kg
[2021-04-16] VITALS (35 sets, daily range): BP systolic 64–116; BP diastolic 32–90
--- NOTE | 2021-04-16 02:07 | NUR ---
blood colllected and sent to the lab
[2021-04-16 02:17] LABS: BASOPHILS % (AUTO) 0.1 % (0.0-2.0); EOSINOPHILS % (AUTO) 0.1 % (0.0-6.0); HEMATOCRIT 40 % (39-51); HEMOGLOBIN 13.5 g/dL (13.5-17.5); LYMPHOCYTES # (AUTO) 0.6 K/uL (0.8-4.8); LYMPHOCYTES % (AUTO) 2.6 % (20.0-44.0); MEAN CORPUSCULAR HGB CONC 33 g/dl (31.0-36.0); MEAN CORPUSCULAR VOLUME 82 fL (80-96); MONOCYTES # (AUTO) 2.5 K/uL (0.1-1.30); MONOCYTES % (AUTO) 10.1 % (2.0-12.0); NEUTROPHILS # (AUTO) 21.2 K/uL (1.8-8.9); NEUTROPHILS % (AUTO) 87.1 % (43.0-81.0); PLATELET COUNT (AUTO) 257 K/uL (150-450); RED BLOOD CELL COUNT(AUTO) 4.94 MIL/uL (4.5-6.0); WHITE BLOOD COUNT (AUTO) 24.3 K/uL (4.3-11.0)
--- NOTE | 2021-04-16 02:22 | NUR ---
COVID SWAB COLLECTED AND SENT TO THE LAB.
[2021-04-16 02:25] LABS: CALCIUM, SERUM 10.1 mg/dL (8.5-10.1); CREATININE 2.8 mg/dL (0.6-1.3)
--- NOTE | 2021-04-16 02:36 | NUR ---
CALLED PT BROTHER, NO ANSWER AT THIS TIME.
--- NOTE | 2021-04-16 02:41 | NUR ---
JULISSA CAIN ON PHONE CALL WITH PT BROTHER YODIT.
--- NOTE | 2021-04-16 03:12 | NUR ---
JULISSA CAIN TALKING TO DR. JOSEPH REGARDING PT ADMISSION.
--- NOTE | 2021-04-16 03:23 | NUR ---
REPORT GIVEN TO GOPI NAGEL
--- NOTE | 2021-04-16 03:37 | NUR ---
PATIENT TRANSFERRED TO ROOM 120, PT IN NO ACUTE DISTRESS.
--- NOTE | 2021-04-16 03:45 | NUR ---
MS RN NOTE ADMITTED PT FROM ER WITH SEPSIS AND GI BLEED. PT IS AMS. RESPONDS TO PAINFUL STIMULI. ON 10 L NRB MASK O2 SAT 100%. SKIN IS PALE. PER ER NURSE PT IS DNR/DNI. SKIN ASSESSMENT DONE. PICTURES TAKEN AND PLACE THEM IN THE CHART. RAC # 20 G SL AND RT HAND #20 G SL INTACT AND PATNET. GT INTACT AND PATENT. PT WITH RASH ON HIS ENTIRE BACK. WAITING FOR ADMITTING ORDERS. BED BATH GIVEN. SIDE RAILS UP X 3 AND CALL LIGHT WITHIN REACH. VSS. CONTINUE TO MONITOR HIM.
--- NOTE | 2021-04-16 05:00 | NUR ---
MS RN NOTE DR SUNSHINE REMINDED ABOUT ADMITTING ORDERS, PER MD PT IS DNR/DNI FOR NOW, WILL INPUT ORDERS LATER.
[2021-04-16] MEDS ORDERED: MORPHINE SULFATE INJ 2 MG/ML DISP.SYRIN IV PRN ×2 (07:00→13:00)
--- NOTE | 2021-04-16 07:05 | NUR ---
RN OPENING NOTES RECEIVED PT IN BED, OBTUNDED. ON 10L O2 VIA NRB. NO SOB OR ANY S/S OF RESPIRATORY DISTRESS NOTED. GT IN PLACE. POSITIVE PLACEMENT CHECKED BY AUSCULTATION. GT CLAMPED. IV ACCESS INTACT AND FLUSHING WELL. SAFETY MEASURES IN PLACE. CALL LIGHT WITHIN REACH. BED LOCKED AND IN LOWEST POSITION WITH SIDE RAILS UP X3. WILL CONTINUE TO MONITOR.
[2021-04-16] MEDS ORDERED: SCOPOLAMINE PATCH 1 MG/72HR TD SCH (12:00)
[2021-04-16] MEDS ORDERED: LORAZEPAM INJ 2 MG/ML VIAL IV PRN ×2 (12:00→12:30)
[2021-04-16] MEDS ORDERED: IV NS 0.9% 500 ML IV ONE ×3 (12:00→16:00)
[2021-04-16] MEDS ORDERED: VANCOMYCIN 1 GM in IV D5W 250ml IV ONE (13:00)
[2021-04-16] MEDS ORDERED: IV LR 1000 ML 1,000 ML IV PRN (13:30)
[2021-04-16] MEDS: ALBUTEROL FS 2.5 MG/0.5 ML VIAL.NEB NEB SCH ×3 (13:30→20:01)
[2021-04-16] MEDS ORDERED: IV NS 0.9% 1,000 ML IV ONE (13:30)
[2021-04-16] MEDS: IPRATROPIUM NEB FS 0.5 MG/2.5 ML AMPUL.NEB NEB SCH ×3 (13:30→20:01)
[2021-04-16] MEDS: PANTOPRAZOLE 40 MG VIAL IV SCH ×2 (13:43→17:24)
[2021-04-16] MEDS ORDERED: ZOSYN IVPB 2.25 G in IV D5W 50ml IV SCH (14:00)
[2021-04-16 14:33] LABS: ALANINE AMINOTRANSFERASE 17 U/L (12-78); ALBUMIN 2.5 g/dL (3.4-5.0); ALKALINE PHOSPHATASE 73 U/L (46-116); ASPARTATE AMINOTRANSFERASE 12 U/L (15-37); BILIRUBIN,TOTAL 0.4 mg/dL (0.2-1.0); CALCIUM, SERUM 9.3 mg/dL (8.5-10.1); CARBON DIOXIDE 19 mmol/L (21-32); CHLORIDE 103 mmol/L (98-107); CREATININE 4.5 mg/dL (0.6-1.3); GLUCOSE 182 mg/dL (74-106); SODIUM SERUM 140 mmol/L (136-145); TOTAL PROTEIN, SERUM 7.3 g/dL (6.4-8.2)
[2021-04-16] MEDS: ZOSYN IVPB 3.375 G in IV D5W 50ml IV SCH ×2 (14:38→20:00)
[2021-04-16 14:39] LABS: UREA NITROGEN, BLOOD 93 mg/dL (7-18)
[2021-04-16] MEDS: IV NS 0.9% 1,000 ML IV SCH (14:47)
[2021-04-16] MEDS ORDERED: NOREPINEPHRINE 8 MG in IV NS 0.9% 242 ML IV PRN (16:00)
--- NOTE | 2021-04-16 16:25 | NUR ---
RN NOTES RECEIVED PT IN ROOM 257, PT IS OBTUNDED , NON VERBAL , DOES NOT FOLLOW COMMAND, ON TELE ST, HR IN 140'S, BP 70/46 AT THIS TIME, PT IS DNR / DNI PER FAMILY REQUEST, PT ON NON REBREATHER MASK, O2 SAT IN HIGH 90' , MURRAY DRAINING TO GRAVITY, R AC AND R HAND IV SITES G 20 CLEAN, DRY AND INTACT, PT RECEIVING BOLUS IV FLUID AT THIS TIME, CONTINUE TO MONITOR.
--- NOTE | 2021-04-16 16:32 | NUR ---
RN NOTES TRANSFERRED PT TO ICU BED 257 PER PROTOCOL. REPORT GIVEN TO CHERI NAGEL FOR AMRIK.
[2021-04-16 17:20] LABS: BILIRUBIN,DIRECT 0.1 mg/dL (0.0-0.2)
[2021-04-16] MEDS: PHENYLEPHRINE 50 MG in IV NS 0.9% 245 ML IV PRN ×2 (17:41→22:07)
--- NOTE | 2021-04-16 17:41 | NUR ---
RN NOTES HEART RATE IN 150'S , BODY STRAIGHTENER NOTIFIED , LEVO DRIP CHANGED TO JO DRIP PER BODY STRAIGHTENER ORDER .
--- NOTE | 2021-04-16 18:30 | NUR ---
RN NOTES PT ON JO AT 3 MCG/KG/MIN, BP STILL LOW , RESEARCH MANAGER NOTIFIED, ORDER RECEIVED FOR VASOPRESSIN DRIP .
--- NOTE | 2021-04-16 19:00 | NUR ---
RN NOTES REPORT GIVEN TO PM NURSE FOR CONTINUITY OF CARE
[2021-04-16] MEDS: VASOPRESSIN INJ 40 UNIT in IV NS 0.9% 38 ML IV PRN (19:18)
--- NOTE | 2021-04-16 20:00 | NUR ---
Received patient obtunded tachypneic hi 30's-low 40's,tachycardic 130's and hemodynamically unstable.DNR/DNI status.Dx: SEPSIS,GIB.Patient on 10L NRB mask saturation 96 %-98%.Max out on Isai Synephrine gtt at 3 mcg and Vasopressin gtt at 0.04 nits/min infusing via TO PICC LINE and site intact.GT clamped.FC to gravity.Closely monitored.Turned and repositioned.
[2021-04-16] MEDS ORDERED: MEROPENEM 500 MG VIAL IV ONE (21:25)
[2021-04-16] MEDS: MEROPENEM 500 MG in IV NS 0.9% 50 ML IV SCH (21:30)
--- NOTE | 2021-04-16 22:00 | NUR ---
Patient remains hemodynamically unstable.Continued on same pressors both max rate.Desaturate to 91% and tachypneic 40's. O2 NRB mask increased to 15L.Incontinent of stool.kept clean and dry.Bed bath rendered.All linens changed.Turned and repositioned.
[2021-04-17] VITALS (96 sets, daily range): BP systolic 64–237; BP diastolic 16–93
[2021-04-17] MEDS: IV NS 0.9% 1,000 ML IV SCH ×3 (01:04→20:31)
[2021-04-17] MEDS: ALBUTEROL FS 2.5 MG/0.5 ML VIAL.NEB NEB SCH ×4 (01:30→19:48)
[2021-04-17] MEDS: IPRATROPIUM NEB FS 0.5 MG/2.5 ML AMPUL.NEB NEB SCH ×4 (01:30→19:48)
--- NOTE | 2021-04-17 01:43 | NUR ---
Patient HR 160'S, RR 45-48 SBP 95 called to with orders received and carried out.
[2021-04-17] MEDS: PHENYLEPHRINE 50 MG in IV NS 0.9% 245 ML IV PRN ×3 (01:48→09:32)
[2021-04-17] MEDS ORDERED: MORPHINE SULFATE INJ 2 MG/ML DISP.SYRIN IV PRN (02:00)
[2021-04-17 03:57] LABS: COLOR,URINE AMBER (YELLOW)
[2021-04-17 03:58] LABS: PH,URINE 6.5 (5.0-8.0); PROTEIN,URINE 3+ mg/dl (NEGATIVE)
[2021-04-17 03:59] LABS: BILIRUBIN,URINE NEGATIVE (NEGATIVE); LEUKOCYTE ESTERASE ,URINE 3+ (NEGATIVE); NITRITE, URINE NEGATIVE (NEGATIVE); UGLUCOSE NEGATIVE (NEGATIVE); UROBILINOGEN,URINE 0.2 EU/dL (0.2)
[2021-04-17 04:01] LABS: BACTERIA,URINE Many /HPF (None Seen); RBC,URINE TOO NUMEROUS TO COUN /HPF (0-2); WBC,URINE TOO NUMEROUS TO COUN /HPF (0-3)
[2021-04-17 04:02] LABS: SQUAMOUS EPITHELIAL CELL,UR Few /HPF (None Seen)
[2021-04-17] MEDS: ACETAMINOPHEN 650 MG/SUPP.RECT RC PRN (04:05)
--- NOTE | 2021-04-17 04:10 | NUR ---
Patient temp 102.9/ax cool bath rendered.Tylenol supp administered.Continuous cooling measures done.Linens changed.Turned and repositioned.
[2021-04-17 04:32] LABS: BASOPHILS % (AUTO) 0.2 % (0.0-2.0); EOSINOPHILS % (AUTO) 0.1 % (0.0-6.0); HEMATOCRIT 36 % (39-51); HEMOGLOBIN 11.7 g/dL (13.5-17.5); LYMPHOCYTES # (AUTO) 0.6 K/uL (0.8-4.8); LYMPHOCYTES % (AUTO) 9.3 % (20.0-44.0); MEAN CORPUSCULAR HGB CONC 33 g/dl (31.0-36.0); MEAN CORPUSCULAR VOLUME 84 fL (80-96); MONOCYTES # (AUTO) 0.6 K/uL (0.1-1.30); MONOCYTES % (AUTO) 9.1 % (2.0-12.0); NEUTROPHILS # (AUTO) 5.6 K/uL (1.8-8.9); NEUTROPHILS % (AUTO) 81.3 % (43.0-81.0); PLATELET COUNT (AUTO) 294 K/uL (150-450); RED BLOOD CELL COUNT(AUTO) 4.26 MIL/uL (4.5-6.0); WHITE BLOOD COUNT (AUTO) 6.9 K/uL (4.3-11.0)
[2021-04-17] MEDS ORDERED: VASOPRESSIN INJ 20 UNIT/ML VIAL ONE (05:00)
[2021-04-17] MEDS: VASOPRESSIN INJ 40 UNIT in IV NS 0.9% 38 ML IV PRN ×2 (05:06→17:45)
[2021-04-17 05:34] LABS: CALCIUM, SERUM 8.6 mg/dL (8.5-10.1); CREATININE 4.3 mg/dL (0.6-1.3); MAGNESIUM 2.3 mg/dL (1.8-2.4); PHOSPHORUS 4.4 mg/dL (2.5-4.9); POTASSIUM 4.9 mmol/L (3.5-5.1)
--- NOTE | 2021-04-17 06:30 | NUR ---
Patient remains critically ill and hemodynamically unstable tachycardic,tachypneic.Isai Synephrine gtt and Vasopressin gtt titrated accordingly.Continue on NRB mask 15L well tolerated.Latest temp 99.FC with blood in urine.Continue monitoring.Will endorse to day shift for further management and care.
--- NOTE | 2021-04-17 07:30 | NUR ---
OPENING NOTE: REPORT RECEIVED FROM JULIANN NAGEL. PT IS MAX'D ON JO AND VASOPRESSIN, HEART RATE 140-160'S, UNABLE TO START LEVO D/T HIGH HEART RATE. PATIENT IS DNR/DNI. PT RESPONDS TO PAIN ONLY, MINIMALLY RESPONSIVE. NRB 15L. GTUBE CLAMPED. IVF NS 100ML/HR. PT CHECKED ON HOURLY AND PRN BY NURSING STAFF.
--- NOTE | 2021-04-17 09:07 | NUR ---
WOUND CARE CONSULT: PT IS HEMODYNAMICALLY UNSTABLE AT THIS TIME AND WAS NOT TURNED FOR SKIN ASSESSMENT. REVIEWED CHART AND SACRAL SCARRING NOTED IN ADMISSION PHOTO. RECOMMENDATIONS MADE FOR SKIN PROTECTION. DISCUSSED WITH NURSING STAFF. IN AGREEMENT WITH PLAN OF CARE. PT IS ON CINDI ISOFLEX LOW AIRLOSS BED.
[2021-04-17] MEDS ORDERED: Z GUARD REMEDY 2 OZ OINT TP PRN (09:30)
[2021-04-17] MEDS: PANTOPRAZOLE 40 MG VIAL IV SCH ×2 (09:39→17:37)
[2021-04-17] MEDS: MEROPENEM 500 MG in IV NS 0.9% 50 ML IV SCH ×2 (09:39→20:31)
[2021-04-17] MEDS: Z GUARD REMEDY 2 OZ OINT TP SCH (09:39)
[2021-04-17] MEDS: PHENYLEPHRINE 100 MG in IV NS 0.9% 240 ML IV PRN ×2 (13:16→20:04)
--- NOTE | 2021-04-17 13:34 | NUR ---
RT RESP HHN TX'S HELD DUE TO HEART ABOVE 145. PATIENT REQUIRING NRB MASK.
[2021-04-17] MEDS ORDERED: VANCOMYCIN 0.75 GM in IV D5W 250 ML IV SCH (14:00)
--- NOTE | 2021-04-17 19:04 | NUR ---
END OF SHIFT NOTE: PT HAD AN UNEVENTUFUL SHIFT. PT CONTINUES TO BE MAX'D ON JO AND VASOPRESSIN. TMAX THIS SHIFT WAS 100.3 AX, ICE PACKS APPLIED. PT WAS CHECKED ON HOURLY AND PRN BY NURSING STAFF.
--- NOTE | 2021-04-17 19:05 | NUR ---
RECEIVED PT ON BED OBTUNDED, RESPONSE ONLY TO DEEP STIMULI, ON O2 15L VIA NRM SPO2 98% CRACKLES SOUND WHILE BREATHING HEARD WILL ASK RT FOR DEEP SUCTION, ON JO @ 3MCG/KG/MIN AND VASOPRESSIN @ 0.4 MCG/HR, AND NS @ 100ML /HR INFUSING VIA TO PICC, HAVE MURRAY CATHETER WITH PINK TINGED URINE DRAINING VIA GRAVITY MD IS AWARE,BED ON LOWEST POSITION AND LOCKED SIDE RAILS UP WILL CONT TO MONITOR
[2021-04-18] VITALS (83 sets, daily range): BP systolic 87–122; BP diastolic 50–78
--- NOTE | 2021-04-18 00:57 | NUR ---
PT STILL CRITICALLY UNSTABLE STILL ON JO @ 3MCG/KG/MIN AND VASOPRESSIN @ 0.02 UNITS/MIN SBP ON 100'S STILL ON 15L NRM SPO2 99% PT RESPONSIVE ONLY TO DEEP STIMULI, WILL CONT TO MONITOR
[2021-04-18] MEDS: IPRATROPIUM NEB FS 0.5 MG/2.5 ML AMPUL.NEB NEB SCH ×4 (01:36→19:36)
[2021-04-18] MEDS: ALBUTEROL FS 2.5 MG/0.5 ML VIAL.NEB NEB SCH ×4 (01:36→19:36)
[2021-04-18] MEDS: PHENYLEPHRINE 100 MG in IV NS 0.9% 240 ML IV PRN ×3 (03:44→19:00)
[2021-04-18 04:58] LABS: CALCIUM, SERUM 8.4 mg/dL (8.5-10.1); CREATININE 2.3 mg/dL (0.6-1.3); POTASSIUM 3.3 mmol/L (3.5-5.1)
--- NOTE | 2021-04-18 06:13 | NUR ---
PT REMAINS ON BED STILL VERY LETHARGIC, OPEN EYES TO STIMULI BUT NOT FOLLOWING ANY COMMAND, STILL ON O2 15L VIA NRM SPO2 97% NO SIGN OF RESPIRATORY DISTRESS, BEDSIDE MONITOR READS SINUS TACHY 120'S STILL ON JO @ 3 MCG/KG/MIN VASOPRESSIN @ 0.02 UNITS/MIN NS @ 100ML/HR INFUSING VIA TO PICC LINE DRSSING CLEAN DRY AND INTACT NO SIGNIFICANT CHANGES ON CONDITION NOTED, ALL NEEDS ATTENDED, WOUND TREATMENT DONE, BED ON LOWEST POSITION AND LOCKED SIDE RAILS UP X2 WILL CONT TO MONITOR
[2021-04-18] MEDS: IV NS 0.9% 1,000 ML IV SCH (06:30)
[2021-04-18] MEDS: Z GUARD REMEDY 2 OZ OINT TP SCH (08:31)
[2021-04-18] MEDS: MEROPENEM 500 MG in IV NS 0.9% 50 ML IV SCH ×2 (08:31→20:52)
[2021-04-18] MEDS: PANTOPRAZOLE 40 MG VIAL IV SCH ×2 (08:31→16:14)
--- NOTE | 2021-04-18 08:42 | NUR ---
WOUND CARE CONSULT: PT SEEN FOR SKIN ASSESSMENT AND NOTED (UPON FURTHER INVESTIGATION) TO HAVE SACRAL SCARRING WELL INTACT DEEP TISSUE INJURY, PRESENT ON ADMISSION (IN ADMISSION PHOTO). RECOMMENDATIONS MADE FOR SKIN PROTECTION. DISCUSSED WITH NURSING STAFF. PT IS ON CINDI ISOFLEX LOW AIRLOSS BED. MD IN AGREEMENT WITH PLAN OF CARE. PT NOTED TO HAVE FRAGILE SKIN WITH SOME PEELING OF SKIN ON HIS BACK.
[2021-04-18] MEDS ORDERED: POTASSIUM CL. PREMIX PERIPHER. 50 ML IV SCH (10:00)
[2021-04-18] MEDS: IV 1/2NS 1000 ML 1,000 ML IV PRN ×2 (12:00→23:37)
[2021-04-18] MEDS: ACETAMINOPHEN 650 MG/SUPP.RECT RC PRN (16:04)
[2021-04-18] MEDS: VANCOMYCIN 1 GM in IV D5W 250 ML IV SCH (16:10)
[2021-04-18] MEDS ORDERED: MORPHINE SULFATE INJ 2 MG/ML DISP.SYRIN IV PRN (17:30)
[2021-04-18] MEDS: VASOPRESSIN INJ 40 UNIT in IV NS 0.9% 38 ML IV PRN (18:31)
--- NOTE | 2021-04-18 18:54 | NUR ---
PT ON BED STILL VERY LETHARGIC, OPEN EYES BUT NOT FOLLOWING ANY COMMANDS, RESPONSIVE TO STIMULI, STILL SINUS TACHY ON MONITOR, ON O2 10L VIA SIMPLE MASK SPO2 96% NO SIGN OF RESPIRATORY DISTRESS,STILL ON JO 3 MCG/KG/MIN AND VASOPRESSIN 0.01 UNITS/MIN LATEST BP IS 106/71 HR 104 ALL NEEDS ATTENDED, MURRAY CATHETER IS DRAINING VIA GRAVITY, BED AT LOWEST POSITION AND LOCKED SIDE RAILS UP X2 WILL ENDORSED TO AM SHIFT NURSE
--- NOTE | 2021-04-18 20:00 | NUR ---
WORKDAY CONSULTANT NOTES RECEIVED PT IN BED OBTUNDED,NON VERBAL WITH EYES OPEN ON O2 10L VIA SIMPLE MASK SPO2 97% NO SOB NO DISTRESS NOTED ,V/S STABLE AFEBRILE. ON RIGHT UPPER ARM PICC LINE WITH 3 LUMEN INTACT AND PATENT , ON JO @ 3MCG/KG/MIN AND VASOPRESSIN @ 0.01 MCG/HR, AND 1/2 NS @ 100ML /HR INFUSING . WITH MURRAY CATHETER DRAINING WITH YELLOWISH URINE OUTPUT VIA GRAVITY , NO HEMATURIA NOTED .BED ON LOWEST POSITION AND LOCKED SIDE RAILS UP WILL CONT TO MONITOR
[2021-04-19] VITALS (69 sets, daily range): BP systolic 86–140; BP diastolic 48–83
--- NOTE | 2021-04-19 01:00 | NUR ---
agriculture science teacher notes vasopressin held at 1am v/s stable will continue to monitor charge nurse sheila made aware
[2021-04-19] MEDS: IPRATROPIUM NEB FS 0.5 MG/2.5 ML AMPUL.NEB NEB SCH ×4 (01:21→19:36)
[2021-04-19] MEDS: ALBUTEROL FS 2.5 MG/0.5 ML VIAL.NEB NEB SCH ×4 (01:21→19:36)
[2021-04-19] MEDS: PHENYLEPHRINE 100 MG in IV NS 0.9% 240 ML IV PRN ×2 (03:07→11:17)
--- NOTE | 2021-04-19 04:11 | NUR ---
agricultural technician notes 0411hrs received critical lab result of potassium level 0f 2.[address] lou chaney clinical sales consultant relayed lab result with order noted and carried out , potassium premix 80 meq ivpb , 0600 potassium order verified from [facility] , medication started at 6am .willcontinue to monitor pts..v/s stable afebrile no sob no distress noted .
[2021-04-19 04:35] LABS: CALCIUM, SERUM 8.9 mg/dL (8.5-10.1); CREATININE 1.2 mg/dL (0.6-1.3)
[2021-04-19 04:39] LABS: POTASSIUM 2.1 mmol/L (3.5-5.1)
--- NOTE | 2021-04-19 05:00 | NUR ---
telegraph dispatcher notes trace drip titrated to 2.9 mcg at 5am bp 122/76 hr 102 rr22 temp 98.5 97% o2 sat . will continue to monitor pts.
[2021-04-19] MEDS: POTASSIUM CL. PREMIX PERIPHER. 50 ML IV SCH ×8 (05:51→13:41)
--- NOTE | 2021-04-19 06:55 | NUR ---
agricultural researcher notes Pts remains on 10 liters simple mask no sob no distress noted pts remain on ivf 1/2 ns at 100cc/hr also replacing kcl premix 80meq total , 20 meq already given ,will endorse the remaining 60 meq to rn day shift to give .and to continue continuity of care.
--- NOTE | 2021-04-19 07:40 | NUR ---
agricultural plow operator notes kcl 10meq premix bag #3 on progress ,endorse to charge nurse serina
--- NOTE | 2021-04-19 08:00 | NUR ---
PATIENT RECEIVED , AWAKE, LETHARGIC, FOLLOWS SOME SIMPLE COMMANDS. SIMPLE MASK AT 10 L, SATS 98%. ONGOING NEOSYNEPHRINE DRIP AT 2.9 MCG/KG/MIN-WILL TITRATE ABLE PER PROTOCOL. GT REMAINS CLAMPED. NPO AT THIS TIME. FC DRAINING WELL TO YELLOW URINE. KCL REPLACEMENTS ONGOING FOR K-2.1.
[2021-04-19] MEDS: MEROPENEM 500 MG in IV NS 0.9% 50 ML IV SCH ×2 (08:31→21:30)
[2021-04-19] MEDS: PANTOPRAZOLE 40 MG VIAL IV SCH ×2 (08:32→16:44)
[2021-04-19] MEDS: Z GUARD REMEDY 2 OZ OINT TP SCH (08:33)
--- NOTE | 2021-04-19 10:00 | NUR ---
CONTINUE TO TITRATE DOWN JO GTT ABLE.
[2021-04-19] MEDS: IV 1/2NS 1000 ML 1,000 ML IV PRN (11:10)
--- NOTE | 2021-04-19 11:45 | NUR ---
PATIENT BROUGHT TO RADIOLOGY FOR HEAD CT WITHOUT CONTRAST.
[2021-04-19] MEDS: Potassium Chloride 30 MEQ in IV D5W 1,000 ML IV SCH (12:54)
--- NOTE | 2021-04-19 14:00 | NUR ---
PATIENT MORE AWAKE. JO GT TITRATING DOWN PER PROTOCOL. SEEN BY NEPHRO- IVF CHANGED TO D5W WITH 30 MEQ KCL AT 75 ML/HR. KCL 80 MEQ REPLACEMENTS COMPLETED.
[2021-04-19] MEDS: VANCOMYCIN 1 GM in IV D5W 250 ML IV SCH (16:04)
--- NOTE | 2021-04-19 17:00 | NUR ---
COMPLETE PM CARE RENDERED.
--- NOTE | 2021-04-19 18:00 | NUR ---
TITRATED OFF JO GTT AT THIS TIME. SBP REMAINS > 90. WILL CONTINUE TO MONITOR CLOSELY.
--- NOTE | 2021-04-19 19:30 | NUR ---
RN NOTES Received patient in bed awake open eyes non verbal. Breathing normal no SOB noted. Cont on simple mask at 10L saturating 98%. GT clamped, NPO status. IV's intact no s/s of bleeding no swelling noted IVF running well. Skin warm and dry to touch. F/C intact yellow draining well via gravity. Safety measures in place, call light within reach. Will cont to monitor for AMRIK.
[2021-04-20] VITALS (58 sets, daily range): BP systolic 70–121; BP diastolic 59–76
[2021-04-20] MEDS: IPRATROPIUM NEB FS 0.5 MG/2.5 ML AMPUL.NEB NEB SCH ×4 (01:20→20:11)
[2021-04-20] MEDS: ALBUTEROL FS 2.5 MG/0.5 ML VIAL.NEB NEB SCH ×4 (01:20→20:11)
[2021-04-20] MEDS: Potassium Chloride 30 MEQ in IV D5W 1,000 ML IV SCH (02:56)
[2021-04-20 05:21] LABS: CALCIUM, SERUM 8.6 mg/dL (8.5-10.1); CREATININE 1.2 mg/dL (0.6-1.3); MAGNESIUM 1.9 mg/dL (1.8-2.4); PHOSPHORUS 1.5 mg/dL (2.5-4.9)
[2021-04-20 05:26] LABS: POTASSIUM 2.6 mmol/L (3.5-5.1)
[2021-04-20] MEDS: POTASSIUM CL. PREMIX PERIPHER. 50 ML IV SCH ×8 (06:42→15:33)
--- NOTE | 2021-04-20 07:00 | NUR ---
RN NOTES No changes noted during shift. cont with O2 5L via nasal cannula tolerating well. no s/s of pain or discomfort noted. Breathing normal no SOB noted. AM care provided, kept clean and comfortable. IV'S intact IVF running well. F/C intact yellow draining well via gravity. Safety measures in place, call light within reach. Will endorse to AM nurse for michael.
--- NOTE | 2021-04-20 08:00 | NUR ---
rn notes seen patient on mask 10L, no acute respiratory distress, on bedside monitor shows ST-115 . oral care done, patient nonverbal, assist to turn on right side using pillows. iv access on TO PICC line infusing d5w with 30MEQ of KCL running 75 ml/hr intact, and kcl 50ml/hr intact. Michael draining via gravity tea color . GT- intact residual is 20ml. get order via electric truck crane operator Dr Perez start feeding Jevity 30ml/hr as tolerated. patient has left side weakness. getting breathing tx at this time. will follow up.
[2021-04-20] MEDS ORDERED: JEVITY 1.2 CAL 1,000 ML BOTTLE GT PRN (09:00)
[2021-04-20] MEDS ORDERED: POTASSIUM CL. PREMIX PERIPHER. 50 ML IV SCH (09:00)
--- NOTE | 2021-04-20 09:00 | NUR ---
rn notes patient on nc - 6l after breathing treatment., get order GTF jevity @30ml/hr. seen Hospitalist, get order to resume gabapentin 600 ml q4hr per hospitalist. order taken and carried out.
[2021-04-20] MEDS: Z GUARD REMEDY 2 OZ OINT TP SCH (09:13)
[2021-04-20] MEDS: PANTOPRAZOLE 40 MG VIAL IV SCH ×2 (09:17→16:40)
[2021-04-20] MEDS: MEROPENEM 500 MG in IV NS 0.9% 50 ML IV SCH ×2 (09:28→21:10)
[2021-04-20] MEDS ORDERED: Potassium Chloride 40 MEQ in IV D5W 1,000 ML IV SCH (10:00)
[2021-04-20] MEDS ORDERED: Sodium Phosphate 30 MMOL in IV NS 0.9% 250 ML IV SCH (10:00)
[2021-04-20 10:07] LABS: BASOPHILS % (AUTO) 0.2 % (0.0-2.0); HEMATOCRIT 27 % (39-51); HEMOGLOBIN 8.7 g/dL (13.5-17.5); LYMPHOCYTES # (AUTO) 0.6 K/uL (0.8-4.8); LYMPHOCYTES % (AUTO) 4.7 % (20.0-44.0); MEAN CORPUSCULAR HGB CONC 33 g/dl (31.0-36.0); MEAN CORPUSCULAR VOLUME 83 fL (80-96); MONOCYTES # (AUTO) 0.6 K/uL (0.1-1.30); MONOCYTES % (AUTO) 4.6 % (2.0-12.0); NEUTROPHILS # (AUTO) 12.2 K/uL (1.8-8.9); NEUTROPHILS % (AUTO) 90.5 % (43.0-81.0); PLATELET COUNT (AUTO) 130 K/uL (150-450); RED BLOOD CELL COUNT(AUTO) 3.21 MIL/uL (4.5-6.0); WHITE BLOOD COUNT (AUTO) 13.5 K/uL (4.3-11.0)
[2021-04-20] MEDS: GABAPENTIN 300 MG CAPSULE GT SCH ×3 (11:20→23:53)
--- NOTE | 2021-04-20 11:21 | NUR ---
rn notes STARTED GTR AT THIS TIME, DUE MEDICATION ADMINISTERED, NO RESIDUAL, WILL MONITORING.
[2021-04-20 11:36] LABS: LYMPHOCYTES % (MANUAL) 3 % (16-48); MONOCYTES % (MANUAL) 6 % (0-11.0); NEUTROPHILS % (MANUAL) 91 (42-76)
--- NOTE | 2021-04-20 14:40 | NUR ---
rn notes transferred patient to the TELE unit room 312 bed 2. patient stable no acute respiratory distress. iv PICC line intact. [id number], Michael draining via gravity. patient non-verbal. suction due medication administered. bedside report given ROBE Brooks follow plan of care.
--- NOTE | 2021-04-20 15:04 | NUR ---
GRIEVANCE AND APPEALS SPECIALISTMACHINE CEMENTER AND FOLDER NOTES RECEIVED TRANSFER FROM ICU. AT THIS TIME PATIENT MEDICALLY STABLE, OPENS EYES, NON-VERBAL. PATIENT ON OXYGEN THERAPY AT 4 LPM VIA NASAL CANNULA; BREATHING EVEN AND UNLABORED AT THIS TIME. TELE MONITOR WITH A READING OF ST 124. TO PICC LINE PRESENT AND INTACT. G-TUBE IN PLACE RUNNING JEVITY @30 MLS/HR. MURRAY CATH IN PLACE DRAINING CLEAR YELLOW URINE. SAFETY PRECAUTIONS IN PLACE; BED IN LOW POSITION AND LOCKED, RAILS UP X2, CALL LIGHT WITHIN REACH. WILL CONTINUE TO MONITOR PATIENT.
[2021-04-20] MEDS: VANCOMYCIN 1 GM in IV D5W 250 ML IV SCH (18:01)
--- NOTE | 2021-04-20 18:45 | NUR ---
MACHINE OPERATOR HOP WORKER CLOSING NOTES PATIENT REMAINS IN BED, OPENS EYES, NON-VERBAL. PATIENT ON OXYGEN THERAPY AT 4 LPM VIA NASAL CANNULA; BREATHING EVEN AND UNLABORED AT THIS TIME. TELE MONITOR WITH A READING OF ST 111. TO PICC LINE PRESENT AND INTACT. G-TUBE IN PLACE RUNNING JEVITY @30 MLS/HR. MURRAY CATH IN PLACE DRAINING CLEAR YELLOW URINE WITH A DAILY OUTPUT OF 1530 MLS. ALL NEEDS ATTENDED. SAFETY PRECAUTIONS IN PLACE; BED IN LOW POSITION AND LOCKED, RAILS UP X2, CALL LIGHT WITHIN REACH. WILL ENDORSE TO SR. MERCHANDISE PLANNER NURSE.
--- NOTE | 2021-04-20 19:25 | NUR ---
TELERN EYES OPEN, NONVERBAL. IVF WITH K INFUSING WELL VIA LEFT UPPER ARM PICC LINE. ALL LINES OPEN. MURRAY TO GRAVITY MONITORED, ST ON THE MONITOR. REPOSITIONED FOR COMFORT. GT FEEDINGS WELL TOLERATED, NO RESIDUALS. HOB AT 45 DEGREES. CONTINUED MONITORING. CLOSELY WATCHED.
[2021-04-20] MEDS: Potassium Chloride 40 MEQ in IV D5W 1,000 ML IV SCH (21:10)
[2021-04-21] VITALS: BP 93/58
--- NOTE | 2021-04-21 01:10 | NUR ---
TELERN ST ON THE MONITOR. TOLERATED GT FEEDINGS WELL. NO RESP DISTRESS. APPEARS COMFORTABLE.
[2021-04-21] MEDS: ALBUTEROL FS 2.5 MG/0.5 ML VIAL.NEB NEB SCH ×4 (02:03→20:04)
[2021-04-21] MEDS: IPRATROPIUM NEB FS 0.5 MG/2.5 ML AMPUL.NEB NEB SCH ×4 (02:03→20:04)
[2021-04-21 04:00] VITALS: BP 95/58
[2021-04-21] MEDS: GABAPENTIN 300 MG CAPSULE GT SCH ×3 (05:56→17:26)
--- NOTE | 2021-04-21 06:50 | NUR ---
TELERN REMAINS UNCHANGED, REPOSITIONED FOR COMFORT. CONTINUED MONITORING
--- NOTE | 2021-04-21 07:22 | NUR ---
PRESCHOOL HEAD TEACHER OPENING NOTES PATIENT IN BED, ASLEEP. PATIENT ON OXYGEN THERAPY AT 4 LPM VIA NASAL CANNULA; BREATHING EVEN AND UNLABORED AT THIS TIME. TELE MONITOR WITH A READING OF ST 108. TO PICC LINE PRESENT AND INTACT. G-TUBE IN PLACE RUNNING JEVITY @30 MLS/HR. MURRAY CATH IN PLACE DRAINING CLEAR YELLOW URINE. SAFETY PRECAUTIONS IN PLACE; BED IN LOW POSITION AND LOCKED, RAILS UP X2, CALL LIGHT WITHIN REACH. WILL CONTINUE TO MONITOR PATIENT.
[2021-04-21 08:09] VITALS: BP 104/68
[2021-04-21] MEDS: PANTOPRAZOLE 40 MG VIAL IV SCH ×2 (08:50→17:25)
[2021-04-21] MEDS: Z GUARD REMEDY 2 OZ OINT TP SCH (08:51)
[2021-04-21] MEDS: MEROPENEM 500 MG in IV NS 0.9% 50 ML IV SCH ×2 (08:56→21:26)
[2021-04-21] MEDS ORDERED: POTASSIUM PHOSPHATE MM 7.5 MMOL in IV NS 0.9% 100 ML IV SCH (09:00)
[2021-04-21 09:08] LABS: BASOPHILS % (AUTO) 0.1 % (0.0-2.0); EOSINOPHILS % (AUTO) 0.4 % (0.0-6.0); HEMATOCRIT 29 % (39-51); HEMOGLOBIN 9.4 g/dL (13.5-17.5); LYMPHOCYTES # (AUTO) 0.8 K/uL (0.8-4.8); LYMPHOCYTES % (AUTO) 7.4 % (20.0-44.0); MEAN CORPUSCULAR HGB CONC 33 g/dl (31.0-36.0); MEAN CORPUSCULAR VOLUME 83 fL (80-96); MONOCYTES # (AUTO) 0.6 K/uL (0.1-1.30); NEUTROPHILS # (AUTO) 9.9 K/uL (1.8-8.9); NEUTROPHILS % (AUTO) 87.1 % (43.0-81.0); PLATELET COUNT (AUTO) 167 K/uL (150-450); RED BLOOD CELL COUNT(AUTO) 3.47 MIL/uL (4.5-6.0); WHITE BLOOD COUNT (AUTO) 11.4 K/uL (4.3-11.0)
[2021-04-21] MEDS: Potassium Chloride 40 MEQ in IV D5W 1,000 ML IV SCH (09:51)
--- NOTE | 2021-04-21 10:00 | NUR ---
SERICULTURIST NOTES LAB CALLED REGARDING CRITICAL ALBUMIN VALUE OF 1.3 WILL NOTIFY .
[2021-04-21] MEDS: POTASSIUM PHOSPHATE MM 7.5 MMOL in IV NS 0.9% 100 ML IV SCH ×2 (10:37→14:06)
[2021-04-21 12:00] VITALS: BP 94/51
[2021-04-21 12:00] LABS: CREATININE 1.1 mg/dL (0.6-1.3); POTASSIUM 4.1 mmol/L (3.5-5.1)
[2021-04-21 12:06] LABS: BILIRUBIN,TOTAL 0.2 mg/dL (0.2-1.0); TOTAL PROTEIN, SERUM 6.2 g/dL (6.4-8.2)
[2021-04-21 12:11] LABS: ALBUMIN 1.3 g/dL (3.4-5.0)
[2021-04-21] MEDS: VANCOMYCIN 1 GM in IV D5W 250 ML IV SCH (15:19)
[2021-04-21 16:04] VITALS: BP 83/67
--- NOTE | 2021-04-21 17:52 | NUR ---
EQUIPMENT SERVICE ENGINEER NOTES NOTICED PATIENT BREATHING RAPID AND SHALLOW. CHECKED O2. PATIENT AT 82% WITH HR 120. CALLED RT. APPLIED NON-REBREATHER MASK. RT AT BEDSIDE. PATIENT DEEP SUCTIONED. PUT BACK ON 4 L NASAL CANNULA. MONITORING THE PATIENT AT THIS TIME. WILL CONTINUE TO MONITOR.
--- NOTE | 2021-04-21 18:58 | NUR ---
CARRIAGE FEEDER CLOSING NOTES PATIENT REMAINS IN BED, ASLEEP. PATIENT ON OXYGEN THERAPY AT 4 LPM VIA NASAL CANNULA; BREATHING EVEN AND UNLABORED AT THIS TIME, NO SOB NOTED SATURATING 97%. TELE MONITOR WITH A READING OF ST 109. TO PICC LINE PRESENT AND INTACT. G-TUBE IN PLACE RUNNING JEVITY @30 MLS/HR. MURRAY CATH IN PLACE DRAINING CLEAR YELLOW URINE WITH DAILY OUTPUT OF 1100 MLS. SAFETY PRECAUTIONS IN PLACE BED IN LOW POSITION AND LOCKED, RAILS UP X2, CALL LIGHT WITHIN REACH. WILL ENDORSE TO DESPATCHING AND RECEIVING CLERK NURSE.
--- NOTE | 2021-04-21 19:35 | NUR ---
ELECTRICIAN THIRD NOTES RECEIVED ON BED,ON LEFT SIDE POSITION,BREATHING NON LABORED,ON 4L/NC 96% O2 SAT.WITH GT FEEDING OF JEVITY AT 30ML/HR RATE,TOLERATED WELL,NO RESIDUAL VOLUME NOTED.HOB ELEVATED FOR ASPIRATION PRECAUTION.,IVF D4W WITH 40MEQ INFUSING AT 100ML/HR RATE VIA IV PUMP ON TO PICC LINE.MURRAY CATH IN PLACE DRAINING YELLOWISH OUTPUT.DNR/DNI STATUS.WILL CONTINUE TO MONITOR.
--- NOTE | 2021-04-21 19:59 | NUR ---
BARREL CENTERER NOTES ST-111 ON TELE MONITOR.
[2021-04-21 20:00] VITALS: BP 98/66
[2021-04-22] VITALS: BP 125/93
[2021-04-22] MEDS: GABAPENTIN 300 MG CAPSULE GT SCH ×5 (00:02→23:30)
[2021-04-22] MEDS: IPRATROPIUM NEB FS 0.5 MG/2.5 ML AMPUL.NEB NEB SCH ×4 (02:01→20:00)
[2021-04-22] MEDS: ALBUTEROL FS 2.5 MG/0.5 ML VIAL.NEB NEB SCH ×4 (02:01→20:00)
[2021-04-22] MEDS: Potassium Chloride 40 MEQ in IV D5W 1,000 ML IV SCH ×3 (03:48→09:27)
[2021-04-22 04:00] VITALS: BP 112/63
--- NOTE | 2021-04-22 04:30 | NUR ---
HOLIDAY DETECTOR OPERATOR NOTES MORNING CARE RENDERED,DRESSING CHANGE DONE SACRAL AREA.REPOSITION
--- NOTE | 2021-04-22 06:19 | NUR ---
DRIVER'S LICENSE EXAMINER NOTES NO SIGNIFICANT CHANGE IN STATUS,DNR/DNI STATUS,FREQUENT SUCTIONING DONE.IN NO ACUTE DISTRESS,GT FEEDING TOLERATED WELL.WILL ENDORSE TO DAY NURSE FOR AMRIK.
--- NOTE | 2021-04-22 07:43 | NUR ---
WET POUR MIXER OPENING NOTES RECEIVED PATIENT ASLEEP IN BED, EASY TO AROUSE. ALERT AND ORIENTED X 1, OPEN EYES. NO SOB. NO SIGNS OR SYMPTOMS OF DISTRESS NOTED. BREATHING IS EVEN AND UNLABORED. PATIENT ON EXTERNAL TELE MONITOR WITH ST READING. MURARY CATHETER IS DRAINING WELL WITH YELLOW, CLEAR URINE. SAFETY MEASURES IN PLACE WITH BED LOCKED AT LOW POSITION AND SIDE RAILS UP X2. CALL LIGHT WITHIN REACH. WILL CONTINUE TO MONITOR PATIENT THROUGHOUT SHIFT.
[2021-04-22 08:00] VITALS: BP 122/67
[2021-04-22 08:22] LABS: CALCIUM, SERUM 8.1 mg/dL (8.5-10.1); CREATININE 0.9 mg/dL (0.6-1.3); POTASSIUM 4.6 mmol/L (3.5-5.1)
[2021-04-22] MEDS: Z GUARD REMEDY 2 OZ OINT TP SCH (09:07)
[2021-04-22] MEDS: PANTOPRAZOLE 40 MG VIAL IV SCH (09:07)
[2021-04-22] MEDS: MEROPENEM 500 MG in IV NS 0.9% 50 ML IV SCH ×2 (09:13→20:43)
--- NOTE | 2021-04-22 09:45 | NUR ---
ETL TESTER NOTES CHANGED IVF BAG PER PHARMACY. SCANNING WAS WAS DONE "DOCUMENTING AGAINST SCHEDULED TIME." PHARMACY AND CHARGE NURSE AWARE.
--- NOTE | 2021-04-22 14:00 | NUR ---
RADIO ASSEMBLER NOTES IVF D5 +40 MEQ @100MLS/HR STOPPED PER DISCONTINUATION MD ORDER.
[2021-04-22] MEDS ORDERED: Potassium Chloride 40 MEQ in IV D5W 1,000 ML IV PRN (14:19)
[2021-04-22] MEDS: VANCOMYCIN 1 GM in IV D5W 250 ML IV SCH (15:31)
[2021-04-22] MEDS: ACETAMINOPHEN 650 MG/SUPP.RECT RC PRN (16:31)
--- NOTE | 2021-04-22 16:46 | NUR ---
DISTRICT MEDICAL EXAMINER NOTES PATIENT TEMPERATURE AXILLARY TEMPERATURE ELEVATED AT 101. ADMINISTERED TYLENOL SUPPOSITORY 650MG. WILL MONITOR PATIENT TEMPERATURE FOR CHANGES/IMPROVEMENT.
--- NOTE | 2021-04-22 17:46 | NUR ---
REFINERY OPERATOR HELPER NOTES TEMPERATURE CURRENTLY AT 99.8
--- NOTE | 2021-04-22 19:03 | NUR ---
HOUSEPERSON CLOSING NOTES PATIENT IS IN BED, ABLE TO FOLLOW WITH EYES. NO SIGNS OR SYMPTOMS OF DISTRESS. ALL NEEDS MET THROUGHOUT SHIFT. TEMPERATURE DECREASED TO 99.8F AFTER TYLENOL ADMINISTRATION. NO IVF RUNNING AT THIS TIME. ALL SAFETY MEASURES MAINTAINED WITH BED LOCKED AT LOW POSITION AND SIDE RAILS UP X2. CALL LIGHT IS WITHIN REACH. WILL ENDORSE CONTINUITY OF CARE TO ONCOMING SHIFT.
--- NOTE | 2021-04-22 19:20 | NUR ---
OUTSIDE DELIVERER NOTES RECEIVED ON SUPINE POSITION,WITH HOB ELEVATED.GT FEEDING IN PROGRESS AT 30ML/HR RATE,NOTED 5ML RESIDUAL VOLUME.IVF DISCONTINUED TODAY BY MD PER REPORT.SUCTION ORALLY FOR LOTS OF MUCUS.MURRAY CATH IN PLACE DRAINING YELLOWISH OUTPUT.DVT PUMP IN USED FOR DVT PROPHYLAXIS.WILL REPOSITION Q 2 HOURS.DNR/DNI STATUS WITH ORDER.
[2021-04-22 20:00] VITALS: BP 103/72
--- NOTE | 2021-04-22 20:30 | NUR ---
SCALES INSPECTOR NOTES ST-112 ON TELE MONITOR
[2021-04-22] MEDS: PANTOPRAZOLE 40 MG/PACK PACK GT SCH (20:57)
[2021-04-23] VITALS: BP 101/61
[2021-04-23] MEDS: IPRATROPIUM NEB FS 0.5 MG/2.5 ML AMPUL.NEB NEB SCH ×4 (01:46→19:46)
[2021-04-23] MEDS: ALBUTEROL FS 2.5 MG/0.5 ML VIAL.NEB NEB SCH ×4 (01:46→19:46)
[2021-04-23 04:00] VITALS: BP 95/51
[2021-04-23 05:09] VITALS: BP 95/51
[2021-04-23] MEDS: GABAPENTIN 300 MG CAPSULE GT SCH ×3 (06:03→18:19)
--- NOTE | 2021-04-23 06:24 | NUR ---
MAGAZINE JOURNALIST NOTES NO SIGNIFICANT CHANGE IN STATUS,GT FEEDING TOLERATED WELL,NO LOOSE BM NOTED.REPOSITIONED PER PROTOCOL.FREQUENT SUCTION RENDERED.DNR.DNI STATUS.
--- NOTE | 2021-04-23 07:35 | NUR ---
OFFICE MACHINES SALES REPRESENTATIVE OPENING NOTES RECEIVED PATIENT ASLEEP IN BED, EASY TO AROUSE. ABLE TO OPEN EYES. NO SOB. NO SIGNS OR SYMPTOMS OF DISTRESS NOTED. PATIENT ON EXTERNAL TELE MONITOR WITH ST READING. MURRAY CATHETER IS DRAINING WELL WITH YELLOW, CLEAR URINE. SAFETY MEASURES IN PLACE WITH BED LOCKED AT LOW POSITION AND SIDE RAILS UP X2. CALL LIGHT WITHIN REACH. WILL CONTINUE TO MONITOR PATIENT THROUGHOUT SHIFT.
[2021-04-23 07:41] LABS: CREATININE 0.9 mg/dL (0.6-1.3); MAGNESIUM 1.6 mg/dL (1.8-2.4); PHOSPHORUS 3.6 mg/dL (2.5-4.9); POTASSIUM 3.6 mmol/L (3.5-5.1)
[2021-04-23 08:13] VITALS: BP 110/62
[2021-04-23 08:31] LABS: CALCIUM, SERUM 8.1 mg/dL (8.5-10.1)
[2021-04-23] MEDS: PANTOPRAZOLE 40 MG/PACK PACK GT SCH ×2 (08:50→21:08)
[2021-04-23] MEDS: Z GUARD REMEDY 2 OZ OINT TP SCH (08:50)
[2021-04-23] MEDS: MEROPENEM 500 MG in IV NS 0.9% 50 ML IV SCH ×2 (08:57→21:08)
[2021-04-23] MEDS: Magnesium 1GM/D5W 100ML PREMIX 100 ML IV SCH ×2 (10:38→11:22)
[2021-04-23 12:00] VITALS: BP 90/53
[2021-04-23] MEDS ORDERED: JEVITY 1.2 CAL 1,000 ML BOTTLE GT SCH (13:30)
[2021-04-23] MEDS: VANCOMYCIN 1 GM in IV D5W 250 ML IV SCH (16:10)
--- NOTE | 2021-04-23 19:41 | NUR ---
HAND SHOES SEWER OPENING NOTES PATIENT ASLEEP IN BED. ABLE TO OPEN EYES. BREATHING IS SLIGHTLY LABORED, BUT NOT IN ANY APPARENT DISTRESS. PATIENT IS SATURATING AT 96% AT 3L NASAL CANNULA. PATIENT ON EXTERNAL TELE MONITOR WITH ST READING. MURRAY CATHETER IS DRAINING WELL WITH YELLOW, CLEAR URINE. SAFETY MEASURES IN PLACE WITH BED LOCKED AT LOW POSITION AND SIDE RAILS UP X2. CALL LIGHT WITHIN REACH. WILL ENDORSE CONTINUITY OF CARE TO ONCOMING SHIFT. Addendum: 04/23/21 at 1944 by NEETU SILVER RN HAND SHOES SEWER CLOSING NOTES PATIENT ASLEEP IN BED. ABLE TO OPEN EYES. BREATHING IS SLIGHTLY LABORED, BUT NOT IN ANY APPARENT DISTRESS. PATIENT IS SATURATING AT 96% AT 3L NASAL CANNULA. PATIENT ON EXTERNAL TELE MONITOR WITH ST READING. MURRAY CATHETER IS DRAINING WELL WITH YELLOW, CLEAR URINE. SAFETY MEASURES IN PLACE WITH BED LOCKED AT LOW POSITION AND SIDE RAILS UP X2. CALL LIGHT WITHIN REACH. WILL ENDORSE CONTINUITY OF CARE TO ONCOMING SHIFT.
--- NOTE | 2021-04-23 19:44 | NUR ---
TRANSITION SPECIALIST CLOSING NOTES PATIENT ASLEEP IN BED. ABLE TO OPEN EYES. BREATHING IS SLIGHTLY LABORED, BUT NOT IN ANY APPARENT DISTRESS. PATIENT IS SATURATING AT 96% AT 3L NASAL CANNULA. PATIENT ON EXTERNAL TELE MONITOR WITH ST READING. MURRAY CATHETER IS DRAINING WELL WITH YELLOW, CLEAR URINE. SAFETY MEASURES IN PLACE WITH BED LOCKED AT LOW POSITION AND SIDE RAILS UP X2. CALL LIGHT WITHIN REACH. WILL ENDORSE CONTINUITY OF CARE TO ONCOMING SHIFT.
--- NOTE | 2021-04-23 19:45 | NUR ---
TELE/RN OPENING NOTE RECEIVED PATIENT RESTING IN BED. AWAKE, NON-VERBAL AT BASELINE. NO S/SX OF PAIN NOTED. CONTINUES ON O2 3L VIA NC WITH NO S/SX OF RESPIRATORY DISTRESS NOTED. IV ACCESS TO RIGHT UPPER ARM PICC LINE AND RIGHT FOREARM #20G BOTH INTACT, PATENT AND SALINE LOCKED. CONTINUES ON GT FEED JEVITY 1.2 @ 65ML/HR WITH PATIENT TOLERATING WELL. 5ML RESIDUAL NOTED AT THIS TIME. MURRAY CATHETER IN PLACE DRAINING TO GRAVITY. CALL LIGHT WITHIN REACH. FREQUENT SAFETY CHECKS MADE. ASPIRATION, FALL AND SAFETY PRECAUTIONS MAINTAINED. WILL CONTINUE TO MONITOR.
[2021-04-23 20:00] VITALS: BP 98/66
[2021-04-24] VITALS: BP 102/69
[2021-04-24] MEDS: GABAPENTIN 300 MG CAPSULE GT SCH ×3 (00:49→12:37)
[2021-04-24] MEDS: IPRATROPIUM NEB FS 0.5 MG/2.5 ML AMPUL.NEB NEB SCH ×3 (01:38→14:56)
[2021-04-24] MEDS: ALBUTEROL FS 2.5 MG/0.5 ML VIAL.NEB NEB SCH ×3 (01:38→14:56)
--- NOTE | 2021-04-24 06:15 | NUR ---
TELE/RN CLOSING NOTE PATIENT CURRENTLY SLEEPING IN BED. NON-VERBAL AT BASELINE. NO S/SX OF PAIN NOTED. CONTINUES ON O2 3L VIA NC WITH NO S/SX OF RESPIRATORY DISTRESS NOTED. IV ACCESS TO RIGHT UPPER ARM PICC LINE AND RIGHT FOREARM #20G BOTH INTACT, PATENT AND SALINE LOCKED. CONTINUES ON GT FEED JEVITY 1.2 @ 65ML/HR WITH PATIENT TOLERATING WELL. MURRAY CATHETER IN PLACE DRAINING ROSE MARIE COLORED URINE. OUTPUT THIS SHIFT IS 600CC. CALL LIGHT WITHIN REACH. FREQUENT SAFETY CHECKS MADE. ASPIRATION, FALL AND SAFETY PRECAUTIONS MAINTAINED. WILL ENDORSE PLAN OF CARE TO ONCOMING SHIFT. Addendum: 04/24/21 at 0621 by VIVIANA SAWANT RN TELE MONITOR CURRENTLY READING ST 105
[2021-04-24 07:21] LABS: CREATININE 0.9 mg/dL (0.6-1.3); MAGNESIUM 2.1 mg/dL (1.8-2.4); POTASSIUM 3.7 mmol/L (3.5-5.1)
--- NOTE | 2021-04-24 07:37 | NUR ---
TELE/RN OPENING NOTES RECEIVED PATIENT ON BED AWAKE AND NON VERBAL. PATIENT IS ON 4L OXYGEN VIA NASAL CANNULA. PATIENT IN NO APPARENT RESPIRATORY DISTRESS NOTED. NO SIGN AND SYMPTOM OF PAIN AT THIS TIME. TELE MONITOR READING S[place] TACHY 107 BPM. WILL CONTINUE TO MONITOR.
[2021-04-24 08:12] VITALS: BP 93/61
[2021-04-24] MEDS: PANTOPRAZOLE 40 MG/PACK PACK GT SCH (08:35)
[2021-04-24] MEDS: Z GUARD REMEDY 2 OZ OINT TP SCH (08:36)
[2021-04-24] MEDS: MEROPENEM 500 MG in IV NS 0.9% 50 ML IV SCH (08:57)
[2021-04-24 12:00] VITALS: BP 91/53
[2021-04-24] MEDS ORDERED: VANCOMYCIN 1 GM in IV D5W 250 ML IV SCH (15:00)
[2021-04-24 16:06] VITALS: BP 91/65
--- NOTE | 2021-04-24 17:27 | NUR ---
RN NOTES PATIENT IS ALERT OPEN EYES. PATIENT IS ON 4L OXYGEN VIA NASAL CANNULA. PATIENT IN NO APPARENT RESPIRATORY DISTRESS NOTED. NO SIGN AND SYMPTOM OF PAIN NOTED AT THIS TIME. SEEN AND EXAMINED BY MD WITH ORDERS MADE AND CARRIED OUT. ALL DUE MEDICATIONS WAS GIVEN. DISCHARGED INSTRUCTIONS WAS GIVEN TO THONY NAGEL AT [facility]. PATIENT LEFT THE HOSPITAL IN MEDICALLY STABLE CONDITION ADOLESCENT SPECIALIST BY 3 EMT VIA AMBULANCE.
== END 2021-04-24 17:25 | DRG 720 ==
LOC: ER 01:40 → MEDSG1 03:13 → ICU 16:18 → TELE 04-20 14:42
PROVIDERS: ADMIT Nurse Practitioner Family; ATTEND Internal Medicine
PROC: 02HV33Z Insertion of Infusion Device into Superior Vena Cava, Percutaneous Approach (ICD-10-PCS; principal; 2021-04-16)
PROC: B548ZZA Ultrasonography of Superior Vena Cava, Guidance (ICD-10-PCS; 2021-04-16)
DX: A41.9 Sepsis, unspecified organism (principal); J96.01 Acute respiratory failure with hypoxia; J69.0 Pneumonitis due to inhalation of food and vomit; R65.21 Severe sepsis with septic shock; N17.0 Acute kidney failure with tubular necrosis; G92 Toxic encephalopathy; I95.9 Hypotension, unspecified; E11.22 Type 2 diabetes mellitus with diabetic chronic kidney disease; E78.5 Hyperlipidemia, unspecified; Z20.822 Contact with and (suspected) exposure to COVID-19; N18.9 Chronic kidney disease, unspecified; N39.0 Urinary tract infection, site not specified; I12.9 Hypertensive chronic kidney disease with stage 1 through stage 4 chronic kidney disease, or unspecified chronic kidney disease; E11.40 Type 2 diabetes mellitus with diabetic neuropathy, unspecified; J44.0 Chronic obstructive pulmonary disease with (acute) lower respiratory infection; Z66 Do not resuscitate; Z51.5 Encounter for palliative care; I25.10 Atherosclerotic heart disease of native coronary artery without angina pectoris; I69.354 Hemiplegia and hemiparesis following cerebral infarction affecting left non-dominant side; Z79.01 Long term (current) use of anticoagulants; Z79.82 Long term (current) use of aspirin; Z79.899 Other long term (current) drug therapy; K21.9 Gastro-esophageal reflux disease without esophagitis; E87.6 Hypokalemia; J15.6 Pneumonia due to other Gram-negative bacteria; E83.39 Other disorders of phosphorus metabolism; N40.0 Benign prostatic hyperplasia without lower urinary tract symptoms; Z87.11 Personal history of peptic ulcer disease; E87.0 Hyperosmolality and hypernatremia; N20.0 Calculus of kidney; N13.30 Unspecified hydronephrosis
CPT/HCPCS: 31720; 36415; 36569; 70450-TC; 71045-TC; 76770-TC; 80048-TC; 80053-TC; 80202-TC; 81001; 82248-TC; 82533; 82570-TC; 83605-TC; 83735-TC; 84100-TC; 84300-TC; 84443-TC; 85025-TC; 85730-TC; 86850-TC; 87040-TC; 87081-TC; 87086-TC; 94760-TC; 94799-TC; A6253; A9563; C9113; C9803; G0378; J2185; J2270; J2370; J2543; J3370; J3475; J3480; J3490; J7030; J7040; J7050; J7060; J7070; J7120

== ENCOUNTER 2021-04-24 20:11 | Inpatient (IN) | payer MEDICAID ==
[~2021-04-24] VITALS: Ht 175.3 cm; Wt 73.9 kg
--- NOTE | 2021-04-24 20:30 | NUR ---
PT MERLY 100 FROM [facility] FOR C/O LOW O2 SAT PT WAS D/C'D FROM [facility] 2 HOURS AGO. PT ALERT AND ORIENTED X1. PT NON AMBULATORY ON O2 WITH HYPOXIA PRESENT.
[2021-04-24] MEDS ORDERED: MEROPENEM 1 G VIAL IV ONE (20:42)
[2021-04-24] MEDS ORDERED: VANCOMYCIN 1 GM VIAL ONE (20:43)
[2021-04-24] MEDS ORDERED: NS 0.9% IV ONE (21:00)
[2021-04-24] MEDS ORDERED: VANCOMYCIN 1 GM in IV D5W 250 ML IV SCH (21:00)
[2021-04-24] MEDS ORDERED: MEROPENEM 1,000 MG in IV NS 0.9% 100 ML IV ONE (21:00)
[2021-04-24] MEDS ORDERED: IV NS 0.9% 1,000 ML IV ONE (21:00)
--- NOTE | 2021-04-24 21:02 | NUR ---
TELE 319
[2021-04-24 21:06] LABS: BASOPHILS % (AUTO) 0.2 % (0.0-2.0); HEMATOCRIT 28 % (39-51); HEMOGLOBIN 9.1 g/dL (13.5-17.5); LYMPHOCYTES # (AUTO) 1.5 K/uL (0.8-4.8); LYMPHOCYTES % (AUTO) 7.4 % (20.0-44.0); MEAN CORPUSCULAR HGB CONC 32 g/dl (31.0-36.0); MEAN CORPUSCULAR VOLUME 82 fL (80-96); MONOCYTES # (AUTO) 0.9 K/uL (0.1-1.30); MONOCYTES % (AUTO) 4.6 % (2.0-12.0); NEUTROPHILS # (AUTO) 17.9 K/uL (1.8-8.9); NEUTROPHILS % (AUTO) 86.8 % (43.0-81.0); PLATELET COUNT (AUTO) 419 K/uL (150-450); RED BLOOD CELL COUNT(AUTO) 3.43 MIL/uL (4.5-6.0); WHITE BLOOD COUNT (AUTO) 20.6 K/uL (4.3-11.0)
--- NOTE | 2021-04-24 21:17 | NUR ---
COVID SWAB COLLECTED AND SENT TO LAB
--- NOTE | 2021-04-24 21:27 | NUR ---
URINE COLLECTED AND SENT TO LAB.
[2021-04-24 21:28] LABS: ALANINE AMINOTRANSFERASE 189 U/L (12-78); ALKALINE PHOSPHATASE 134 U/L (46-116); ASPARTATE AMINOTRANSFERASE 121 U/L (15-37); BILIRUBIN,DIRECT 0.1 mg/dL (0.0-0.2); BILIRUBIN,TOTAL 0.3 mg/dL (0.2-1.0); CALCIUM, SERUM 8.6 mg/dL (8.5-10.1); CARBON DIOXIDE 25 mmol/L (21-32); CHLORIDE 111 mmol/L (98-107); CREATININE 0.9 mg/dL (0.6-1.3); GLUCOSE 105 mg/dL (74-106); POTASSIUM 3.9 mmol/L (3.5-5.1); SODIUM SERUM 146 mmol/L (136-145); TOTAL PROTEIN, SERUM 7.6 g/dL (6.4-8.2); UREA NITROGEN, BLOOD 25 mg/dL (7-18)
[2021-04-24 21:31] LABS: ALBUMIN 1.4 g/dL (3.4-5.0)
--- NOTE | 2021-04-24 21:32 | NUR ---
CRITIAL LAB ALBUMIN 1.4
[2021-04-24 21:36] LABS: BILIRUBIN,URINE Negative (NEGATIVE); COLOR,URINE ORANGE (YELLOW); LEUKOCYTE ESTERASE ,URINE Small (NEGATIVE); NITRITE, URINE Negative (NEGATIVE); PROTEIN,URINE 100 mg/dl (NEGATIVE); UGLUCOSE Negative (NEGATIVE); UROBILINOGEN,URINE 0.2 EU/dL (0.2)
[2021-04-24 21:43] LABS: WBC,URINE TOO NUMEROUS TO COUN /HPF (0-3)
--- NOTE | 2021-04-24 21:43 | NUR ---
Rosana gonzalez in [facility] - 04/24/21 at 2144 by SIMONE REPORT GIVEN TO ROBE LORENZ.
[2021-04-24 21:44] LABS: BACTERIA,URINE 3+ /HPF (None Seen); SQUAMOUS EPITHELIAL CELL,UR Few /HPF (None Seen)
--- NOTE | 2021-04-24 22:20 | NUR ---
REPORT GIVEN TO ROBE WRIGHT
--- NOTE | 2021-04-24 22:55 | NUR ---
PT BEING TRANSFERRED TO 319 PER ACLS.
[2021-04-24 23:00] VITALS: BP 97/58
[2021-04-24] MEDS: TAMSULOSIN 0.4 MG CAP.SR.24H PO SCH (23:00)
--- NOTE | 2021-04-24 23:00 | NUR ---
DATA CONVERSION DEVELOPER ADMITTING NOTE PT TRANSPORTED BY [facility] TO UNIT AT THIS TIME. RECEIVED REPORT FROM ROBE LOPEZ @ER, AOX1. PT UNABLE TO COMMUNICATE NEEDS. NO SOB OR C/O PAIN NOTED AT THIS TIME, NO S/S OF ANY APPARENT DISTRESS NOTED. RESPIRATION EVEN AND LABORED, HYPOACTIVE BOWEL SOUNDS AUSCULTATED THROUGHOUT, ABDOMEN IS NON DISTENDED. GTUBE IN PLACE. SKIN IS NOT INTACT,WARM TO TOUCH. REDNESS ON THE BACK AND SACCRUM SORE NOTED. CAPILLARY REFILL <3 SECONDS, PULSES PRESENT BILATERALLY. IV ACCESS IN R FOOT G#20, INTACT, PATENT AND FLUSHING WELL. PT'S BELONGINGS ACCOUNTED FOR, AND KEPT AT PT'S BEDSIDE. ASPIRATION AND SAFETY PRECAUTIONS IN PLACE AND MAINTAINED AT ALL TIMES. BED IN LOWEST LOCKED POSITION, SIDE RAILS UP X2, TABLE AND CALL LIGHT WITHIN REACH. WILL CONTINUE PLAN OF CARE.
--- NOTE | 2021-04-24 23:00 | NUR ---
FLOMAX NON ADMINISTERED. ER ORDER
[2021-04-25] VITALS: BP 105/63
[2021-04-25] MEDS: IPRATROPIUM NEB FS 0.5 MG/2.5 ML AMPUL.NEB NEB SCH ×4 (03:00→20:35)
[2021-04-25 04:00] VITALS: BP 101/68
--- NOTE | 2021-04-25 04:30 | NUR ---
rt called to pt room for decreased spo2. pt on 15l non rebreather mask with spo2 approximally 90%. nts preformed suctioning a large amount of thick yellow johnson secretions. atrovent tx not administered at this time due to pt spo2 on nrb 15l. rn aware Addendum: 04/25/21 at 0546 by HELEN BOCANEGRA RT Amended: Links added.
[2021-04-25] MEDS ORDERED: CEFEPIME 1 GM VIAL ONE (05:34)
[2021-04-25] MEDS: CEFEPIME 2 GM in IV D5W 100 ML IV SCH ×3 (05:43→20:53)
[2021-04-25] MEDS ORDERED: ONDANSETRON HCL/PF 4 MG/2 ML VIAL IVP PRN (06:30)
[2021-04-25] MEDS ORDERED: ACETAMINOPHEN 325 MG TABLET PO PRN (06:30)
[2021-04-25] MEDS ORDERED: Z GUARD REMEDY 2 OZ OINT TP PRN (06:30)
[2021-04-25] MEDS ORDERED: MAGNESIUM HYDROXIDE 30 ML UDC PO PRN (06:30)
[2021-04-25] MEDS ORDERED: ZOLPIDEM TARTRATE 5 MG TABLET PO PRN (06:30)
[2021-04-25] MEDS ORDERED: MAG HYDROX/AL HYDROX/SIMETH 30 ML UDC PO PRN (06:30)
--- NOTE | 2021-04-25 06:30 | NUR ---
RN CLOSING NOTE PT IS IN BED, EASILY AROUSED TO NAME AND TOUCH. A/OX1. PT IS STABLE ON 15L OXYGEN VIA NON REBREATHER. PT IS BEDREST. IV ACCESS IS INTACT, PATENT, AND FLUSHING WELL. ALL NEEDS HAVE BEEN MET. ALL CARE, NEEDS, MEDICATIONS, AND TREATMENT ADMINISTERED ANTICIPATED PER ORDER. REPOSITIONED PT Q2H AND PRN. SAFETY, SEIZURE, AND ASPIRATION PRECAUTIONS MAINTAINED AT ALL TIMES. BED IN LOWEST LOCKED POSITION, HOB ELEVATED, SIDE RAILS UP X2. CALL LIGHT AND TABLE WITHIN REACH. WILL ENDORSE TO ONCOMING NURSE FOR AMRIK.
[2021-04-25 06:46] LABS: BASOPHILS % (AUTO) 0.2 % (0.0-2.0); EOSINOPHILS % (AUTO) 0.5 % (0.0-6.0); HEMATOCRIT 25 % (39-51); HEMOGLOBIN 8.1 g/dL (13.5-17.5); LYMPHOCYTES # (AUTO) 1.2 K/uL (0.8-4.8); MEAN CORPUSCULAR HGB CONC 32 g/dl (31.0-36.0); MEAN CORPUSCULAR VOLUME 82 fL (80-96); MONOCYTES # (AUTO) 0.9 K/uL (0.1-1.30); MONOCYTES % (AUTO) 3.8 % (2.0-12.0); NEUTROPHILS # (AUTO) 22.3 K/uL (1.8-8.9); NEUTROPHILS % (AUTO) 90.5 % (43.0-81.0); PLATELET COUNT (AUTO) 318 K/uL (150-450); RED BLOOD CELL COUNT(AUTO) 3.06 MIL/uL (4.5-6.0); WHITE BLOOD COUNT (AUTO) 24.7 K/uL (4.3-11.0)
[2021-04-25 06:54] LABS: CALCIUM, SERUM 8.2 mg/dL (8.5-10.1); CREATININE 0.8 mg/dL (0.6-1.3); POTASSIUM 3.5 mmol/L (3.5-5.1)
--- NOTE | 2021-04-25 07:28 | NUR ---
IRON MINER OPENING NOTES RECEIVED PT AWAKE IN BED. HOB ELEVATED. A/O X1 TO NAME ONLY. PT CURRENTLY ON 15LPM 02 VIA NRB, TOLERATING WELL. PT ON EXTERNAL OUTDOOR STUDIES DIRECTOR WITH CURRENT READING OF ST, HR 102, NO CARDIAC DISTRESS OBSERVED ART THIS TIME. IV SL ON RIGHT FOOT G#22 INTACT, PATENT AND FLUSHES WELL. G-TUBE INTACT AND PATENT, NO FEEDING RUNNING AT THIS TIME, WILL START GTF THIS MORNING. SAFETY MEASURES IN PLACE: BED IN LOWEST LOCKED POSITION WITH S/R UP X3. CALL LIGHT W/I EASY REACH OF PT. WILL CONTINUE TO MONITOR PT ACCORDINGLY.
[2021-04-25 07:37] LABS: MAGNESIUM 2.2 mg/dL (1.8-2.4); PHOSPHORUS 3.8 mg/dL (2.5-4.9)
[2021-04-25] MEDS: ALBUTEROL FS 2.5 MG/0.5 ML VIAL.NEB NEB SCH ×3 (07:56→23:30)
[2021-04-25] MEDS: JEVITY 1.2 CAL 1,000 ML BOTTLE GT PRN (07:57)
[2021-04-25 08:00] VITALS: BP 110/70
[2021-04-25] MEDS: GABAPENTIN 300 MG CAPSULE PO SCH ×4 (08:27→20:54)
[2021-04-25] MEDS: PANTOPRAZOLE 40 MG TABLET.DR PO SCH (08:27)
[2021-04-25] MEDS: MULTIVITAMINS,THERAGRAN 1 UDTAB TABLET PO SCH (08:27)
[2021-04-25] MEDS: ASPIRIN EC 81 MG TABLET.DR PO SCH (08:27)
--- NOTE | 2021-04-25 08:51 | NUR ---
RN NOTES PT EVALUATED BY RT DORAN, HE SUCTIONED PT WITH THICK YELLOWISH SECRETIONS OBTAINED AND PLACED PT ON 02 VIA N/C AT 6LPM, TOLERATING WELL WITH SP02 OF 93-95% NOTED. WILL CONTINUE TO MONITOR
[2021-04-25] MEDS ORDERED: APIXABAN 5 MG TABLET PO SCH (09:00)
--- NOTE | 2021-04-25 09:30 | NUR ---
RECEIVED PATENT IN BED ALERT TO NURSE AT THE BEDSIDE MUMBLES HIS WORDS EYE CONTACT PRESENT RIGHT ARM FLACCID SWOLLEN ELEVATED ON A PILLOW LEFT ARM SOME MOVEMENT SWOLLEN HAND CONTRACTED PLACED ON A PILLOW ASP PRECAUTIONS HOB UP 40 DEGREES CONDOM CATH FELL OFF SMALL AMOUNT UA ON CHUX NOTED THERE IS AN ORDER FOR TERRI
--- NOTE | 2021-04-25 09:41 | NUR ---
WOUND CARE CONSULT: PT PRESENTS WITH SACRAL DEEP TISSUE INJURY IN EVOLUTION, PRESENT ON ADMISSION. PT IS INCONTINENT OF LARGE AMOUNT OF URINE. RECOMMENDATIONS MADE FOR SKIN PROTECTION AND WOUND CARE. DISCUSSED WITH NURSING STAFF. IN AGREEMENT WITH PLAN OF CARE. FIRST STEP LOW AIRLOSS MATTRESS IS ON ORDER. Addendum: 04/25/21 at 0942 by DOMITILA PLUNKETT WNDNU Amended: Links added.
[2021-04-25] MEDS: ENOXAPARIN SODIUM 40 MG/0.4 ML DISP.SYRIN SQ SCH (10:53)
--- NOTE | 2021-04-25 14:37 | NUR ---
RN NOTES TRIED TO INSERT MURRAY CATHETER FR#14 AND 16 BUT NOTED WITH RESISTANCE DUE TO PT HAVING BPH. CONDOM CATHETER WAS PLACED INSTEAD. WILL CONTINUE TO MONITOR.
[2021-04-25 16:07] VITALS: BP 98/56
[2021-04-25] MEDS: PROSOURCE / PROSTAT (PYXIS) 30 ML UDC GT SCH (16:26)
[2021-04-25] MEDS: ATORVASTATIN 40 MG TABLET PO SCH (17:10)
--- NOTE | 2021-04-25 18:40 | NUR ---
VALIDATION TECHNICIAN CLOSING NOTES PT IN BED AWAKE AT THIS TIME. HOB KEPT ELEVATED AT 40 DECREES AT ALL TIMES. A/O X1 TO NAME ONLY. PT ON O2 VIA N/C @ 6LPM, TOLERATING WELL WITH NO ACUTE RESPIRATORY DISTRESS NOTED AT THIS TIME. PT ON EXTERNAL PORTFOLIO ANALYST WITH CURRENT READING OF NS, HR 98, NO CARDIAC DISTRESS OBSERVED DURING THE DAY. IV SL ON RIGHT FOOT G#22 INTACT, PATENT AND FLUSHES WELL. G-TUBE IN PLACE WITH FEEDING OF JEVITY 1.2 @ 65 ML/HR IN PROGRESS AND TOLERATING WELL. ASPIRATION PRECAUTIONS MAINTAINED. CONDOM CATH IN PLACE WITH CLEAR YELLOW URINE DRAINING TO BEDSIDE URINARY BAG. PT TURNED AND REPOSITIONED Q 2HRS AND PRN. ALL NEEDS AND CARE PROVIDED WELL. SAFETY MEASURES IN PLACE: BED IN LOWEST LOCKED POSITION WITH S/R UP X3. CALL LIGHT W/I EASY REACH.WILL ENDORSE AMRIK TO SHARPLES MACHINE OPERATOR
[2021-04-25 19:54] VITALS: BP 91/57
[2021-04-25 19:57] VITALS: BP 91/57
--- NOTE | 2021-04-25 20:49 | NUR ---
RT NOTE PT SX'D FOR LARGE AMOUNT OF THICK WHITE SECRETIONS. O2 TITRATED TO 4LNC SATURATING 98%
--- NOTE | 2021-04-25 21:30 | NUR ---
Condom catheter off patent appears to have voided small amount clear yellow urine on the under pad noted an order for placement castro catheter using a size 16 castro cath set inserted return was 500 ml murky white urine
[2021-04-25] MEDS: VANCOMYCIN 1 GM in IV D5W 250 ML IV SCH (22:08)
[2021-04-25] MEDS: TAMSULOSIN 0.4 MG CAP.SR.24H PO SCH (22:08)
[2021-04-26] VITALS (7 sets, daily range): BP systolic 93–116; BP diastolic 44–72
[2021-04-26] MEDS: ALBUTEROL FS 2.5 MG/0.5 ML VIAL.NEB NEB SCH ×4 (00:05→22:59)
[2021-04-26] MEDS: IPRATROPIUM NEB FS 0.5 MG/2.5 ML AMPUL.NEB NEB SCH ×4 (01:30→20:19)
[2021-04-26] MEDS: CEFEPIME 2 GM in IV D5W 100 ML IV SCH ×3 (04:19→21:27)
[2021-04-26 06:06] LABS: BILIRUBIN,TOTAL 0.3 mg/dL (0.2-1.0); CALCIUM, SERUM 8.2 mg/dL (8.5-10.1); CREATININE 0.9 mg/dL (0.6-1.3); POTASSIUM 3.2 mmol/L (3.5-5.1); TOTAL PROTEIN, SERUM 6.6 g/dL (6.4-8.2)
[2021-04-26 06:17] LABS: ALBUMIN 1.2 g/dL (3.4-5.0)
[2021-04-26 06:28] LABS: BASOPHILS % (AUTO) 0.3 % (0.0-2.0); EOSINOPHILS % (AUTO) 1.5 % (0.0-6.0); HEMATOCRIT 24 % (39-51); HEMOGLOBIN 7.7 g/dL (13.5-17.5); LYMPHOCYTES # (AUTO) 0.9 K/uL (0.8-4.8); LYMPHOCYTES % (AUTO) 5.9 % (20.0-44.0); MEAN CORPUSCULAR HGB CONC 33 g/dl (31.0-36.0); MEAN CORPUSCULAR VOLUME 83 fL (80-96); MONOCYTES # (AUTO) 0.9 K/uL (0.1-1.30); MONOCYTES % (AUTO) 5.4 % (2.0-12.0); NEUTROPHILS # (AUTO) 13.7 K/uL (1.8-8.9); NEUTROPHILS % (AUTO) 86.9 % (43.0-81.0); PLATELET COUNT (AUTO) 448 K/uL (150-450); RED BLOOD CELL COUNT(AUTO) 2.83 MIL/uL (4.5-6.0); WHITE BLOOD COUNT (AUTO) 15.8 K/uL (4.3-11.0)
--- NOTE | 2021-04-26 07:20 | NUR ---
USER SUPPORT SPECIALIST OPENING NOTES RECEIVED PT ASLEEP IN BED, AWAKENS EASILY TO TACTILE STIMULI. HOB ELEVATED. A/O X1 TO NAME ONLY. ON 02 VIA N/C AT 6LPM, TOLERATING WELL WITH NO SOB NOTED AT THIS TIME. ON EXTERNAL ACTIVITY COORDINATOR WITH CURRENT READING OF ST, HR 103, NO CARDIAC DISTRESS OBSERVED. IV SL ON RIGHT FOOT G#22 INTACT, PATENT AND FLUSHES WELL. G-TUBE INTACT AND PATENT, GTF OF JEVITY 1.2 @ 65 ML/HR IN PROGRESS, TOLERATING WELL. ASPIRATION PRECAUTIONS MAINTAINED. SAFETY MEASURES IN PLACE: BED IN LOWEST LOCKED POSITION WITH S/R UP X3. HOB KEPT ELEVATED AT 40 DEGREES AT ALL TIMES AND CALL LIGHT W/I EASY REACH. WILL CONTINUE TO MONITOR PT.
[2021-04-26] MEDS ORDERED: POTASSIUM CHLORIDE 20 MEQ TAB.PRT.SR PO ONE (08:30)
[2021-04-26] MEDS: ENOXAPARIN SODIUM 40 MG/0.4 ML DISP.SYRIN SQ SCH (08:36)
[2021-04-26] MEDS: PROSOURCE / PROSTAT (PYXIS) 30 ML UDC GT SCH ×2 (08:37→17:10)
[2021-04-26] MEDS: MULTIVITAMINS,THERAGRAN 1 UDTAB TABLET PO SCH (08:37)
[2021-04-26] MEDS: ASPIRIN EC 81 MG TABLET.DR PO SCH (08:37)
[2021-04-26] MEDS: GABAPENTIN 300 MG CAPSULE PO SCH ×4 (08:37→21:38)
[2021-04-26] MEDS: PANTOPRAZOLE 40 MG TABLET.DR PO SCH (08:37)
[2021-04-26] MEDS: VANCOMYCIN 1 GM in IV D5W 250 ML IV SCH (15:02)
[2021-04-26] MEDS: ATORVASTATIN 40 MG TABLET PO SCH (17:10)
--- NOTE | 2021-04-26 18:53 | NUR ---
CONTRACT SERVICEMAN NOTES PT IN BED ASLEEP AT THIS TIME, EASILY AWAKENS. HOB KEPT ELEVATED AT 40 DEGREES AT ALL TIMES. A/O X1 TO NAME ONLY. PT ON O2 VIA N/C @ 6LPM, TOLERATING WELL WITH NO ACUTE RESPIRATORY DISTRESS NOTED AT THIS TIME. PT ON EXTERNAL WHEAT AND OATS FLAKE MILLER WITH CURRENT READING OF NSR WITH BBB'S, HR 96, NO CARDIAC DISTRESS OBSERVED NOTED DURING THE DAY. IV SL ON RIGHT FOOT G#22 INTACT, PATENT AND FLUSHES WELL. G-TUBE IN PLACE WITH FEEDING OF JEVITY 1.2 @ 65 ML/HR IN PROGRESS AND TOLERATING WELL. ASPIRATION PRECAUTIONS MAINTAINED. MURRAY CATHETER IN PLACE WITH CLOUDY YELLOW WITH SEDIMENTS URINE DRAINING TO BEDSIDE URINARY BAG, MURRAY CARE DONE. PT TURNED AND REPOSITIONED Q 2HRS AND PRN. ALL NEEDS AND CARE PROVIDED WELL. SAFETY MEASURES IN PLACE: BED IN LOWEST LOCKED POSITION WITH S/R UP X3. CALL LIGHT W/I EASY REACH.WILL ENDORSE AMRIK TO CHARGE LPN
--- NOTE | 2021-04-26 20:43 | NUR ---
MS/TELE/RN DURING INITIAL SHIFT ASSESSMENT, PATIENT WAS IN BED AWAKE, PASSIVE AFFECT, NON VERBALLY RESPONSIVE, HOB ELEVATE, G TUBED FEEDING INFUSING. ORAL SECRETIONS NOTED, SUCTIONED PATIENT WITH THICK, WHITE SECRETIONS NOTED, PATIENT APPEARED TO BE IN NO DISTRESS, FALL PRECAUTIONS PER PROTOCOL. WILL MONITOR.
[2021-04-26] MEDS: TAMSULOSIN 0.4 MG CAP.SR.24H PO SCH (21:38)
[2021-04-27] VITALS (11 sets, daily range): BP systolic 92–107; BP diastolic 53–72
[2021-04-27] MEDS: JEVITY 1.2 CAL 1,000 ML BOTTLE GT PRN ×2 (01:18→21:47)
[2021-04-27] MEDS: IPRATROPIUM NEB FS 0.5 MG/2.5 ML AMPUL.NEB NEB SCH ×4 (01:30→20:06)
[2021-04-27] MEDS: CEFEPIME 2 GM in IV D5W 100 ML IV SCH ×3 (05:18→23:42)
--- NOTE | 2021-04-27 06:35 | NUR ---
MS/TELE/RN PATIENT IS AWAKE, ALERT, ORIENTED, COMFORTABLE, NO SIGNS OF DISTRESS NOTED, ALL NEEDS ATTENDED AT THIS TIME, WILL CONTINUE TO MONITOR.
[2021-04-27 06:45] LABS: BASOPHILS # (AUTO) 0.1 K/uL (0.0-0.2); BASOPHILS % (AUTO) 0.8 % (0.0-2.0); EOSINOPHILS % (AUTO) 1.1 % (0.0-6.0); LYMPHOCYTES # (AUTO) 1.3 K/uL (0.8-4.8); LYMPHOCYTES % (AUTO) 7.6 % (20.0-44.0); MEAN CORPUSCULAR HGB CONC 31 g/dl (31.0-36.0); MEAN CORPUSCULAR VOLUME 83 fL (80-96); NEUTROPHILS # (AUTO) 14.1 K/uL (1.8-8.9); NEUTROPHILS % (AUTO) 84.5 % (43.0-81.0); PLATELET COUNT (AUTO) 460 K/uL (150-450); RED BLOOD CELL COUNT(AUTO) 2.44 MIL/uL (4.5-6.0); WHITE BLOOD COUNT (AUTO) 16.7 K/uL (4.3-11.0)
[2021-04-27 07:14] LABS: BILIRUBIN,TOTAL 0.2 mg/dL (0.2-1.0); CREATININE 0.8 mg/dL (0.6-1.3); MAGNESIUM 2.1 mg/dL (1.8-2.4); POTASSIUM 3.5 mmol/L (3.5-5.1); TOTAL PROTEIN, SERUM 6.8 g/dL (6.4-8.2)
--- NOTE | 2021-04-27 07:37 | NUR ---
RN OPENING NOTE- PT ASLEEP IN BED, EASILY AWAKENED, HOB ELEVATED. ORIENTED TO PERSON ONLY . ON 02 VIA N/C AT 6LPM, TOLERATING WELL WITH NO SOB NOTED AT THIS TIME. IV SL ON RIGHT FOOT G#22 INTACT, PATENT AND FLUSHES WELL. G-TUBE INTACT AND PATENT, GTF OF JEVITY 1.2 @ 65 ML/HR IN PROGRESS, TOLERATING WELL. ASPIRATION PRECAUTIONS MAINTAINED. SAFETY MEASURES IN PLACE: BED IN LOWEST LOCKED POSITION WITH S/R UP X3. HOB KEPT ELEVATED AT 40 DEGREES AT ALL TIMES AND CALL LIGHT W/I EASY REACH. WILL CONTINUE TO MONITOR PT.
[2021-04-27] MEDS: ALBUTEROL FS 2.5 MG/0.5 ML VIAL.NEB NEB SCH ×2 (07:40→14:43)
[2021-04-27 08:10] LABS: HEMATOCRIT 20 % (39-51); HEMOGLOBIN 6.3 g/dL (13.5-17.5)
[2021-04-27 08:59] LABS: ALBUMIN 1.3 g/dL (3.4-5.0)
[2021-04-27] MEDS: ENOXAPARIN SODIUM 40 MG/0.4 ML DISP.SYRIN SQ SCH (09:00)
[2021-04-27] MEDS: ASPIRIN EC 81 MG TABLET.DR PO SCH (09:00)
--- NOTE | 2021-04-27 09:10 | NUR ---
RN NOTE- HGB- 6.3, HCT- 20. DR HARPER ORDERED ONE UNIT PRBC TRANSFUSION. COMPLIED./
[2021-04-27] MEDS: MULTIVITAMINS,THERAGRAN 1 UDTAB TABLET PO SCH (09:41)
[2021-04-27] MEDS: GABAPENTIN 300 MG CAPSULE PO SCH ×4 (09:41→21:47)
[2021-04-27] MEDS: PANTOPRAZOLE 40 MG TABLET.DR PO SCH (09:41)
[2021-04-27] MEDS: PROSOURCE / PROSTAT (PYXIS) 30 ML UDC GT SCH ×2 (09:42→17:21)
[2021-04-27] MEDS: VANCOMYCIN 1 GM in IV D5W 250 ML IV SCH (10:20)
[2021-04-27 12:01] LABS: LYMPHOCYTES % (MANUAL) 8 % (16-48); MONOCYTES % (MANUAL) 2 % (0-11.0); NEUTROPHILS % (MANUAL) 90 (42-76)
[2021-04-27] MEDS: FLUCONAZOLE IN NS 100 MG in PREMIX 1 EA IV SCH (13:19)
[2021-04-27] MEDS: ATORVASTATIN 40 MG TABLET PO SCH (17:21)
--- NOTE | 2021-04-27 18:58 | NUR ---
RN CLOSING NOTE- PT IN BED ALERT APHASIC, WATCHING OLD MOVIES ON TV. PT SOMNOLENT AT TIMES. GT JEVITY AT 65/HR WITHOUT COMPLICATIONS. IVF NS @ KVO@ 10/HR TO RT FOOT. PT BATHED, MEDS PER ORDERS, SUCTIONED BY RT. COMFORTABLE, BED LOCKED, SIDE RAILS UP, CALL LIGHT CLOSE. PT TO HAVE ONE UNIT PRBC. AWAITING FROM LAB.
--- NOTE | 2021-04-27 19:30 | NUR ---
MS/TELE/RN RECEIVED PATIENT IN BED AWAKE, PASSIVE AFFECT, COMFORTABLE, NO SIGNS OF DISTRESS NOTED, G TUBE FEEDING INFUSING, HOB ELEVATED, CALL LIGHT IN REACH. WILL MONITOR.
--- NOTE | 2021-04-27 20:33 | NUR ---
MS/TELE/RN PRBC UNIT ONE WAS STARTED AT 2029. WILL MONITOR PATIENT PER PROTOCOL.
--- NOTE | 2021-04-27 20:39 | NUR ---
RT nt suction performed
[2021-04-27] MEDS: TAMSULOSIN 0.4 MG CAP.SR.24H PO SCH (21:47)
--- NOTE | 2021-04-27 23:02 | NUR ---
MS/TELE/RN PATIENT IS SLEEPING AT THIS TIME, APPEAR COMFORTABLE, NO SIGNS OF DISTRESS NOTED, HOB ELEVATED, WILL CONTINUE TO MONITOR.
--- NOTE | 2021-04-27 23:40 | NUR ---
MS/TELE/RN BLOOD TRANSFUSION FINISHED, VITAL SIGNS STABLE, AFEBRILE, NO S/S OF TRANSFUSION REACTION. WILL CONTINUE TO MONITOR.
[2021-04-28] VITALS: BP 107/55
[2021-04-28] MEDS: ALBUTEROL FS 2.5 MG/0.5 ML VIAL.NEB NEB SCH ×4 (00:29→23:31)
[2021-04-28] MEDS: IPRATROPIUM NEB FS 0.5 MG/2.5 ML AMPUL.NEB NEB SCH ×4 (00:32→20:08)
[2021-04-28 04:00] VITALS: BP 111/68
[2021-04-28] MEDS: CEFEPIME 2 GM in IV D5W 100 ML IV SCH ×3 (05:35→21:53)
[2021-04-28 06:03] LABS: BASOPHILS # (AUTO) 0.1 K/uL (0.0-0.2); BASOPHILS % (AUTO) 0.5 % (0.0-2.0); EOSINOPHILS % (AUTO) 0.7 % (0.0-6.0); HEMATOCRIT 23 % (39-51); HEMOGLOBIN 7.6 g/dL (13.5-17.5); LYMPHOCYTES # (AUTO) 1.1 K/uL (0.8-4.8); MEAN CORPUSCULAR HGB CONC 33 g/dl (31.0-36.0); MEAN CORPUSCULAR VOLUME 83 fL (80-96); MONOCYTES % (AUTO) 6.4 % (2.0-12.0); NEUTROPHILS # (AUTO) 13.9 K/uL (1.8-8.9); NEUTROPHILS % (AUTO) 85.4 % (43.0-81.0); PLATELET COUNT (AUTO) 508 K/uL (150-450); RED BLOOD CELL COUNT(AUTO) 2.79 MIL/uL (4.5-6.0); WHITE BLOOD COUNT (AUTO) 16.3 K/uL (4.3-11.0)
--- NOTE | 2021-04-28 06:24 | NUR ---
MS/TELE/RN PATIENT IS AWAKE, APPEAR COMFORTABLE, NO SIGNS OF DISTRESS NOTED, HOB ELEVATED, G TUBE FEEDING INFUSING, ALL NEEDS ATTENDED AT THIS TIME, WILL CONTINUE TO MONITOR.
[2021-04-28 07:01] LABS: BILIRUBIN,TOTAL 0.3 mg/dL (0.2-1.0); CALCIUM, SERUM 8.4 mg/dL (8.5-10.1); CREATININE 0.8 mg/dL (0.6-1.3); MAGNESIUM 2.1 mg/dL (1.8-2.4); PHOSPHORUS 3.1 mg/dL (2.5-4.9); TOTAL PROTEIN, SERUM 7.1 g/dL (6.4-8.2)
[2021-04-28 07:02] LABS: ALBUMIN 1.4 g/dL (3.4-5.0)
--- NOTE | 2021-04-28 07:35 | NUR ---
nasal cannula xygen flow decreased from 6 lpm to 3 lpm oxygenflow due to 98% saturation. Addendum: 04/28/21 at 0736 by LEXA WOODS RT Amended: Links added.
--- NOTE | 2021-04-28 07:46 | NUR ---
COMMUNITY MENTAL HEALTH WORKER OPENING NOTE RECEIVED PT ON BED ALERT, PATIENT IS NON-VERBAL BUT NODS HEAD APPROPRIATELY TO SIMPLE QUESTIONS. HOB ELEVATED. ON 02 VIA N/C AT 6LPM, TOLERATING WELL WITH NO SOB NOTED AT THIS TIME. IV SL ON RIGHT FOOT G#22 AND LEFT FOREARM G#22 INTACT, PATENT AND FLUSHES WELL. G-TUBE INTACT AND PATENT, GTF OF JEVITY 1.2 @ 65 ML/HR IN PROGRESS, TOLERATING WELL. ASPIRATION PRECAUTIONS MAINTAINED. SAFETY MEASURES IN PLACE: BED IN LOWEST LOCKED POSITION WITH S/R UP X3. HOB KEPT ELEVATED AT ALL TIMES AND CALL LIGHT AND BEDSIDE TABLE WITHIN REACH. WILL CONTINUE TO MONITOR PT.
[2021-04-28] MEDS: MULTIVITAMINS,THERAGRAN 1 UDTAB TABLET PO SCH (08:58)
[2021-04-28] MEDS: GABAPENTIN 300 MG CAPSULE PO SCH ×4 (08:58→21:53)
[2021-04-28] MEDS: PANTOPRAZOLE 40 MG TABLET.DR PO SCH (08:58)
[2021-04-28] MEDS: ASPIRIN EC 81 MG TABLET.DR PO SCH (08:58)
[2021-04-28 09:00] VITALS: BP 105/70
[2021-04-28] MEDS: ENOXAPARIN SODIUM 40 MG/0.4 ML DISP.SYRIN SQ SCH (09:00)
[2021-04-28] MEDS: PROSOURCE / PROSTAT (PYXIS) 30 ML UDC GT SCH ×2 (09:07→17:13)
--- NOTE | 2021-04-28 09:30 | NUR ---
LAWYER PROBATE NOTE G-TUBE FEEDING ON HOLD BECAUSE OF RESIDUAL VOLUME OF 120ML. WILL CONTINUE TO MONITOR PATIENT.
--- NOTE | 2021-04-28 09:45 | NUR ---
CERTIFIED NURSE OPERATING ROOM NOTE PATEINT'S LATEST HG IS 7.6 POST BLOOD TRANSFUSION. PRIOR TO BLOOD TRANSFUSION, HG WAS 6.3. PATIENT DOES NOT EXHIBIT ANY SIGNS AND SYMPTOMS OF BLEEDING. MD NOTIFIED WITH ORDER TO HOLD ENOXAPARIN TODAY. MEDICATION NOT ADMINISTERED. WILL CONTINUE TO MONITOR PATIENT.
[2021-04-28] MEDS: FLUCONAZOLE IN NS 100 MG in PREMIX 1 EA IV SCH (12:21)
--- NOTE | 2021-04-28 12:40 | NUR ---
CIRCULATION ANALYST NOTE PATIENT SEEN BY DR. OCAMPO. WITH ORDER TO CONTINUE G-TUBE FEEDING ONCE RESIDUAL IS LESS THAN 100ML. LATEST RESIDUAL IS AT 210 ML. MD AWARE. WILL CONTINUE TO MONITOR PATIENT. RANDOM BS CHECKED 118 MG/DL
[2021-04-28] MEDS: ATORVASTATIN 40 MG TABLET PO SCH (17:13)
--- NOTE | 2021-04-28 19:00 | NUR ---
TOBACCO STRIPPER HAND CLOSING NOTE PT ON BED ALERT, PATIENT IS NON-VERBAL BUT NODS HEAD APPROPRIATELY TO SIMPLE QUESTIONS. HOB ELEVATED. ON 02 VIA N/C AT 6LPM, TOLERATING WELL WITH NO SOB NOTED AT THIS TIME. IV SL ON RIGHT FOOT G#22 AND LEFT FOREARM G#22 INTACT, PATENT AND FLUSHES WELL. G-TUBE INTACT AND PATENT, GTF OF JEVITY 1.2 @ 60 ML/HR IN PROGRESS, TOLERATING WELL. ASPIRATION PRECAUTIONS MAINTAINED. SAFETY MEASURES IN PLACE: BED IN LOWEST LOCKED POSITION WITH S/R UP X3. HOB KEPT ELEVATED AT ALL TIMES AND CALL LIGHT AND BEDSIDE TABLE WITHIN REACH. WILL ENDORSE TO NEXT SHIFT FOR CONTINUITY OF CARE
[2021-04-28 20:00] VITALS: BP 96/68
--- NOTE | 2021-04-28 20:23 | NUR ---
MS/TELE/RN PATIENT IS AWAKE, NON VERBAL, COMFORTABLE, NO DISTRESS NOTED, HOB ELEVATED, G TUBE FEEDING INFUSING, WILL MONITOR.
[2021-04-28] MEDS: TAMSULOSIN 0.4 MG CAP.SR.24H PO SCH (21:53)
[2021-04-29] VITALS: BP 93/46
--- NOTE | 2021-04-29 01:33 | NUR ---
MS/TELE/RN PATIENT IS SLEEPING AT THIS THIS TIME, APPEARS COMFORTABLE, NO SIGNS OF DISTRESS NOTED, CALL LIGHT IN REACH, WILL CONTINUE TO MONITOR.
[2021-04-29] MEDS: IPRATROPIUM NEB FS 0.5 MG/2.5 ML AMPUL.NEB NEB SCH ×4 (01:39→20:08)
[2021-04-29 04:00] VITALS: BP 92/57
[2021-04-29] MEDS: JEVITY 1.2 CAL 1,000 ML BOTTLE GT PRN (05:05)
[2021-04-29] MEDS: CEFEPIME 2 GM in IV D5W 100 ML IV SCH ×3 (05:06→21:27)
--- NOTE | 2021-04-29 06:12 | NUR ---
MS/TELE/RN PATIENT IS SLEEPING, APPEAR COMFORTABLE, NO SIGNS OF DISTRESS NOTED, HOB ELEVATED, ALL NEEDS ATTENDED AT THIS TIME, WILL CONTINUE TO MONITOR.
[2021-04-29 06:49] LABS: BASOPHILS # (AUTO) 0.2 K/uL (0.0-0.2); EOSINOPHILS % (AUTO) 0.9 % (0.0-6.0); HEMATOCRIT 23 % (39-51); HEMOGLOBIN 7.4 g/dL (13.5-17.5); LYMPHOCYTES # (AUTO) 1.6 K/uL (0.8-4.8); LYMPHOCYTES % (AUTO) 10.1 % (20.0-44.0); MEAN CORPUSCULAR HGB CONC 33 g/dl (31.0-36.0); MEAN CORPUSCULAR VOLUME 84 fL (80-96); MONOCYTES # (AUTO) 0.9 K/uL (0.1-1.30); MONOCYTES % (AUTO) 6.2 % (2.0-12.0); NEUTROPHILS # (AUTO) 12.5 K/uL (1.8-8.9); NEUTROPHILS % (AUTO) 81.8 % (43.0-81.0); PLATELET COUNT (AUTO) 346 K/uL (150-450); RED BLOOD CELL COUNT(AUTO) 2.74 MIL/uL (4.5-6.0); WHITE BLOOD COUNT (AUTO) 15.3 K/uL (4.3-11.0)
--- NOTE | 2021-04-29 07:12 | NUR ---
DRUG AND ALCOHOL COUNSELOR OPENING NOTE RECEIVED PT ON BED ALERT, PATIENT IS NON-VERBAL. HOB ELEVATED. ON 02 VIA N/C AT 6LPM, TOLERATING WELL WITH NO SOB NOTED AT THIS TIME. IV SL ON RIGHT FOOT G#22 AND LEFT FOREARM G#22 INTACT, PATENT AND FLUSHES WELL. G-TUBE INTACT AND PATENT, GTF OF JEVITY 1.2 @ 20 ML/HR IN PROGRESS, TOLERATING WELL. ASPIRATION PRECAUTIONS MAINTAINED. WITH MURRAY CATHETER TO URINE BAG WITH LIGHT YELLOW URINE. SAFETY MEASURES IN PLACE: BED IN LOWEST LOCKED POSITION WITH S/R UP X3. HOB KEPT ELEVATED AT ALL TIMES AND CALL LIGHT AND BEDSIDE TABLE WITHIN REACH. WILL CONTINUE TO MONITOR PT.
[2021-04-29 07:13] LABS: BILIRUBIN,TOTAL 0.3 mg/dL (0.2-1.0); CALCIUM, SERUM 8.7 mg/dL (8.5-10.1); CREATININE 0.8 mg/dL (0.6-1.3); MAGNESIUM 2.3 mg/dL (1.8-2.4); PHOSPHORUS 3.6 mg/dL (2.5-4.9); POTASSIUM 3.8 mmol/L (3.5-5.1); TOTAL PROTEIN, SERUM 7.2 g/dL (6.4-8.2)
[2021-04-29 07:38] LABS: ALBUMIN 1.4 g/dL (3.4-5.0)
[2021-04-29] MEDS: ALBUTEROL FS 2.5 MG/0.5 ML VIAL.NEB NEB SCH ×3 (07:49→23:19)
[2021-04-29] MEDS: ENOXAPARIN SODIUM 40 MG/0.4 ML DISP.SYRIN SQ SCH (09:00)
[2021-04-29] MEDS: GABAPENTIN 300 MG CAPSULE PO SCH ×4 (09:15→21:29)
[2021-04-29] MEDS: PANTOPRAZOLE 40 MG TABLET.DR PO SCH (09:15)
[2021-04-29] MEDS: PROSOURCE / PROSTAT (PYXIS) 30 ML UDC GT SCH ×2 (09:15→17:37)
[2021-04-29] MEDS: ASPIRIN EC 81 MG TABLET.DR PO SCH (09:15)
[2021-04-29] MEDS: MULTIVITAMINS,THERAGRAN 1 UDTAB TABLET PO SCH (09:15)
[2021-04-29] MEDS: FLUCONAZOLE IN NS 100 MG in PREMIX 1 EA IV SCH (13:31)
[2021-04-29] MEDS: ATORVASTATIN 40 MG TABLET PO SCH (17:37)
--- NOTE | 2021-04-29 19:00 | NUR ---
BLOCKING MACHINE OPERATOR SECOND CLOSING NOTE PT ON BED ALERT, PATIENT IS NON-VERBAL. HOB ELEVATED. ON 02 VIA N/C AT 6LPM, TOLERATING WELL WITH NO SOB NOTED AT THIS TIME. IV SL ON RIGHT FOOT G#22 AND LEFT FOREARM G#22 INTACT, PATENT AND FLUSHES WELL. G-TUBE INTACT AND PATENT, GTF OF JEVITY 1.2 @ 20 ML/HR IN PROGRESS, TOLERATING WELL. ASPIRATION PRECAUTIONS MAINTAINED. WITH MURRAY CATHETER TO URINE BAG WITH LIGHT YELLOW URINE. SAFETY MEASURES IN PLACE: BED IN LOWEST LOCKED POSITION WITH S/R UP X3. HOB KEPT ELEVATED AT ALL TIMES AND CALL LIGHT AND BEDSIDE TABLE WITHIN REACH. WILL ENDORSE TO NEXT SHIFT FOR CONTINUITY OF CARE.
--- NOTE | 2021-04-29 19:30 | NUR ---
RN OPENING NOTE PATIENT IN BED, EYES OPEN, AWAKE. PATIENT IS ABLE TO STATE FIRST NAME AND ANSWERS IF IN PAIN. PATIENT IS ON 3L OF O2 SUPPLEMENT, TOLERATING WELL. PATIENT HAS PRODUCTIVE COUGH. MURRAY CATHETER IN PLACE DRAINING VIA GRAVITY. G TUBE FEEDING JEVITY 1.2 ON 50 ML/HR WHEN RECEIVED, RESIDUAL 40 ML. INCREASED RATE TO 55 ML/HR. R FOOT 22 G AND LFA 22 G PATENT AND INTACT. TELE MONITOR READS ST 102 BPM. SAFETY MEASURES IN PLACE: BED LOCKED AND IN LOWEST POSITION, CALL LIGHT WITHIN REACH, SIDE RAILS UP, BED ALARM ON. WILL MONITOR PATIENT CLOSELY.
[2021-04-29 20:00] VITALS: BP 102/62
[2021-04-29] MEDS: TAMSULOSIN 0.4 MG CAP.SR.24H PO SCH (21:29)
--- NOTE | 2021-04-29 22:30 | NUR ---
RN NOTE RESIDUAL CHECKED AT 2100, VOLUME IS 40 ML. INCREASED GT FEEDING TO 65 ML/HR. RECHECKED RESIDUAL AFTER INCREASE, 45 ML/HR. KEEPING GT FEEDING RATE AT 65 ML/HR.
[2021-04-30] VITALS (8 sets, daily range): BP systolic 98–113; BP diastolic 60–72
[2021-04-30] MEDS: IPRATROPIUM NEB FS 0.5 MG/2.5 ML AMPUL.NEB NEB SCH ×4 (01:50→20:07)
[2021-04-30] MEDS: CEFEPIME 2 GM in IV D5W 100 ML IV SCH ×2 (04:40→20:37)
[2021-04-30] MEDS: JEVITY 1.2 CAL 1,000 ML BOTTLE GT PRN (04:40)
--- NOTE | 2021-04-30 05:00 | NUR ---
RN NOTE GT RESIDUAL 140 ML. WILL HOLD GT FEEDING UNTIL 0600 THEN RESTART AT 20 ML/HR.
[2021-04-30 06:07] LABS: BASOPHILS # (AUTO) 0.1 K/uL (0.0-0.2); BASOPHILS % (AUTO) 0.7 % (0.0-2.0); EOSINOPHILS % (AUTO) 0.9 % (0.0-6.0); HEMATOCRIT 22 % (39-51); LYMPHOCYTES # (AUTO) 1.2 K/uL (0.8-4.8); LYMPHOCYTES % (AUTO) 9.4 % (20.0-44.0); MEAN CORPUSCULAR HGB CONC 31 g/dl (31.0-36.0); MEAN CORPUSCULAR VOLUME 85 fL (80-96); MONOCYTES # (AUTO) 0.8 K/uL (0.1-1.30); MONOCYTES % (AUTO) 5.9 % (2.0-12.0); NEUTROPHILS # (AUTO) 10.9 K/uL (1.8-8.9); NEUTROPHILS % (AUTO) 83.1 % (43.0-81.0); PLATELET COUNT (AUTO) 491 K/uL (150-450); RED BLOOD CELL COUNT(AUTO) 2.59 MIL/uL (4.5-6.0); WHITE BLOOD COUNT (AUTO) 13.1 K/uL (4.3-11.0)
[2021-04-30 06:30] LABS: BILIRUBIN,TOTAL 0.2 mg/dL (0.2-1.0); CALCIUM, SERUM 8.6 mg/dL (8.5-10.1); CREATININE 0.7 mg/dL (0.6-1.3); MAGNESIUM 2.1 mg/dL (1.8-2.4); PHOSPHORUS 2.9 mg/dL (2.5-4.9); POTASSIUM 3.6 mmol/L (3.5-5.1); TOTAL PROTEIN, SERUM 7.1 g/dL (6.4-8.2)
[2021-04-30 06:36] LABS: HEMOGLOBIN 6.9 g/dL (13.5-17.5)
--- NOTE | 2021-04-30 06:57 | NUR ---
RN CLOSING NOTE PATIENT IN BED, EYES OPEN. PATIENT SELECTIVELY MUTE/MOSTLY NONVERBAL. PATIENT ABLE TO SAY HIS NAME OR ANSWER IF HE IS IN PAIN AT TIMES. PATIENT IS ON 3 L OF 02 SUPPLEMENT, TOLERATING WELL WITH SATURATION OF 96%. PATIENT HAS A MURRAY CATH PRESENT, DRAINING CLOUDY YELLOW URINE. WOUND CARE RENDERED. G TUBE FEEDING AT 20 ML/HR AT THIS TIME. WILL RECHECK RESIDUAL. LAB CALLED FOR CRITICAL LAB HGB OF 6.9. PAGED DR. DINH, WAITING FOR CALL BACK. SAFETY MEASURES IMPLEMENTED, ALL ORDERS CARRIED OUT, ALL NEEDS MET AND ATTENDED. WILL ENDORSE TO DAY SHIFT NURSE FOR [facility]. Addendum: 04/30/21 at 0701 by BENTIA FRIAS RN TELE MONITOR READS ST 115 BPM
--- NOTE | 2021-04-30 07:00 | NUR ---
RN NOTE GT RESIDUAL CHECKED, 50 ML VOLUME ASPIRATED. INCREASE GT FEEDING RATE TO 30 ML/HR.
[2021-04-30 07:47] LABS: ALBUMIN 1.4 g/dL (3.4-5.0)
[2021-04-30] MEDS: ALBUTEROL FS 2.5 MG/0.5 ML VIAL.NEB NEB SCH ×2 (07:58→13:31)
--- NOTE | 2021-04-30 08:16 | NUR ---
TELE/RN OPENING NOTE RECEIVED PATIENT IN BED, EYES OPEN. PATIENT SELECTIVELY MUTE/MOSTLY NONVERBAL. PATIENT IS ON 3 L OF 02 SUPPLEMENT, TOLERATING WELL WITH SATURATION OF 97%. PATIENT HAS A MURRAY CATH PRESENT, DRAINING CLOUDY YELLOW URINE. G-TUBE FEEDING AT 30 ML/HR AT THIS TIME. WILL RECHECK RESIDUAL. SAFETY MEASURES IMPLEMENTED, BED LOCKED ON LOWEST POSITION, SIDE RAILS UPX3, CALL LIGHT WITHIN EASY REACH. WILL CONTINUE TO MONITOR PATIENT.
--- NOTE | 2021-04-30 08:28 | NUR ---
WOUND CARE CONSULT: PT PRESENTS WITH RASH AND PEELING SKIN TO PERINEUM, SCROTUM AND GROIN FOLDS. RECOMMENDATIONS MADE AND DISCUSSED WITH NURSING STAFF. MD IN AGREEMENT WITH PLAN OF CARE.
[2021-04-30] MEDS: ENOXAPARIN SODIUM 40 MG/0.4 ML DISP.SYRIN SQ SCH (09:00)
[2021-04-30] MEDS: PANTOPRAZOLE 40 MG TABLET.DR PO SCH (09:13)
[2021-04-30] MEDS: GABAPENTIN 300 MG CAPSULE PO SCH ×4 (09:13→20:38)
[2021-04-30] MEDS: ASPIRIN EC 81 MG TABLET.DR PO SCH (09:13)
[2021-04-30] MEDS: MULTIVITAMINS,THERAGRAN 1 UDTAB TABLET PO SCH (09:13)
[2021-04-30] MEDS: PROSOURCE / PROSTAT (PYXIS) 30 ML UDC GT SCH ×2 (09:14→18:27)
--- NOTE | 2021-04-30 09:21 | NUR ---
TELE/RN NOTES- LOVENOX LOVENOX SUBQ WITHHELD DUE TO LOW H&H. WILL CONTINUE TO MONITOR.
[2021-04-30] MEDS: CLOTRIMAZOLE 1% 15 GM TUBE TP SCH ×2 (13:02→18:27)
[2021-04-30] MEDS: FLUCONAZOLE IN NS 100 MG in PREMIX 1 EA IV SCH (13:04)
--- NOTE | 2021-04-30 15:10 | NUR ---
MS/RN NOTES- STARTED BLOOD TRANSFUSION 1 BAG OF PRBC STARTED INFUSING AT 60ML/HR.
--- NOTE | 2021-04-30 15:27 | NUR ---
MS/RN NOTES V/S WITHIN BASELINE. NO S/S OF ADVERSE REACTION NOTED FOR BLOOD INFUSION. PRBC FLOW RATE INCREASE TO 100ML/HR. WILL CONTINUE TO MONITOR.
[2021-04-30] MEDS: ATORVASTATIN 40 MG TABLET PO SCH (18:27)
--- NOTE | 2021-04-30 19:04 | NUR ---
MS/RN NOTES- BLOOD TRANSFUSION 1 BAG OF PRBC DONE WITH NO S/S OF ADVERSE REACTION NOTED.
--- NOTE | 2021-04-30 19:30 | NUR ---
RN OPENING NOTE PATIENT IN BED, EYES OPEN, AWAKE. PATIENT IS ABLE TO STATE FIRST NAME AND ANSWERS IF IN PAIN. PATIENT IS ON 3L OF O2 SUPPLEMENT, TOLERATING WELL. PATIENT HAS PRODUCTIVE COUGH. MURRAY CATHETER IN PLACE DRAINING VIA GRAVITY. G TUBE FEEDING JEVITY 1.2 ON 30 ML/HR WHEN RECEIVED, RESIDUAL 40 ML. INCREASED RATE TO 45 ML/HR. R FOOT 22 G PATENT AND INTACT, STILL HAS ON GOING NS FLUSH. S/P BLOOD TRANSFUSION. PATIENT FOR DISCHARGED. PER MANJULA NAGEL, PATIENT IS SCHEDULED TO GET PICKED UP AT 2100, WILL GET D/C TO [facility]. SAFETY MEASURES IN PLACE: BED LOCKED AND IN LOWEST POSITION, CALL LIGHT WITHIN REACH, SIDE RAILS UP, BED ALARM ON. WILL MONITOR PATIENT CLOSELY.
[2021-04-30] MEDS: TAMSULOSIN 0.4 MG CAP.SR.24H PO SCH (22:10)
--- NOTE | 2021-04-30 22:30 | NUR ---
RN NOTE CALLED [facility], LISA STATES THAT TRANSPORTATION WAS CANCELLED BY NURSE D/T PATIENT NOT BEING READY. INFORMED LISA THAT WE DID NOT CANCEL AND IF WE COULD SCHEDULE SOON POSSIBLE. STATES THAT TIME FRAME IS 4 HOURS OR LONGER. CALLED REHAB FACILITY TO INFORM THEM OF THE CHANGE OF SCHEDULE. THEY SAID THAT IT DOES NOT MATTER WHAT TIME THE PATIENT COMES, BUT GIVE THEM A CALL FIRST WHEN TRANSPORT GETS HERE.
[2021-05-01] MEDS: ALBUTEROL FS 2.5 MG/0.5 ML VIAL.NEB NEB SCH ×2 (00:03→09:06)
[2021-05-01] MEDS: IPRATROPIUM NEB FS 0.5 MG/2.5 ML AMPUL.NEB NEB SCH ×2 (01:42→09:06)
[2021-05-01] MEDS: CEFEPIME 2 GM in IV D5W 100 ML IV SCH (05:23)
--- NOTE | 2021-05-01 05:52 | NUR ---
RN NOTE 102.1 TEMP. TYLENOL AND COOLING MEASURES IMPLEMENTED
[2021-05-01 06:50] LABS: BASOPHILS # (AUTO) 0.1 K/uL (0.0-0.2); BASOPHILS % (AUTO) 0.4 % (0.0-2.0); EOSINOPHILS % (AUTO) 0.3 % (0.0-6.0); HEMATOCRIT 28 % (39-51); HEMOGLOBIN 8.9 g/dL (13.5-17.5); LYMPHOCYTES # (AUTO) 0.9 K/uL (0.8-4.8); LYMPHOCYTES % (AUTO) 3.9 % (20.0-44.0); MEAN CORPUSCULAR HGB CONC 32 g/dl (31.0-36.0); MEAN CORPUSCULAR VOLUME 84 fL (80-96); MONOCYTES # (AUTO) 0.8 K/uL (0.1-1.30); MONOCYTES % (AUTO) 3.6 % (2.0-12.0); NEUTROPHILS # (AUTO) 20.6 K/uL (1.8-8.9); NEUTROPHILS % (AUTO) 91.8 % (43.0-81.0); PLATELET COUNT (AUTO) 586 K/uL (150-450); RED BLOOD CELL COUNT(AUTO) 3.31 MIL/uL (4.5-6.0); WHITE BLOOD COUNT (AUTO) 22.5 K/uL (4.3-11.0)
--- NOTE | 2021-05-01 06:58 | NUR ---
rn note paged dr. mitchell. cancelled d/c as patient's status is changing. ordered re-culture for blood, sputum, urine.
--- NOTE | 2021-05-01 07:16 | NUR ---
RN NOTE TEMP 97.1 NOW AFTER TYLENOL ADMIN AND O2 IS UP 92-94%.
--- NOTE | 2021-05-01 07:20 | NUR ---
RN CLOSING NOTE PATIENT DESATTING AT 0530 AND CHILLS OBSERVED. TEMP TAKEN IT WAS 102.4, O2 WAS 82%, SOB 24 RR, BP 109/53, HR 145. RT CALLED NOW ON NONREBREATHER 15 L. TYLENOL WAS GIVEN AND COOLING MEASURES INITIATED AT THAT TIME. PAGED DR. DINH AND ORDERED RECULTURE OF URINE SPUTUM BLOOD AND CANCEL DISCHARGE OF PATIENT. CALLED [facility] TO INFORM THEM OF THE CHANGE. R FOOT 22 G STILL ON, PATENT AND INTACT. PATIENT CONNECTED TO TELE MONITOR, READS ST 132 BPM. PATIENT REMAINS AWAKE. WAS ABLE TO INCREASE GTF RATE TO 50ML/HR, RESIDUAL 15 ML. ENDORSED PATIENT TO ON COMING SHIFT MANJULA NAGEL.
[2021-05-01 07:45] LABS: ALBUMIN 1.6 g/dL (3.4-5.0); BILIRUBIN,TOTAL 0.3 mg/dL (0.2-1.0); CALCIUM, SERUM 8.9 mg/dL (8.5-10.1); CREATININE 0.8 mg/dL (0.6-1.3); MAGNESIUM 1.9 mg/dL (1.8-2.4); PHOSPHORUS 2.7 mg/dL (2.5-4.9)
--- NOTE | 2021-05-01 07:50 | NUR ---
TELE/RN OPENING NOTE RECEIVED PATIENT IN BED,AWAKE BUT UNABLE TO MAKE NEEDS KNOWN. CURRENTLY ON NONREBREATHER 15 L WITH O2 SAT READING OF 94%. R FOOT #22 G STILL ON, PATENT AND INTACT. PATIENT CONNECTED TO TELE MONITOR, READS ST 120'S BPM. PATIENT REMAINS AWAKE. GTF RATE TO 50ML/HR, RESIDUAL 15 ML. SAFETY ORECAUTIONS OBSERVED: BED LOCKED ON LOWEST POSITION, SIDE RAILS UPX3. WILL CONTINUE TO MONITOR PATIENT.
[2021-05-01 08:00] VITALS: BP 106/62
[2021-05-01] MEDS: MULTIVITAMINS,THERAGRAN 1 UDTAB TABLET PO SCH (09:45)
[2021-05-01] MEDS: PANTOPRAZOLE 40 MG TABLET.DR PO SCH (09:45)
[2021-05-01] MEDS: GABAPENTIN 300 MG CAPSULE PO SCH (09:45)
[2021-05-01] MEDS: ASPIRIN EC 81 MG TABLET.DR PO SCH (09:45)
[2021-05-01] MEDS: ENOXAPARIN SODIUM 40 MG/0.4 ML DISP.SYRIN SQ SCH (09:46)
[2021-05-01] MEDS: PROSOURCE / PROSTAT (PYXIS) 30 ML UDC GT SCH (09:54)
[2021-05-01] MEDS: CLOTRIMAZOLE 1% 15 GM TUBE TP SCH (09:54)
--- NOTE | 2021-05-01 13:15 | NUR ---
TELE/BEHAVIORAL HEALTH DIRECTOR NOTES PATIENT HAS BEEN CLEARED BY DR. WALLER TO DISCHARGE AND GO BACK TO THE SNF. PATIENT IS ALERT AND ORIENTEDX1, NON-VERBAL. CURRENTLY ON 6 LPM OF OXYGEN VIA NASAL CANNULA WITH 02 SAT OF 98%. NO DISCOMFORTS NOTED. CALLED [facility] AND GAVE ENDORSEMENT OVER THE PHONE TO ROBE ACOSTA. MURRAY CATHETER REMOVED, IV ACCESS REMOVED. DISCHARGE PACKET HANDED TO THE EMT. PATIENT IS COMFORTABLE WHEN PICKED UP BY EMT FOR TRANSPORTATION BACK TO SNF.
[2021-05-02] MEDS ORDERED: ENOXAPARIN SODIUM 40 MG/0.4 ML DISP.SYRIN SQ SCH (09:00)
== END 2021-05-01 13:30 | disposition hospice, home (50) | DRG 720 ==
LOC: ER 20:12 → TELE 22:27 → MED 04-30 10:19
PROC: 30233N1 Transfusion of Nonautologous Red Blood Cells into Peripheral Vein, Percutaneous Approach (ICD-10-PCS; principal; 2021-04-27)
DX: A41.9 Sepsis, unspecified organism (principal); J96.01 Acute respiratory failure with hypoxia; N17.0 Acute kidney failure with tubular necrosis; J69.0 Pneumonitis due to inhalation of food and vomit; R65.21 Severe sepsis with septic shock; G93.41 Metabolic encephalopathy; J15.6 Pneumonia due to other Gram-negative bacteria; B37.49 Other urogenital candidiasis; D64.9 Anemia, unspecified; E11.22 Type 2 diabetes mellitus with diabetic chronic kidney disease; I69.354 Hemiplegia and hemiparesis following cerebral infarction affecting left non-dominant side; I12.9 Hypertensive chronic kidney disease with stage 1 through stage 4 chronic kidney disease, or unspecified chronic kidney disease; I25.10 Atherosclerotic heart disease of native coronary artery without angina pectoris; N18.9 Chronic kidney disease, unspecified; J44.0 Chronic obstructive pulmonary disease with (acute) lower respiratory infection; E78.5 Hyperlipidemia, unspecified; E87.0 Hyperosmolality and hypernatremia; Z20.822 Contact with and (suspected) exposure to COVID-19; Z66 Do not resuscitate; Z93.1 Gastrostomy status; E11.40 Type 2 diabetes mellitus with diabetic neuropathy, unspecified; N40.1 Benign prostatic hyperplasia with lower urinary tract symptoms; K21.9 Gastro-esophageal reflux disease without esophagitis; R13.10 Dysphagia, unspecified; Z79.01 Long term (current) use of anticoagulants
CPT/HCPCS: 31720; 36415; 71045-TC; 80048-TC; 80053-TC; 80061-TC; 80076-TC; 80202-TC; 81001; 82962-TC; 83605-TC; 83735-TC; 84100-TC; 84484-TC; 85025-TC; 85730-TC; 86850-TC; 87040-TC; 87081-TC; 87086-TC; 94799-TC; A4216; A4349; A6253; A6403; C9803; G0378; J0692; J1450; J1650; J2185; J3370; J7030; J7040; J7050; J7060; P9016